=== PATIENT | male | born 1970 | race Caucasian/White ===

== ENCOUNTER 2020-05-13 16:11 | Outpatient (CLI) | payer BC, SELFPAY ==
--- NOTE | ~2020-05-13 | XR_ITS ---
EXAMINATION: XR chest 2V DATE: 05/13/2020 17:02 INDICATION: Cough and shortness of breath. TECHNIQUE: Frontal and lateral views of the chest were obtained. COMPARISON: Chest 2 views 04/02/19 FINDINGS: The chest demonstrates clear lungs without pneumonia, pleural effusion, or pneumothorax. Th e heart size is normal. There is mild chronic anterior wedging of 2 midthoracic vertebral bodies. IMPRESSION: 1. No acute cardiopulmonary disease. Reviewed, dictated and finalized at location A. [employer]IST
--- NOTE | ~2020-05-13 | US_ITS ---
EXAMINATION: US right upper quadrant DATE: 05/13/2020 16:58 INDICATION: Right upper quadrant abdominal pain. TECHNIQUE: Multiple grayscale and Doppler ultrasound images of the abdomen were obtained. COMPARISON: None FINDINGS: The visualized portions of the head and body of the pancreas are normal. There is diffuse h epatic steatosis. No liver surface nodularity. There is normal flow in main portal vein. The gallblad sai is normal in size. No gallstones or gallbladder wall thickening. There was no sonographic Gregg sign. The common duct is normal and measures 4 mm. Right kidney is normal. IMPRESSION: 1. Diffuse hepatic steatosis. Reviewed, dictated and finalized at location A. [employer]
--- NOTE | 2020-05-13 16:26 | ECG_ITS ---
Measurements Intervals [place] Rate: 64 P: 21 NC: 175 QRS: 17 QRSD: 113 T: 58 QT: 378 QTc: 390 Interpretive Statements SINUS RHYTHM BASELINE ARTIFACT- V3 NORMAL ECG Electronically Signed On 05-13-2020 19:17:43 [employer] COACH by Ruddy Robb D.O.
[2020-05-13 17:11] LABS: Basophils Percent Auto 0.2 % (0.2-1.2); Eosinophils Absolute Auto 0.1 K/mm3 (0-0.3); Hematocrit 46.5 % (42.0-52.0); Hemoglobin 16.7 g/dL (14.0-18.0); Immature Granulocyte Absolute 0.03 K/mm3 (0.00-0.031); Immature Granulocyte Percent A 0.2 % (0-0.5); Lymphocytes Absolute Auto 4.94 K/mm3 (0.9-3.2); Lymphocytes Percent Auto 40.8 % (18.3-44.2); Mean Corpuscular HGB Conc 35.9 g/dl (32-36); Mean Corpuscular Hemoglobin 33.5 pg (26-34); Mean Corpuscular Volume 93.2 fl (80-100); Mean Platelet Volume 9.5 fl (7.4-10.4); Monocytes Absolute Auto 0.7 K/mm3 (0.1-0.6); Monocytes Percent Auto 5.4 % (2.6-8.5); Neutrophils Absolute Auto 6.4 K/mm3 (1.3-6.7); Neutrophils Percent Auto 52.4 % (45.5-73.1); Platelet Count Result 222 k/mm3 (150-375); Red Blood Count 4.99 M/mm3 (4.6-6.20); Red Cell Distribution Width 12.9 % (11.5-14.5); White Blood Count 12.1 K/mm3 (4.5-10.0)
[2020-05-13 17:23] LABS: Alanine Aminotransferase 42 U/L (4-50); Albumin Level 4.4 g/dL (3.5-5.1); Alkaline Phosphatase 58 U/L (38-126); Amylase 59 U/L (30-110); Anion Gap 3 mmol/L (8-16); Aspartate Amino Transferase 40 U/L (17-59); Bilirubin,Total 0.6 mg/dL (0.2-1.3); Blood Urea Nitrogen 9 mg/dL (9-20); Calcium 9.4 mg/dL (8.4-10.2); Carbon Dioxide 35 mmol/L (22-30); Chloride 102 mmol/L (98-107); Estimated Glomerular Filt Rate > 60; Glucose 89 mg/dL (75-110); Lipase 49 U/L (23-300); Potassium 3.8 mmol/L (3.4-5.0); Sodium 140 mmol/L (137-145)
== END 2020-05-13 16:12 | disposition home or self-care (01) ==
PROVIDERS: PCP Family Medicine; Visit Provider Nurse Practitioner Family
DX: R10.11 Right upper quadrant pain (principal); R06.02 Shortness of breath; R05 Cough; R53.83 Other fatigue; R10.13 Epigastric pain; K76.0 Fatty (change of) liver, not elsewhere classified
CPT/HCPCS: 36415; 71046; 76705; 80053; 82150; 83690; 84443; 85025; 93005

== ENCOUNTER 2020-05-19 10:19 | Outpatient (CLI) | payer BC, SELFPAY ==
--- NOTE | ~2020-05-19 | XR_ITS ---
EXAMINATION: XR sniff test with CXR2V EXAM DATE: 05/19/2020 10:38 INDICATION: R06.02 - Shortness of breath . TECHNIQUE: Sniff test performed, forceful inspiration through nose while fluoroscopy administered ce ntered at the diaphragm. Frontal and lateral chest x-rays. Dose reduction digital pulsed fluoroscopy was used at 4 frames per second with DAP 0.4 Gycm2. Chest x-ray 05/13/2020 FINDINGS: The lungs are clear. There are no pleural effusions. The cardiomediastinal silhouette is within normal limits. There is no pneumothorax suspected. The bones and soft tissues are unremarkab le. Diaphragm moves in symmetric fashion. Right hemidiaphragm has normal position. IMPRESSION: 1. Unremarkable chest x-ray. 2. Normal diaphragm motion. Reviewed, dictated and finalized at location A. 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
== END 2020-05-19 10:20 | disposition home or self-care (01) ==
PROVIDERS: PCP Family Medicine; Visit Provider Nurse Practitioner Family
DX: R06.02 Shortness of breath (principal); R10.9 Unspecified abdominal pain
CPT/HCPCS: 71046; 76000

== ENCOUNTER 2020-05-27 12:28 | Outpatient (CLI) | payer BC, SELFPAY ==
--- NOTE | ~2020-05-27 | CT_ITS ---
EXAMINATION: CT diagnostic chest wo con EXAM DATE: 05/27/2020 13:00 INDICATION: Dyspnea after COVID 19. Chronic cough. TECHNIQUE: Spiral CT of the chest without contrast. Axial, coronal and sagittal images were reviewe d. Coronal maximum intensity pixel images of chest reviewed. The dose-length product (DLP) for this examination was 326.48 mGy-cm. The exposure was tailored according to patient size (auto mA exposur e control), and iterative reconstruction (ASIR) was used as additional dose reduction technique. Glenys elation is made to stiff test 05/19/2020, chest x-ray 05/13/2020, chest x-ray 04/02/2019. FINDINGS: There is mild emphysema. The lungs are clear, no evidence of interstitial lung disease or s carring from patient's episode of COVID. There are a few scattered calcified lung parenchymal granul omas. There are no pleural or pericardial effusions. Tracheobronchial tree is patent. There is no mediastinal, hilar or axillary lymphadenopathy. There is no pneumothorax. Heart normal in size. There is mild coronary arterial calcification, arterial sclerosis. Upper abdomen is unremarkable. There is thoracic spondylosis without osteoblastic or osteolytic lesions identified. IMPRESSION: 1. No evidence of residual sequela from COVID pneumonia. 2. Mild emphysema. 3. Hepatic steatosis. Reviewed, dictated and finalized at location A. 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
== END 2020-05-27 12:29 ==
PROVIDERS: PCP Family Medicine; Visit Provider Nurse Practitioner Family
DX: R06.00 Dyspnea, unspecified (principal); J43.9 Emphysema, unspecified; K76.0 Fatty (change of) liver, not elsewhere classified
CPT/HCPCS: 71250

== ENCOUNTER 2020-07-07 14:28 | Outpatient (CLI) | payer OTHER, SELFPAY ==
--- NOTE | 2020-07-07 17:48 | P.PCNPFT_ITS ---
PFT Interpretation This is a pulmonary function test with pre and post-bronchodilator spirometry, plethysmography and diffusing capacity. The test was performed and results interpreted in accordance with the 2019 and 2005 ATS/ERS Task Force guidelines respectively using the Global Lung Function Initiative-2012 reference equations. Patient demonstrated good effort and c ooperation. Reproducibility criteria were met. The quality of the pre bronchodilator spirometry maneuver was Grade A and post bronchodilator spirometry maneuver was Grade A. Findings: Spirometry: The contour of the inspiratory and expiratory flow tracing are normal. The pre bronchodilator FVC is 4.64 L, 91% predicted.The pre bronchodilator FEV1 is 3.33 L, 83% predicted. The FEV1: FVC ratio 72%. The post bronchodilator FVC is 4.79 L, representing 3% increase. The post bronchodilator FEV1 is 3.54 L, representing a 6% increase. Plethysmography: The total lung capacity is 6.55 L, 92% predicted. The functional residual capacity is 2.73 L, 74% predicted. The residual volume is 1.90 L, 90% predicted. Diffusing capacity: The absolute diffusion capacity is 19.7, 64% predicted. The diffusing capacity corrected for alveolar volume is 3.64, 81% predicted. Impression: The spirometry is normal without evidence of an obstructive abnormality. There is no significant improvement after inhaling a single dose of albuterol. The lung volumes are normal. The absolute diffusing capacity is mildly decreased and normalizes when corrected for alveolar volume. There are no prior studies for comparison
== END 2020-07-07 14:29 | disposition home or self-care (01) ==
LOC: ANHPFT 14:29
PROVIDERS: PCP Family Medicine; Visit Provider Internal Medicine Critical Care Medicine
DX: J44.9 Chronic obstructive pulmonary disease, unspecified (principal)
CPT/HCPCS: 94060; 94726; 94729

== ENCOUNTER 2021-09-20 08:31 | Outpatient (CLI) | payer OTHER, SELFPAY ==
--- NOTE | ~2021-09-20 | MR_ITS ---
EXAMINATION: MR cervical spine wo con DATE: 09/20/2021 09:23 INDICATION: Degeneration of intervertebral disc. TECHNIQUE: Magnetic resonance imaging (MRI) of the cervical spine was performed without intravenous c ontrast. Sequences included sagittal T2-weighted FSE, sagittal T2-weighted FS FSE, sagittal T1-weight ed FSE, axial MERGE, and axial T2-weighted FSE. COMPARISON: Cervical spine MRI 07/08/2017 FINDINGS: There is 5 degrees dextrocurvature of cervical spine. Vertebral body heights are normal in cervical spine. Intervertebral disc heights are normal. The spinal cord signal intensity is normal. T he following disc levels are specifically discussed: C2-C3: The disc does not extend beyond the endplate margin. There is no uncovertebral joint osteoarth ritis. There is mild bilateral facet joint osteoarthritis. There is no neural foraminal stenosis. The re is no central canal stenosis. C3-C4: The disc does not extend beyond the endplate margin. There is mild right and moderate left unc overtebral joint osteoarthritis. There is moderate left facet joint osteoarthritis. There is moderate left neural foraminal stenosis. There is no central canal stenosis. C4-C5: The disc does not extend beyond the endplate margin. There is mild bilateral uncovertebral willa nt osteoarthritis. There is mild right and severe left facet joint osteoarthritis. There is mild bila teral neural foraminal stenosis. There is no central canal stenosis. C5-C6: The disc is bulging. There is mild bilateral uncovertebral joint osteoarthritis. There is mild left facet joint osteoarthritis. There is mild bilateral neural foraminal stenosis. There is mild ce ntral canal stenosis. C6-C7: The disc is bulging. There is mild bilateral uncovertebral joint osteoarthritis. There is mode rate right and mild left facet joint osteoarthritis. There is mild right and moderate left neural for aminal stenosis. There is no central canal stenosis. C7-T1: The disc does not extend beyond the endplate margin. There is no uncovertebral joint osteoarth ritis. There is severe right and moderate left facet joint osteoarthritis. There is mild bilateral ne ural foraminal stenosis. There is no central canal stenosis. IMPRESSION: 1. Moderate left neural foraminal stenosis at C3-C4 and C6-C7. Otherwise mild cervical spondylosis. Reviewed, dictated and finalized at location A. IMPRESSION: 1. Moderate left neural foraminal stenosis at C3-C4 and C6-C7. Otherwise mild c ervical spondylosis.
--- NOTE | ~2021-09-20 | MR_ITS ---
EXAMINATION: MR thoracic spine wo con DATE: 09/20/2021 09:23 INDICATION: Degeneration of intervertebral disc. TECHNIQUE: Magnetic resonance imaging (MRI) of the thoracic spine was performed without intravenous c ontrast. Sagittal localizer T1-weighted FSE of the cervical spine was obtained. Thoracic spine sequen jon included sagittal T2-weighted FSE, sagittal T1-weighted FSE, sagittal T2-weighted FS FSE, and axi al T2-weighted FSE. COMPARISON: Chest CT 05/27/2020 FINDINGS: Bone alignment is normal. There is mild chronic height loss of T7, T8, and T9 vertebral bod ies. There are Schmorl's nodes at multiple levels. Intervertebral disc heights are normal. At T3-T4, there is a central protrusion with mild central canal stenosis. At T4-T5, there is a central extrusio n with mild central canal stenosis and ventral indentation of the spinal cord. At T5-T6, there is a r ight central extrusion with mild central canal stenosis and ventral indentation of the spinal cord. A t T6-T7, there is a left central extrusion with mild central canal stenosis and ventral indentation o f the spinal cord. At T7-T8, the disc is bulging with mild central canal stenosis. Epidural lipomatos is is noted. There is multilevel mild to moderate facet joint osteoarthritis. At T2-T3, there is joann re right facet joint osteoarthritis. No neural foraminal stenosis. IMPRESSION: 1. Mild thoracic spondylosis. Reviewed, dictated and finalized at location A.
--- NOTE | ~2021-09-20 | MR_ITS ---
EXAMINATION: MR lumbar spine wo con DATE: 09/20/2021 09:30 INDICATION: Degeneration of intervertebral disc. Mid to low back pain. TECHNIQUE: Magnetic resonance imaging (MRI) of the lumbar spine was performed without intravenous con trast. Sequences included sagittal T2-weighted FSE, sagittal T2-weighted FS FSE, sagittal T1-weighted FSE, and axial T2-weighted FSE. COMPARISON: None FINDINGS: There is 4 degrees levocurvature of lumbar spine. There is 3 mm retrolisthesis of L5 on S1. Vertebral body heights are normal. There is moderately decreased disc height at L5-S1 with endplate remodeling. The distal spinal cord signal intensity is normal. The conus medullaris is at L1. The fol lowing disc levels are specifically discussed: L1-L2: The disc does not extend beyond the endplate margin. There is mild left facet joint osteoarthr itis. There is no neural foraminal stenosis. There is no central canal stenosis. L2-L3: The disc does not extend beyond the endplate margin. There is mild bilateral facet joint osteo arthritis. There is no neural foraminal stenosis. There is no central canal stenosis. L3-L4: The disc does not extend beyond the endplate margin. There is mild bilateral facet joint osteo arthritis. There is no neural foraminal stenosis. There is no central canal stenosis. L4-L5: There is a right foraminal extrusion. There is moderate right and mild left facet joint osteoa rthritis. There is moderate right neural foraminal stenosis. There is mild stenosis of right lateral recess. L5-S1: The disc is bulging with superimposed central extrusion. There is mild right and moderate left facet joint osteoarthritis. There is moderate bilateral neural foraminal stenosis. There is mild jessica tral canal stenosis. IMPRESSION: 1. Moderate lower lumbar spondylosis. Reviewed, dictated and finalized at location A.
--- NOTE | ~2021-09-20 | XR_ITS ---
EXAMINATION: XR shoulder LT min 2V DATE: 09/20/2021 09:43 INDICATION: Left shoulder pain. TECHNIQUE: 4 views of left shoulder were obtained. COMPARISON: None. FINDINGS: Bone alignment is normal. No fracture. There is mild osteoarthritis of glenohumeral joint a nd acromioclavicular joint characterized by tiny osteophytes. IMPRESSION: 1. Mild polyarticular osteoarthritis. Reviewed, dictated and finalized at location A.
== END 2021-09-20 08:32 ==
PROVIDERS: PCP Family Medicine; Visit Provider Family Medicine
DX: M47.815 Spondylosis without myelopathy or radiculopathy, thoracolumbar region (principal); M48.05 Spinal stenosis, thoracolumbar region; M47.813 Spondylosis without myelopathy or radiculopathy, cervicothoracic region; M48.03 Spinal stenosis, cervicothoracic region; M19.012 Primary osteoarthritis, left shoulder
CPT/HCPCS: 72141; 72146; 72148; 73030

== ENCOUNTER 2024-06-16 14:41 | Outpatient (CLI) | payer OTHER, SELFPAY ==
--- NOTE | ~2024-06-16 | XR_ITS ---
EXAM: XR pelvis 1-2V, XR hip BI wo pelvis DATE: 06/16/2024 15:08 HISTORY: NON TRAUMA ERINN HIP PAIN . COMPARISON: None available. FINDINGS: Normal mineralization. No fracture or dislocation. No lytic or blastic lesion. Mild bilate ral superior hip joint space narrowing. Lumbar degenerative disc disease. Mild scattered pelvic enthe sopathy. No erosion or periosteal change. Scattered vascular calcifications. IMPRESSION: Mild bilateral hip osteoarthritis. Reviewed, dictated and finalized at location K. RMINATOR HELPER IMPRESSION: Mild bilateral hip osteoarthritis.
--- OUTSIDE RECORDS SUMMARY | 2024-06-16 17:38 | XMS_ITS | Data Portability ---
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 Plan of Treatment Reminders Order Date Submit Date Provider Last Modified By Organization Details Last Modified Time Details Appointments None recorded. Lab [facility], serum or plasma [address] [email or web address] Not available 3 12:12:15 testosteron e, free + total, serum 2022 023 [facility] Not available 3 12:08:02 BMP, serum or plasma 2022 023 [facility] [email or web address] Not available 3 12:10:07 lipid panel, serum 2022 023 [facility] [email or web address] Not available 3 12:06:28 hepatic function panel, serum 2022 023 [facility] gh[facility] Not available 3 12:07:24 CBC w/ auto diff [address] [facility] Not available 3 12:56:50 Referral None recorded. Procedures None recorded. Surgeries None recorded. Imaging None recorded. Medication Orders hydrocodone 10 mg-acetamin ophen 325 mg tablet 2022 023 [facility], [address], [place], [id number], 3 12:24:18 ipratropium 0.5 mg-albutero l 3 mg (2.5 mg base)/3 mL nebulizatio n soln 2022 023 [facility] #17892, [address], [place], [id number], 12:20:36 tadalafil 20 mg tablet 2022 023 [facility] #60329, [address], [place], [id number], 09:37:11 Patient TargetsNo targets recorded. Patient InstructionsNo instructions recorded. Reason for Referral None Reported. Results Created Date Observation Date Name Description Value Unit Range Abnormal Flag Note LastModifiedBy Organization Detail LastModifiedTime 07/04/1907/03/2022 CBC/C OMPLE TE BLD COUNT W/DIF F white blood cells 12.6 x10'3 /uL 4.2-10 .8 high Not Available [facility] (Lab) [address] [place], [address], 07/03/2022 19:50:28 07/04/19 23 07/03/2022 CBC/C OMPLE TE BLD COUNT W/DIF F red blood cells 5.08 x10'6 /uL 4.10-5 .80 Not Available [facility] (Lab) [address] [place], [address], 07/03/2022 19:50:28 07/04/19 23 07/03/2022 CBC/C OMPLE TE BLD COUNT W/DIF F hemoglobin 16.5 g/dL 13.2-1 7.0 Not Available [facility] (Lab) [address] [place], [address], 07/03/2022 19:50:28 07/04/19 23 07/03/2022 CBC/C OMPLE TE BLD COUNT W/DIF F hematocrit 48.6 % 39.3-5 0.0 Not Available [facility] (Lab) [address] [place], [address], 07/03/2022 19:50:28 07/04/19 23 07/03/2022 CBC/C OMPLE TE BLD COUNT W/DIF F mean red cell volume 95.7 fL 80.0-9 7.0 Not Available [facility] (Lab) [address] [place], [address], 07/03/2022 19:50:28 07/04/19 23 07/03/2022 CBC/C OMPLE TE BLD COUNT W/DIF F mean red cell hemoglobin 32.5 pg 27.0-3 3.0 Not Available [facility] (Lab) [address] [place], [address], 07/03/2022 19:50:28 07/04/19 23 07/03/2022 CBC/C OMPLE TE BLD COUNT W/DIF F mean RBC HGB concentratio n 34.0 g/dL 31.0-3 6.0 Not Available [facility] (Lab) [address] [place], [address], 07/03/2022 19:50:28 07/04/19 23 07/03/2022 CBC/C OMPLE TE BLD COUNT W/DIF F red cell distribution width 13.0 % 11.8-1 5.5 Not Available [facility] (Lab) [address] [place], [address], 07/03/2022 19:50:28 07/04/19 23 07/03/2022 CBC/C OMPLE TE BLD COUNT W/DIF F platelets 232 x10'3 /uL 150-40 0 Not Available [facility] (Lab) [address] [place], [address], 07/03/2022 19:50:28 07/04/19 23 07/03/2022 CBC/C OMPLE TE BLD COUNT W/DIF F mean platelet volume 10.4 fL 9.0-12 .4 Not Available [facility] (Lab) [address] [place], [address], 07/03/2022 19:50:28 07/04/19 23 07/03/2022 CBC/C OMPLE TE BLD COUNT W/DIF F neutrophils 64.6 % 39.0-7 2.0 Not Available [facility] (Lab) [address] [place], [address], 07/03/2022 19:50:28 07/04/1907/03/2022 CBC/C OMPLE TE BLD COUNT W/DIF F lymphocytes 28.3 % 16.0-4 7.0 Not Available [facility] (Lab) [address] [place], [address], 07/03/2022 19:50:28 07/04/19 23 07/03/2022 CBC/C OMPLE TE BLD COUNT W/DIF F monocytes 5.0 % 5.0-12 .0 Not Available [facility] (Lab) [address] [place], [address], 07/03/2022 19:50:28 07/04/1907/03/2022 CBC/C OMPLE TE BLD COUNT W/DIF F eosinophils 1.3 % 1.0-7. 0 Not Available [facility] (Lab) [address] [place], [address], 07/03/2022 19:50:28 07/04/19 23 07/03/2022 CBC/C OMPLE TE BLD COUNT W/DIF F basophils 0.3 % 0.0-2. 0 Not Available [facility] (Lab) [address] [place], [address], 07/03/2022 19:50:28 07/04/19 23 07/03/2022 CBC/C OMPLE TE BLD COUNT W/DIF F immature granulocytes 0.5 % 0.00-0 .50 Not Available [facility] (Lab) [address] [place], [address], 07/03/2022 19:50:28 07/04/19 23 07/03/2022 CBC/C OMPLE TE BLD COUNT W/DIF F neutrophils, absolute count 8.17 x10'3 /uL 1.5-8. 0 high Not Available [facility] (Lab) [address] [place], [address], 07/03/2022 19:50:28 07/04/19 23 07/03/2022 CBC/C OMPLE TE BLD COUNT W/DIF F lymphocytes, absolute count 3.58 x10'3 /uL 1.07-3 .43 high Not Available [facility] (Lab) [address] [place], [address], 07/03/2022 19:50:28 07/04/1907/03/2022 CBC/C OMPLE TE BLD COUNT W/DIF F monocytes, absolute count 0.63 x10'3 /uL 0.29-0 .99 Not Available [facility] (Lab) [address] [place], [address], 07/03/2022 19:50:28 07/04/19 23 07/03/2022 CBC/C OMPLE TE BLD COUNT W/DIF F eosinophils, absolute count 0.16 x10'3 /uL 0.02-0 .53 Not Available [facility] (Lab) [address] [place], [address], 07/03/2022 19:50:28 07/04/19 23 07/03/2022 CBC/C OMPLE TE BLD COUNT W/DIF F basophils, absolute count 0.04 x10'3 /uL 0.01-0 .08 Not Available [facility] (Lab) [address] [place], [address], 07/03/2022 19:50:28 07/04/19 23 07/03/2022 CBC/C OMPLE TE BLD COUNT W/DIF F immature granulocytes ,absolute 0.06 x10'3 /uL 0.00-0 .05 high Not Available [facility] (Lab) [address] [place], [address], 07/03/2022 19:50:28 07/04/19 23 07/03/2022 CBC/C OMPLE TE BLD COUNT W/DIF F nucleated red blood cells 0.0 % -0 Not Available [facility] (Lab) [address] [place], [address], 07/03/2022 19:50:28 07/04/19 23 07/03/2022 CBC/C OMPLE TE BLD COUNT W/DIF F NRBC# 0.00 x10'3 /uL Not Available [facility] (Lab) [address] [place], [address], 07/03/2022 19:50:28 07/04/19 23 07/03/2022 BASIC METAB OLIC PANEL sodium 137 mmol/ L 137-14 5 Not Available [facility] (Lab) [address] [place], [address], 07/03/2022 21:22:22 07/04/19 23 07/03/2022 BASIC METAB OLIC PANEL potassium 4.0 mmol/ L 3.5-5. 1 Not Available [facility] (Lab) [address] [place], [address], 07/03/2022 21:22:22 07/04/19 23 07/03/2022 BASIC METAB OLIC PANEL chloride 107 mmol/ L 98-107 Not Available [facility] (Lab) [address] [place], [address], 07/03/2022 21:22:22 07/04/19 23 07/03/2022 BASIC METAB OLIC PANEL carbon dioxide 19 mmol/ L 22-30 low Not Available [facility] (Lab) [address] [place], [address], 07/03/2022 21:22:22 07/04/19 23 07/03/2022 BASIC METAB OLIC PANEL anion gap 15.0 mmol/ L 14-22 Not Available [facility] (Lab) [address] [place], [address], 07/03/2022 21:22:22 07/04/19 23 07/03/2022 BASIC METAB OLIC PANEL glucose 116 mg/dL 70-99 high Not Available [facility] (Lab) [address] [place], [address], 07/03/2022 21:22:22 07/04/19 23 07/03/2022 BASIC METAB OLIC PANEL BUN 11 mg/dL 8-19 Not Available [facility] (Lab) [address] [place], [address], 07/03/2022 21:22:22 07/04/19 23 07/03/2022 BASIC METAB OLIC PANEL creatinine 0.69 mg/dL 0.66-1 .25 Not Available [facility] (Lab) [address] [place], [address], 07/03/2022 21:22:22 07/04/19 23 07/03/2022 BASIC METAB OLIC PANEL GFR >60 Refer ence Range : [place] [facility] GFR Healt hy Adult : >60 mL/mi n/1.7 3 m2 Chron ic Kidne y Disea se: 15-60 mL/mi n/1.7 3 m2 Kidne y Failu re: <15/m L/min /1.73 m2 www.n iddk. nih.g ov The MDRD study equat ion has not been valid ated in child darrel <18 years of age; pregn ant women ; the elder ly >85 years of age; or in some racia l or ethni c subgr oups, such as Hispa nics. Outsi de the valid ated kalli eters , estim ated GFR is less accur ate, requi ring clini juan pablo judgm ent on a case- by-ca se basis . Clini juan pablo inter preta tion for other races and ages must be made by the clini mauricio. The MDRD study equat ion has not been valid ated for the evalu ation of serum creat inine relat ed to nutri joseluis l statu s or medic ation usage . For perso ns <18 years of age, a pedia tric GFR calcu lator is avail able on the [facility] websi te: https ://evangelina noble.pricila barrera.o adrian/pr alvaradoess ional s/kdo qi/gf r_cal culat or Not Available [facility] (Lab) [address] [place], [address], 07/03/2022 21:22:22 07/04/19 23 07/03/2022 BASIC METAB OLIC PANEL calcium 9.2 mg/dL 8.4-10 .2 Not Available [facility] (Lab) [address] [place], [address], 07/03/2022 21:22:22 07/04/19 23 07/03/2022 LIPID PANEL cholesterol 116 mg/dL 140-19 9 low NIH MEL NSUS RECOM MENDA TION FOR ELIOT STERO L: ADULT CHILD LOW RISK: <200 <170 BORDE RLINE : <200- 239 ----- HIGH RISK: >240 >200 Not Available [facility] (Lab) [address] [place], [address], 07/03/2022 21:22:28 07/04/19 23 07/03/2022 LIPID PANEL triglyceride s 162 mg/dL 0-150 high NIH MEL NSUS REPOR T RECOM MENDA TION FOR TRIGL YCERI ARIEL: ADULT CHILD LOW RISK: <150 ----- BODER LINE: 150-1 99 ----- HIGH RISK: >200 ----- Not Available [facility] (Lab) [address] [place], [address], 07/03/2022 21:22:28 07/04/19 23 07/03/2022 LIPID PANEL HDL cholesterol 35 mg/dL 40- low Not Available [facility] (Lab) [address] [place], [address], 07/03/2022 21:22:28 07/04/19 23 07/03/2022 LIPID PANEL LDL cholesterol, calculated 49 mg/dL 0-130 NIH MEL NSUS REPOR T RECOM MENDA TIONS FOR LDL: ADULT CHILD LOW RISK <130 <110 (OPTI MAL LDL) <100 ----- MICHELLE RLINE : 130-1 59 ----- HIGH RISK: >160 >130 A TRIGL YCERI DE RESUL T >400 INVAL IDATE S THE CALCU LATIO N FOR LDL FRACT IONAT ION - THE LDL RESUL T WILL NOT BE REPOR BRANDI. Not Available [facility] (Lab) [address] [place], [address], 07/03/2022 21:22:28 07/04/19 23 07/03/2022 HEPAT IC/LI FREDERICK PANEL alkaline phosphatase 76 U/L 38-126 Not Available [facility] (Lab) [address] [place], [address], 07/03/2022 21:22:29 07/04/19 23 07/03/2022 HEPAT IC/LI FREDERICK PANEL alanine aminotransfe rase 45 U/L 0-50 Not Available [facility] (Lab) [address] [place], [address], 07/03/2022 21:22:29 07/04/19 23 07/03/2022 HEPAT IC/LI FREDERICK PANEL aspartate aminotransfe rase 33 U/L 15-46 Not Available [facility] (Lab) [address] [place], [address], 07/03/2022 21:22:29 07/04/19 23 07/03/2022 HEPAT IC/LI FREDERICK PANEL bilirubin, total 0.60 mg/dL 0.20-1 .30 Not Available [facility] (Lab) [address] [place], [address], 07/03/2022 21:22:29 07/04/19 23 07/03/2022 HEPAT IC/LI FREDERICK PANEL bilirubin, conjugated (direct) 0.00 mg/dL 0.00-0 .30 Not Available [facility] (Lab) [address] [place], [address], 07/03/2022 21:22:29 07/04/19 23 07/03/2022 HEPAT IC/LI FREDERICK PANEL biliurubin,u ncong. (indirect) 0.20 mg/dL 0.00-1 .1 Not Available [facility] (Lab) [address] [place], [address], 07/03/2022 21:22:29 07/04/19 23 07/03/2022 HEPAT IC/LI FREDERICK PANEL total protein 7.0 g/dL 6.3-8. 2 Not Available [facility] (Lab) [address] [place], [address], 07/03/2022 21:22:29 07/04/19 23 07/03/2022 HEPAT IC/LI FREDERICK PANEL albumin 4.4 g/dL 3.4-5. 0 Not Available [facility] (Lab) [address] [place], [address], 07/03/2022 21:22:29 07/04/19 23 07/03/2022 HEPAT IC/LI FREDERICK PANEL globulin 2.6 g/dL 2.6-4. 2 Not Available [facility] (Lab) [address] [place], [address], 07/03/2022 21:22:29 07/04/19 23 07/03/2022 HEPAT IC/LI FREDERICK PANEL A/G ratio 1.7 ratio 1.0-2. 0 Not Available [facility] (Lab) [address] [place], [address], 07/03/2022 21:22:29 07/04/19 23 07/03/2022 PSA SCREE N PSA medicare screen 1.08 NG/mL 0.00-4 .00 Not Available Not Available 07/03/2022 22:02:35 07/04/19 23 07/14/2022 TESTO STERO NE, FREE+ TOTAL LC/MS testosterone , total, lc/MS 265.7 NG/dL 264.0- 916.0 This [facility] LC/MS -MS metho d is curre ntly certi fied by the CDC Hormo ne Stand ardiz ation Progr am (HoSt ). Adult male refer ence inter daniella is based on a popul ation of healt hy nonob froylan males (BMI <30) betwe en 19 and 39 years old. Araceli mercedes et.al . JCEM 2017, 102;1 161-1 173. PMID: 91774 103. Not Available [facility] (Lab) [address] [place], [address], 07/14/2022 12:12:01 07/04/19 23 07/14/2022 TESTO STERO NE, FREE+ TOTAL LC/MS testosterone , free 5.71 NG/dL 5.00-2 1.00 Not Available [facility] (Lab) [address] [place], [address], 07/14/2022 12:12:01 07/04/19 23 07/14/2022 TESTO STERO NE, FREE+ TOTAL LC/MS % free testosterone 2.15 % 1.50-4 .20 Perfo rmed at: [facility] [place] [address] [facility] , [place] [address] [address] Lab Direc tor: Renu taylor MD, Phone : [phone] Not Available [facility] (Lab) [address] [place], [address], 07/14/2022 12:12:01 06/16/19 25 06/16/2024 imagi ng/di alvinoos tic resul t No observ ation record ed. [facility] [address], [place], [address], 06/16/2024 17:04:52 Result Notes None recorded. Problems Name Problem SNOMED Code Status Onset Date Resolution Date Notes Provider Name and Address Organization Details Recorded Time Open wound of hand 962602363 Active 2021 Not Available [facility] 3 14:48:27 Chronic obstructiv e pulmonary disease 62369806 Active 2021 Not Available [facility] 3 14:48:27 Hand and wrist extensor tendon rupture 007740420 Active 2021 Not Available [facility] 3 14:48:28 Injury of muscle and tendon at forearm level 244404767 Active 2021 Not Available [facility] 3 14:48:28 Laceration of hand 099911305 Active 2021 Not Available [facility] 3 14:48:28 Scoliosis deformity of spine 997700633 Active 2021 Not Available [facility] 3 14:48:28 Pain in right hand 6926147602019 09 Active 2021 Not Available [facility] 3 14:48:28 Osteoarthr itis 640771406 Active 2021 Not Available [facility] 3 14:48:28 Hyperlipid emia 11950796 Active 2021 Not Available [facility] 3 14:48:28 Degenerati on of interverte bral disc 73531314 Active 2021 Not Available [facility] 3 14:48:28 Erectile dysfunctio n 081620578 Active 2022 Domonique Troy MD [address], [place], [address] , [facility] [employer] [facility] 3 09:29:29 Insomnia 809653601 Active 2022 Domonique Troy MD [address], [facility] [address], [place], [address] , [facility] [employer] [facility] 3 17:43:00 Problem Notes None recorded. Procedures Surgical History Date Name Laterality Status Provider Name and Address Organization Details Recorded Time 2 colonoscopy completed Domonique Troy MD [address], [place], [address], [facility] [employer] [facility] 07/06/2022 10:59:47 Imaging Results Imaging Date Name Status LastModified by Organiz ation Details LastModified Time 06/16/2024 imaging/diagn ostic result active [place] [address], [place], [address], 06/16/2024 17:04:52 Procedure Notes None recorded. Medical Equipment None Reported. Medications Name Sig Start Date Stop Date Status Note LastModified by Organization Details LastModified Time doxycycline hyclate 100 mg capsule 10/12 completed Not Available Not Available Not Available ipratropium 0.5 mg-albutero l 3 mg (2.5 mg base)/3 mL nebulizatio n soln USE 3 ML VIA NEBULIZER FOUR TIMES DAILY active Not Available Not Available No t Available hydroxyzine HCl 50 mg tablet TAKE 1 TABLET BY MOUTH EVERY 6 HOURS NEEDED FOR ANXIETY active Not Available Not Available No t Available hydrocodone 10 mg-acetamin ophen 325 mg tablet TAKE 1 TABLET BY MOUTH FOUR TIMES DAILY NEEDED active Not Available Not Available No t Available aspirin 81 mg tablet,alonso yed release Take 1 tablet every day by oral route. 2021 active Not Available Not Available Not Avai lable hydrocodone 7.5 mg-acetamin ophen 325 mg tablet TAKE 1 TABLET BY MOUTH EVERY 6 HOURS active Not Available Not Available No t Available cephalexin 500 mg capsule Take 1 capsule twice a day by oral route for 7 days. active Not Available Not Available No t Available promethazin e 25 mg tablet 07/03 completed Not Available Not Available Not Available ibuprofen 600 mg tablet 07/03 completed Not Available Not Available Not Available levofloxaci n 750 mg tablet TAKE 1 TABLET BY MOUTH ONCE DAILY FOR 7 DAYS 12/07 completed Not Available Not Available Not Available zolpidem 10 mg tablet TAKE 1 TABLET BY MOUTH EVERY NIGHT AT BEDTIME NEEDED FOR INSOMNIA active Not Available Not Available No t Available methylpredn isolone 4 mg tablets in a dose pack TAKE BY MOUTH DIRECTED ON INSIDE OF PACKAGE active Not Available Not Available No t Available albuterol sulfate HFA 90 mcg/actuati on aerosol inhaler INHALE 2 PUFFS BY MOUTH EVERY 4 HOURS NEEDED active Not Available Not Available No t Available doxycycline hyclate 100 mg tablet Take 1 tablet twice a day by oral route for 7 days. 10/12 completed Not Available Not Available Not Available amoxicillin 875 mg-potassiu m clavulanate 125 mg tablet Take 1 tablet every 12 hours by oral route for 7 days. 07/03 completed Not Available Not Available Not Available escitalopra m 10 mg tablet TAKE 1 TABLET BY MOUTH EVERY DAY active Not Available Not Available No t Available rosuvastati n 20 mg tablet TAKE 1 TABLET BY MOUTH DAILY active Not Available Not Available No t Available tadalafil 20 mg tablet TAKE 1 TABLET BY MOUTH 60 MINUTES BEFORE SEXUAL ACTIVITY. DO NOT EXCEED 1 PILL IN 24 HOURS active Not Available Not Available No t Available Vitals Date Recorded Body mass index (BMI) Body mass index (BMI) Body height Body height Oxygen saturation Oxygen saturation in Arterial blood by Pulse oximetry Pain severity - 0-10 verbal numeric rating [Score] - Reported Heart rate Body temperature Body weight Body weight Systolic blood pressure Diastolic blood pressure Provider Name and Address Organization Details Last Updated DateTime 3 27.8 kg/m2 27.6 kg/m2 180.34 cm 180.34 cm 96 % 96 % 1 81 /min 98 [degF] 30242.8 8 g 16675.2 9 g 121 mm[Hg] 72 mm[Hg] Not Available [facility] 3 14:47:15 Date Recorded Body height Body mass index (BMI) Body weight Body temperature Heart rate Oxygen saturation Oxygen saturation in Arterial blood by Pulse oximetry Systolic blood pressure Diastolic blood pressure Provider Name and Address Organization Details Last Updated DateTime 3 180.34 cm 28.2 kg/m2 36499.6 6 g 97.9 [degF] 80 /min 98 % 98 % 134 mm[Hg] 80 mm[Hg] Aliyah Latham MA [place] [facility] 3 09:18:00 Date Recorded Body height Body mass index (BMI) Body weight Body temperature Heart rate Oxygen saturation Oxygen saturation in Arterial blood by Pulse oximetry Systolic blood pressure Diastolic blood pressure Provider Name and Address Organization Details Last Updated DateTime 3 180.34 cm 29.3 kg/m2 07071.4 g 97.7 [degF] 76 /min 97 % 97 % 124 mm[Hg] 76 mm[Hg] Jens Howard RN [place] [facility] [employer] [employer] 3 12:12:22 Social History Question Answer Notes LastModified by [employer] Details LastModified Time Tobacco Smoking Status Current Every Day Smoker 2 ppd Not Available [facility] 06/28/2022 14:45:26 What Is Your Level Of Alcohol Consumption? None [id number] Information not available 06/28/2022 In The 14 Days Before Symptom Onset, Have You Had Close Contact With A Laboratory-confirm ed COVID-19 While That Case Was Ill? No [id number] Information not available 06/28/2022 In The 14 Days Before Symptom Onset, Have You Had Close Contact With A Person Who Is Under Investigation For COVID-19 While That Person Was Ill? No [id number] Information not available 06/28/2022 What Type Of Diet Are You Following? REGULAR [id number] Information not available 06/28/2022 What Was The Date Of Your Most Recent Tobacco Screening? 10/25/2021 [id number] Information not available 06/28/2022 Have You Recently Traveled Abroad? No [id number] Information not available 06/28/2022 Do You Have Any Dietary Restrictions? No [id number] Information not available 06/28/2022 Sex: Unknown Functional Status Question Answer Note LastModified by [employer] Details LastModified Time What is your exercise level? Heavy [id number] Information not available 06/28/2022 Mental Status None recorded. Family History Relationship Description Onset Age of this Age Resolved Age Notes LastModified by Organization Details LastModified Time Mother Malignant tumor of colon [id number] Not available 06/28/2022 14:45:53 Maternal Grandmother Malignant tumor of colon [id number] Not available 06/28/2022 14:45:53 Sister Cerebrovascu lar accident [id number] Not available 06/28/2022 14:45:53 Sister Systemic lupus erythematosu s [id number] Not available 06/28/2022 14:45:53 Medical History Condition Response ARTHRITIS Y USE OF BLOOD THINNERS Y COPD Y Immunizations Vaccine Type Date Status Note Provider Nam e and Address Organization Details Recorded Time Influenza, split virus, quadrivalent, PF 01/26/2022 completed Not Available [facility] 14:51:46 Past Encounters Encounter ID Performer Location Encounter Start Date Encounter Closed Date Diagnosis/Indication Diagnosis SNOMED-CT Code Diagnosis ICD10 Code Diagnosis Note [id number] [facility] [place] [address] [place] [address] [address] [place] [address] 06/21/2021 00:00:00 06/26/2021 22:11:14 [id number] [facility] [place] [address] [place] [address] [address] [place] [address] 08/31/2021 00:00:00 08/31/2021 17:02:32 [id number] [facility] [place] [address] [place] [address] [address] [place] [address] 09/28/2021 00:00:00 09/28/2021 12:22:48 [id number] [facility] [place] [address] [place] [address] [address] [place] [address] 10/12/2021 00:00:00 10/27/2021 09:52:45 [id number] [facility] [place] [address] [place] [address] [address] [place] [address] 10/17/2021 00:00:00 10/17/2021 18:51:11 [id number] [facility] [place] [address] [facility] [address] [place] [address] 10/25/2021 00:00:00 10/25/2021 11:53:10 [id number] [facility] [place] [address] [place] [address] 11/08/2021 00:00:00 11/08/2021 12:20:24 [id number] [facility] [place] [address] [place] [address] 11/16/2021 00:00:00 11/16/2021 16:58:21 [id number] [facility] [place] [address] [place] [address] 11/22/2021 00:00:00 11/22/2021 14:13:16 [id number] [facility] [place] [address] [place] [address] 12/13/2021 00:00:00 12/13/2021 15:04:03 [id number] [facility] [place] [address] [place] [address] 01/03/2022 00:00:00 01/03/2022 16:56:40 [id number] [facility] [place] [address] [place] [address] 01/26/2022 00:00:00 01/26/2022 18:09:34 [id number] [facility] [place] [address] [place] [address] 01/31/2022 00:00:00 01/31/2022 17:20:38 [id number] [facility] [place] [address] [place] [address] 02/09/2022 00:00:00 02/09/2022 16:28:50 [id number] [facility] [place] [address] [place] [address] 02/28/2022 00:00:00 02/28/2022 14:00:44 [id number] [facility] [place] [address] [place] [address] 03/28/2022 00:00:00 03/28/2022 14:21:46 [id number] [facility] [address] [facility] [address] [place] [address] 04/03/2022 00:00:00 04/03/2022 11:34:17 [id number] [facility] [place]re[place] [address] [place] [address] 06/13/2022 00:00:00 06/13/2022 12:17:43 [id number] Domonique Troy MD [address] [place] [address] 07/03/2022 09:11:50 07/03/2022 09:40:44 Adult health examination [id number] Z00.00 Z13.1 Recommend shingles vaccines seriesTdap up to date 2Recomm end yearly flu and covid vaccinesCh carmen fasting labsColono scopy done 2021-will get report from Dr. Peres to know whenRecomm end smoking cessationP una ldct scan starting age 54 Erectile dysfunction [id number] F52.21 check labstadala nel 20 mg-reviewe d how to use properly and potential med s/e Hyperlipidemia [id number] E78.5 Z79.899 Screening for malignant neoplasm of prostate [id number] Z12.5 [id number] Domonique Troy MD [facility] [address] [facility] [address] [place] [address] 12/07/2022 12:07:08 12/07/2022 12:26:29 Chronic obstructive pulmonary disease [id number] J44.9 nebulizer machine ordereduse duoneb q6 hours prn Degenerati on of intervertebral disc [id number] M51.9 stablePt understand s this medication has risk for abuse/depe ndence and agrees to take it only as prescribed and to guard from loss/theft [id number] GOMEZ Caba-C [facility] [address] [facility] [address] [place] [address] 10/01/2023 15:49:07 10/01/2023 16:21:22 Health Concerns Section Related Observation LastModified by Organization Detai ls LastModified Time None Recorded Concern Status LastModified by Organization Details LastModified Time None Recorded Advance Directives Directive None Recorded Payers Encounter Date Sequence Insurance Name Policy Number Policy Henriquez Covered Member ID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
--- OUTSIDE RECORDS SUMMARY | 2024-06-16 17:38 | XMS_ITS | Referral Summary ---
Author Organization [facility] Address [address] [place] [address] Care Team Providers Care Youth Probation Officer Name Role Phone Unavailable Primary Care Provider Unavailabl e Source Comments [facility],non-owned Affiliates and Associated Physician Practices is amultiple site organization consisting of ambulatory clinics and hospital sitesin [place], [place] and [place]. This disclosure is being madepursuant to the Care Everywhere program and may not contain all information available regarding this patient. Last updated 18.[facility] Social History Tobacco Use Types Packs/Day Years Used Date Smoking Tobacco: Never Assessed Sex and Gender Information Value Date Recorded Sex Assigned at Not on file Gender Identity Not on file Sexual Orientation Not on file Plan of Treatment Not on file
--- OUTSIDE RECORDS SUMMARY | 2024-06-16 17:38 | XMS_ITS | Data Portability ---
Author Organization CHRISTIE ELIASCharles Malcolm Address [address] [place] [address] Assessment Encounter Date Assessment Date Assessment LastModified by Organization Details LastModified Time 01/08/2024 01/08/2024 blood work. Medicines refilled. Nicotine patch. Blood pressure a little bit up he says stressful because of what is going on with the follow up with me in 4 months records from previous clinic LD CT [email or web address] Not available 01/26/2024 21:27:41 05/13/2024 05/13/2024 quitting tobacco care instructions refill medications check blood work he says that awhile back from different physician his cholesterol was 320 he changed his diet dramatically and it came down to 165 so he quit taking his medication we will see what it shows LD CT obtain his colonoscopy report declines pneumococcal or COVID shot [email or web address] Not available 05/13/2024 22:23:42 Plan of Treatment Reminders Order Date Submit Date Provider Last Modified By Organization Details Last Modified Time Details Appointments ANY 15 2024 11:30A M Maxim Almaraz MD Not available Not available Not available Lab lipid panel, serum 2024 025 [facility], [address], [address], [place], [address], 05/15/2024 08:25:33 CMP, serum or plasma 2024 025 [facility], [address], [address], [place], [address], 05/15/2024 08:25:34 CBC w/ auto diff 2024 025 [facility], [address] [facility], [place], [address], 05/15/2024 08:25:36 CBC w/ auto diff 2023 024 [facility], [address] [facility], [place], [address], 01/09/2024 08:31:27 lipid panel, serum 2023 024 [facility], [address] [facility] [address], [place], [address], 01/09/2024 08:31:26 CMP, serum or plasma 2023 024 [facility], [address] [facility] [address], [place], [address], 01/09/2024 08:31:26 Referral None recorded. Procedures None recorded. Surgeries None recorded. Imaging LDCT, chest, for lung cancer screening 2024 025 [facility] (Imaging), [address] [place] [address] [address], [place], [address], 05/22/2024 14:11:24 LDCT, chest, for lung cancer screening 2023 024 [facility] ([facility]), [address] [place], [address], 05/13/2024 17:18:03 Medication Orders tadalafil 20 mg tablet 2024 025 [email or web address] [id number], [address] [place], [place], [id number], 05/13/2024 17:25:07 nicotine 7 mg/24 hr daily transderm al patch [address] [facility] [address] [facility], [address] [place], [address], 01/08/2024 18:17:15 nicotine 14 mg/24 hr daily transderm al patch [address] [facility] [address] [facility], [address] [place], [address], 01/08/2024 18:17:15 nicotine 21 mg/24 hr daily transderm al patch [address] [facility] [address] [facility], [address] [place] [address], [address], 01/08/2024 18:17:15 albuterol sulfate HFA 90 mcg/actua tion aerosol inhaler [address] [facility] [address] [facility], [address] [place] [address], [address], 01/08/2024 18:17:15 Patient TargetsNo targets recorded. Patient Instructions Encounter Date Encounter Id Patient Instructions Last Modified By Organization Details Last Modified Time 05/13/2024 [id number] Quitting Tobacco : Care Instructions [email or web address] Not available 05/13/2024 17:25:07 Reason for Referral None Reported. Results Created Date Observation Date Name Description Value Unit Range Abnormal Flag Note LastModifiedBy Organization Detail LastModifiedTime 01/08/2001/09/2024 LIPID PANEL cholesterol, total 186 mg/dL 100-19 9 Not Available [facility] ([facility]) [address] [facility] [address], [place], [address], 01/09/2024 08:31:25 01/08/2001/09/2024 LIPID PANEL triglyceride s 343 mg/dL 0-149 above high normal Not Available [facility] ([facility]) [address] [place], [address], 01/09/2024 08:31:25 01/08/2001/09/2024 LIPID PANEL HDL cholesterol 28 mg/dL >39 below low normal Not Available [facility] ([facility]) [address] [facility] [place], [address], 01/09/2024 08:31:25 01/08/20 24 01/09/2024 LIPID PANEL VLDL cholesterol juan pablo 58 mg/dL 5-40 above high normal Not Available [facility] ([facility]) [address] [facility] [place], [address], 01/09/2024 08:31:25 01/08/20 24 01/09/2024 LIPID PANEL LDL chol calc ([facility]) 100 mg/dL 0-99 above high normal Not Available [facility] ([facility]) [address] [facility] [place], [address], 01/09/2024 08:31:25 01/08/20 24 01/09/2024 COMP. METAB OLIC PANEL (14) glucose 79 mg/dL 70-99 Not Available [facility] ([facility]) [address] [facility] [place], [address], 01/09/2024 08:31:26 01/08/20 24 01/09/2024 COMP. METAB OLIC PANEL (14) BUN 7 mg/dL 6-24 Not Available [facility] ([facility]) [address] [place], [address], 01/09/2024 08:31:26 01/08/20 24 01/09/2024 COMP. METAB OLIC PANEL (14) creatinine 0.88 mg/dL 0.76-1 .27 Not Available [facility] ([facility]) [address] [facility] [place], [address], 01/09/2024 08:31:26 01/08/20 24 01/09/2024 COMP. METAB OLIC PANEL (14) eGFR 102 mL/mi n/1.7 3 >59 Not Available [facility] ([facility]) [address] [place], [address], 01/09/2024 08:31:26 01/08/20 24 01/09/2024 COMP. METAB OLIC PANEL (14) BUN/creatini ne ratio 8 9-20 below low normal Not Available [facility] ([facility]) [address] [facility] [place], [address], 01/09/2024 08:31:26 01/08/20 24 01/09/2024 COMP. METAB OLIC PANEL (14) sodium 139 mmol/ L 134-14 4 Not Available [facility] ([facility]) [address] [facility] [place], [address], 01/09/2024 08:31:26 01/08/20 24 01/09/2024 COMP. METAB OLIC PANEL (14) potassium 4.4 mmol/ L 3.5-5. 2 Not Available [facility] ([facility]) [address] [facility], [place], [address], 01/09/2024 08:31:26 01/08/20 24 01/09/2024 COMP. METAB OLIC PANEL (14) chloride 102 mmol/ L 96-106 Not Available [facility] ([facility]) [address] [facility] [place], [address], 01/09/2024 08:31:26 01/08/20 24 01/09/2024 COMP. METAB OLIC PANEL (14) carbon dioxide, total 24 mmol/ L 20-29 Not Available [facility] ([facility]) [address] [facility] [place], [address], 01/09/2024 08:31:26 01/08/20 24 01/09/2024 COMP. METAB OLIC PANEL (14) calcium 9.4 mg/dL 8.7-10 .2 Not Available [facility] ([facility]) [address] [facility] [place], [address], 01/09/2024 08:31:26 01/08/20 24 01/09/2024 COMP. METAB OLIC PANEL (14) protein, total 6.6 g/dL 6.0-8. 5 Not Available [facility] ([facility]) [address] [place], [address], 01/09/2024 08:31:26 01/08/20 24 01/09/2024 COMP. METAB OLIC PANEL (14) albumin 4.2 g/dL 3.8-4. 9 Not Available [facility] ([facility]) [address] [facility], [place], [address], 01/09/2024 08:31:26 01/08/20 24 01/09/2024 COMP. METAB OLIC PANEL (14) globulin, total 2.4 g/dL 1.5-4. 5 Not Available [facility] ([facility]) [address] [place], [address], 01/09/2024 08:31:26 01/08/20 24 01/09/2024 COMP. METAB OLIC PANEL (14) bilirubin, total 0.3 mg/dL 0.0-1. 2 Not Available [facility] ([facility]) [address] [place], [address], 01/09/2024 08:31:26 01/08/20 24 01/09/2024 COMP. METAB OLIC PANEL (14) alkaline phosphatase 85 IU/L 44-121 Not Available [facility]) [address] [place], [address], 01/09/2024 08:31:26 01/08/20 24 01/09/2024 COMP. METAB OLIC PANEL (14) AST (SGOT) 29 IU/L 0-40 Not Available [facility] ([facility]) [address] [place], [address], 01/09/2024 08:31:26 01/08/20 24 01/09/2024 COMP. METAB OLIC PANEL (14) ALT (SGPT) 57 IU/L 0-44 above high normal Not Available [facility] ([facility]) [address] [place], [address], 01/09/2024 08:31:26 01/08/20 24 01/09/2024 CBC WITH DIFFE RENTI AL/PL ATELE T WBC 12.4 x10e3 /uL 3.4-10 .8 above high normal Not Available [facility] ([facility]) [address] [facility], [place], [address], 01/09/2024 08:31:27 01/08/20 24 01/09/2024 CBC WITH DIFFE RENTI AL/PL ATELE T RBC 4.89 x10e6 /uL 4.14-5 .80 Not Available [facility] ([facility]) [address] [place], [address], 01/09/2024 08:31:27 01/08/20 24 01/09/2024 CBC WITH DIFFE RENTI AL/PL ATELE T hemoglobin 16.1 g/dL 13.0-1 7.7 Not Available [facility] ([facility]) [address] [place], [address], 01/09/2024 08:31:27 01/08/20 24 01/09/2024 CBC WITH DIFFE RENTI AL/PL ATELE T hematocrit 48.7 % 37.5-5 1.0 Not Available [facility] ([facility]) [address] [place], [address], 01/09/2024 08:31:27 01/08/20 24 01/09/2024 CBC WITH DIFFE RENTI AL/PL ATELE T MCV 100 fL 79-97 above high normal Not Available [facility] ([facility]) [address] [place], [address], 01/09/2024 08:31:27 01/08/20 24 01/09/2024 CBC WITH DIFFE RENTI AL/PL ATELE T MCH 32.9 pg 26.6-3 3.0 Not Available [facility] ([facility]) [address] [facility], [place], [address], 01/09/2024 08:31:27 01/08/20 24 01/09/2024 CBC WITH DIFFE RENTI AL/PL ATELE T MCHC 33.1 g/dL 31.5-3 5.7 Not Available [facility] ([facility]) [address] [facility], [place], [address], 01/09/2024 08:31:27 01/08/20 24 01/09/2024 CBC WITH DIFFE RENTI AL/PL ATELE T RDW 12.7 % 11.6-1 5.4 Not Available [facility] ([facility]) [address] [facility], [place], [address], 01/09/2024 08:31:27 01/08/20 24 01/09/2024 CBC WITH DIFFE RENTI AL/PL ATELE T platelets 228 x10e3 /uL 150-45 0 Not Available [facility] ([facility]) [address] [facility], [place], [address], 01/09/2024 08:31:27 01/08/20 24 01/09/2024 CBC WITH DIFFE RENTI AL/PL ATELE T neutrophils 53 % notest ab. Not Available [facility] ([facility]) [address] [facility], [place], [address], 01/09/2024 08:31:27 01/08/20 24 01/09/2024 CBC WITH DIFFE RENTI AL/PL ATELE T lymphs 40 % notest ab. Not Available [facility] ([facility]) [address] [facility], [place], [address], 01/09/2024 08:31:27 01/08/20 24 01/09/2024 CBC WITH DIFFE RENTI AL/PL ATELE T monocytes 5 % notest ab. Not Available [facility] ([facility]) [address] [facility], [place], [address], 01/09/2024 08:31:27 01/08/20 24 01/09/2024 CBC WITH DIFFE RENTI AL/PL ATELE T eos 2 % notest ab. Not Available [facility] ([facility]) [address] [facility], [place], [address], 01/09/2024 08:31:27 01/08/20 24 01/09/2024 CBC WITH DIFFE RENTI AL/PL ATELE T basos 0 % notest ab. Not Available [facility] ([facility]) [address] [facility], [place], [address], 01/09/2024 08:31:27 01/08/20 24 01/09/2024 CBC WITH DIFFE RENTI AL/PL ATELE T neutrophils (absolute) 6.5 x10e3 /uL 1.4-7. 0 Not Available [facility] ([facility]) [address] [facility], [place], [address], 01/09/2024 08:31:27 01/08/20 24 01/09/2024 CBC WITH DIFFE RENTI AL/PL ATELE T lymphs (absolute) 4.9 x10e3 /uL 0.7-3. 1 above high normal Not Available [facility] ([facility]) [address] [facility], [place], [address], 01/09/2024 08:31:27 01/08/20 24 01/09/2024 CBC WITH DIFFE RENTI AL/PL ATELE T monocytes(ab solute) 0.6 x10e3 /uL 0.1-0. 9 Not Available [facility] ([facility]) [address] [facility], [place], [address], 01/09/2024 08:31:27 01/08/20 24 01/09/2024 CBC WITH DIFFE RENTI AL/PL ATELE T eos (absolute) 0.2 x10e3 /uL 0.0-0. 4 Not Available [facility] ([facility]) [address] [place], [address], 01/09/2024 08:31:27 01/08/20 24 01/09/2024 CBC WITH DIFFE RENTI AL/PL ATELE T baso (absolute) 0.0 x10e3 /uL 0.0-0. 2 Not Available [facility] ([facility]) [address] [place], [address], 01/09/2024 08:31:27 01/08/20 24 01/09/2024 CBC WITH DIFFE RENTI AL/PL ATELE T immature granulocytes 0 % notest ab. Not Available [facility] ([facility]) [address] [place], [address], 01/09/2024 08:31:27 01/08/20 24 01/09/2024 CBC WITH DIFFE RENTI AL/PL ATELE T immature grans (abs) 0.0 x10e3 /uL 0.0-0. 1 Not Available [facility] ([facility]) [address] [place], [address], 01/09/2024 08:31:27 05/14/19 25 05/15/2024 LIPID PANEL cholesterol, total 185 mg/dL 100-19 9 Not Available [facility] ([facility]) [address] [place], [address], 05/15/2024 08:25:33 05/14/19 25 05/15/2024 LIPID PANEL triglyceride s 175 mg/dL 0-149 above high normal Not Available [facility] ([facility]) [address] [place], [address], 05/15/2024 08:25:33 05/14/19 25 05/15/2024 LIPID PANEL HDL cholesterol 33 mg/dL >39 below low normal Not Available [facility] ([facility]) [address] [facility] [place], [address], 05/15/2024 08:25:33 05/14/19 25 05/15/2024 LIPID PANEL VLDL cholesterol juan pablo 31 mg/dL 5-40 Not Available [facility] ([facility]) [address] [facility] [place], [address], 05/15/2024 08:25:33 05/14/19 25 05/15/2024 LIPID PANEL LDL chol calc ([facility]) 121 mg/dL 0-99 above high normal Not Available [facility] ([facility]) [address] [facility] [place], [address], 05/15/2024 08:25:33 05/14/19 25 05/15/2024 COMP. METAB OLIC PANEL (14) glucose 90 mg/dL 70-99 Not Available [facility] ([facility]) [address] [place], [address], 05/15/2024 08:25:34 05/14/19 25 05/15/2024 COMP. METAB OLIC PANEL (14) BUN 6 mg/dL 6-24 Not Available [facility] ([facility]) [address] [place], [address], 05/15/2024 08:25:34 05/14/19 25 05/15/2024 COMP. METAB OLIC PANEL (14) creatinine 0.74 mg/dL 0.76-1 .27 below low normal Not Available [facility] ([facility]) [address] [place], [address], 05/15/2024 08:25:34 05/14/19 25 05/15/2024 COMP. METAB OLIC PANEL (14) eGFR 107 mL/mi n/1.7 3 >59 Not Available [facility] ([facility]) [address] [place], [address], 05/15/2024 08:25:34 05/14/19 25 05/15/2024 COMP. METAB OLIC PANEL (14) BUN/creatini ne ratio 8 9-20 below low normal Not Available [facility] ([facility]) [address] [facility] [place], [address], 05/15/2024 08:25:34 05/14/19 25 05/15/2024 COMP. METAB OLIC PANEL (14) sodium 141 mmol/ L 134-14 4 Not Available [facility] ([facility]) [address] [facility] [place], [address], 05/15/2024 08:25:34 05/14/19 25 05/15/2024 COMP. METAB OLIC PANEL (14) potassium 3.7 mmol/ L 3.5-5. 2 Not Available [facility] ([facility]) [address] [facility], [place], [address], 05/15/2024 08:25:34 05/14/19 25 05/15/2024 COMP. METAB OLIC PANEL (14) chloride 102 mmol/ L 96-106 Not Available [facility] ([facility]) [address] [place], [address], 05/15/2024 08:25:34 05/14/19 25 05/15/2024 COMP. METAB OLIC PANEL (14) carbon dioxide, total 23 mmol/ L 20-29 Not Available [facility] ([facility]) [address] [place], [address], 05/15/2024 08:25:34 05/14/19 25 05/15/2024 COMP. METAB OLIC PANEL (14) calcium 9.4 mg/dL 8.7-10 .2 Not Available [facility] ([facility]) [address] [place], [address], 05/15/2024 08:25:34 05/14/19 25 05/15/2024 COMP. METAB OLIC PANEL (14) protein, total 6.6 g/dL 6.0-8. 5 Not Available [facility] ([facility]) [address] [facility] [place], [address], 05/15/2024 08:25:34 05/14/19 25 05/15/2024 COMP. METAB OLIC PANEL (14) albumin 4.5 g/dL 3.8-4. 9 Not Available [facility] ([facility]) [address] [facility], [place], [address], 05/15/2024 08:25:34 05/14/19 25 05/15/2024 COMP. METAB OLIC PANEL (14) globulin, total 2.1 g/dL 1.5-4. 5 Not Available [facility] ([facility]) [address] [facility] [place], [address], 05/15/2024 08:25:34 05/14/19 25 05/15/2024 COMP. METAB OLIC PANEL (14) bilirubin, total 0.5 mg/dL 0.0-1. 2 Not Available [facility] ([facility]) [address] [facility] [place], [address], 05/15/2024 08:25:34 05/14/19 25 05/15/2024 COMP. METAB OLIC PANEL (14) alkaline phosphatase 93 IU/L 44-121 Not Available [facility]) [address] [facility] [place], [address], 05/15/2024 08:25:34 05/14/19 25 05/15/2024 COMP. METAB OLIC PANEL (14) AST (SGOT) 18 IU/L 0-40 Not Available [facility] ([facility]) [address] [place], [address], 05/15/2024 08:25:34 05/14/19 25 05/15/2024 COMP. METAB OLIC PANEL (14) ALT (SGPT) 28 IU/L 0-44 Not Available [facility] ([facility]) [address] [facility], [place], [address], 05/15/2024 08:25:34 05/14/1905/15/2024 CBC WITH DIFFE RENTI AL/PL ATELE T WBC 12.7 x10e3 /uL 3.4-10 .8 above high normal Not Available [facility] ([facility]) [address] [facility], [place], [address], 05/15/2024 08:25:36 05/14/1905/15/2024 CBC WITH DIFFE RENTI AL/PL ATELE T RBC 4.88 x10e6 /uL 4.14-5 .80 Not Available [facility] ([facility]) [address] [facility], [place], [address], 05/15/2024 08:25:36 05/14/1905/15/2024 CBC WITH DIFFE RENTI AL/PL ATELE T hemoglobin 16.3 g/dL 13.0-1 7.7 Not Available [facility] ([facility]) [address] [facility], [place], [address], 05/15/2024 08:25:36 05/14/1905/15/2024 CBC WITH DIFFE RENTI AL/PL ATELE T hematocrit 47.3 % 37.5-5 1.0 Not Available [facility] ([facility]) [address] [facility], [place], [address], 05/15/2024 08:25:36 05/14/1905/15/2024 CBC WITH DIFFE RENTI AL/PL ATELE T MCV 97 fL 79-97 Not Available [facility] ([facility]) [address] [facility], [place], [address], 05/15/2024 08:25:36 05/14/19 25 05/15/2024 CBC WITH DIFFE RENTI AL/PL ATELE T MCH 33.4 pg 26.6-3 3.0 above high normal Not Available [facility] ([facility]) [address], [place], [address], 05/15/2024 08:25:36 05/14/1905/15/2024 CBC WITH DIFFE RENTI AL/PL ATELE T MCHC 34.5 g/dL 31.5-3 5.7 Not Available [facility] ([facility]) [address] [facility], [place], [address], 05/15/2024 08:25:36 05/14/1905/15/2024 CBC WITH DIFFE RENTI AL/PL ATELE T RDW 13.0 % 11.6-1 5.4 Not Available [facility] ([facility]) [address] [facility], [place], [address], 05/15/2024 08:25:36 05/14/19 25 05/15/2024 CBC WITH DIFFE RENTI AL/PL ATELE T platelets 277 x10e3 /uL 150-45 0 Not Available [facility] ([facility]) [address] [facility], [place], [address], 05/15/2024 08:25:36 05/14/1905/15/2024 CBC WITH DIFFE RENTI AL/PL ATELE T neutrophils 50 % notest ab. Not Available [facility] ([facility]) [address] [facility], [place], [address], 05/15/2024 08:25:36 05/14/1905/15/2024 CBC WITH DIFFE RENTI AL/PL ATELE T lymphs 44 % notest ab. Not Available [facility] ([facility]) [address] [facility], [place], [address], 05/15/2024 08:25:36 05/14/1905/15/2024 CBC WITH DIFFE RENTI AL/PL ATELE T monocytes 5 % notest ab. Not Available [facility] ([facility]) [address] [facility], [place], [address], 05/15/2024 08:25:36 05/14/1905/15/2024 CBC WITH DIFFE RENTI AL/PL ATELE T eos 1 % notest ab. Not Available [facility] ([facility]) [address] [facility], [place], [address], 05/15/2024 08:25:36 05/14/1905/15/2024 CBC WITH DIFFE RENTI AL/PL ATELE T basos 0 % notest ab. Not Available [facility] ([facility]) [address] [facility], [place], [address], 05/15/2024 08:25:36 05/14/1905/15/2024 CBC WITH DIFFE RENTI AL/PL ATELE T neutrophils (absolute) 6.3 x10e3 /uL 1.4-7. 0 Not Available [facility] ([facility]) [address] [facility], [place], [address], 05/15/2024 08:25:36 05/14/1905/15/2024 CBC WITH DIFFE RENTI AL/PL ATELE T lymphs (absolute) 5.5 x10e3 /uL 0.7-3. 1 above high normal Not Available [facility] ([facility]) [address] [facility], [place], [address], 05/15/2024 08:25:36 05/14/1905/15/2024 CBC WITH DIFFE RENTI AL/PL ATELE T monocytes(ab solute) 0.7 x10e3 /uL 0.1-0. 9 Not Available [facility] ([facility]) [address] [place], [address], 05/15/2024 08:25:36 05/14/1905/15/2024 CBC WITH DIFFE RENTI AL/PL ATELE T eos (absolute) 0.1 x10e3 /uL 0.0-0. 4 Not Available [facility] ([facility]) [address] [facility], [place], [address], 05/15/2024 08:25:36 05/14/1905/15/2024 CBC WITH DIFFE RENTI AL/PL ATELE T baso (absolute) 0.0 x10e3 /uL 0.0-0. 2 Not Available [facility] ([facility]) [address] [place], [address], 05/15/2024 08:25:36 05/14/19 25 05/15/2024 CBC WITH DIFFE RENTI AL/PL ATELE T immature granulocytes 0 % notest ab. Not Available [facility] ([facility]) [address] [facility], [place], [address], 05/15/2024 08:25:36 05/14/19 25 05/15/2024 CBC WITH DIFFE RENTI AL/PL ATELE T immature grans (abs) 0.0 x10e3 /uL 0.0-0. 1 Not Available [facility] ([facility]) [address] [facility], [place], [address], 05/15/2024 08:25:36 01/01/20 24 01/01/2024 XR, lumbo sacra l spine , 4 or more view No observ ation record ed. [facility] [address] [place], [address], 01/08/2024 12:54:52 01/01/20 24 01/01/2024 XR, cervi juan pablo spine , 4 or 5 view No observ ation record ed. [facility] [address] [place], [address], 01/08/2024 12:58:03 01/01/20 24 01/01/2024 XR, thora cic spine , 4 or more view No observ ation record ed. [facility] [address] [place], [address], 01/08/2024 13:01:34 Result Notes None recorded. Problems Name Problem SNOMED Code Status Onset Date Resolution Date Notes Provider Name and Address Organization Details Recorded Time Hyperlipidemi a 82114935 Active 2023 Ashwin Beebe [place] null, [place] [facility] 4 16:36:45 Chronic obstructive pulmonary disease 58928235 Active 2023 Ashwin Beebe [place], [place] [facility] 4 16:36:46 Insomnia 359125772 Active 2023 Maxim Almaraz MD Attn: Lyleelsy g,[address] [facility], [place], [address], [place] [facility] 4 21:24:13 Nicotine dependence 32337395 Active 2023 Maxim Almaraz MD Attn: Lyleelsy g,[address] [facility], [place], [address], [place] [facility] 4 21:24:38 SARS-CoV-2 vaccination declined 0863808029 Active 2024 Maxim Almaraz MD Attn: Accountin g,[address] [facility], [place], [address], [place] [facility] 5 22:24:03 Pneumococcal vaccination declined 765428813 Active 2024 Maxim Almaraz MD Attn: Ela g,[address] [facility], [place], [address], [place] [facility] 5 22:24:05 Problem Notes None recorded. Procedures Surgical History None recorded. Imaging Results Imaging Date Name Status [facility] Details LastModified Time 01/01/2024 XR, lumbosacral spine, [address] [facility] [address] [place], [address], 01/08/2024 12:54:52 01/01/2024 XR, cervical spine, [address] [facility] [address] [place], [address], 01/08/2024 12:58:03 01/01/2024 XR, thoracic spine, [address] [facility] [facility] [address] [place], [address], 01/08/2024 13:01:34 Procedure Notes None recorded. Medical Equipment None Reported. Medications Name Sig Start Date Stop Date Status Note LastModified by Organization Details LastModified Time nicotine 14 mg/24 hr daily transderm al patch APPLY 1 PATCH TOPICALL Y ONCE DAILY active Not Available Not Available No t Available triamcino lone acetonide 0.5 % topical ointment APPLY TOPICALL Y TO THE AFFECTED AREA TWICE DAILY FOR 7 DAYS active Not Available Not Available No t Available hydrocodo ne 10 mg-acetam inophen 325 mg tablet TAKE 1 TABLET BY MOUTH FOUR TIMES DAILY NEEDED 01/07 completed Not Available Not Available Not Available methocarb ольга 750 mg tablet TAKE 1 TABLET BY MOUTH THREE TIMES DAILY NEEDED active Not Available Not Available No t Available hydrocodo ne 7.5 mg-acetam inophen 325 mg tablet TAKE 1 TABLET BY MOUTH THREE TIMES DAILY NEEDED active Not Available Not Available No t Available nicotine 21 mg/24 hr daily transderm al patch APPLY 1 PATCH TOPICALL Y ONCE DAILY active Not Available Not Available No t Available acetamino phen 300 mg-codein e 60 mg tablet TAKE 1 TABLET BY MOUTH THREE TIMES DAILY NEEDED active Not Available Not Available No t Available zolpidem 10 mg tablet TAKE 1 TABLET BY MOUTH ONCE DAILY AT BEDTIME active see pt case per Dr Almaraz do not refill this medicati on anymore. Not Available Not Available Not Available albuterol sulfate HFA 90 mcg/actua tion aerosol inhaler INHALE 2 PUFFS BY MOUTH EVERY 4 HOURS active Not Available Not Available No t Available nicotine 7 mg/24 hr daily transderm al patch Apply 1 patch every day by transder mal route. active Not Available Not Available No t Available escitalop analisa 10 mg tablet TAKE 1 TABLET BY MOUTH ONCE DAILY active Not Available Not Available No t Available rosuvasta tin 20 mg tablet TAKE 1 TABLET BY MOUTH ONCE DAILY active Not Available Not Available No t Available tadalafil 20 mg tablet TAKE 1 TABLET BY MOUTH 60 MINUTES BEFORE SEXUAL ACTIVITY . DO NOT EXCEED 1 PILL IN 24 HOURS active Not Available Not Available No t Available Vitals Date Recorded Body height Body mass index (BMI) Body weight Heart rate Oxygen saturation Oxygen saturation in Arterial blood by Pulse oximetry Systolic blood pressure Diastolic blood pressure Provider Name and Address Organization Details Last Updated DateTime 4 180.34 cm 30.1 kg/m2 27616.7 8 g 63 /min 96 % 96 % 142 mm[Hg] 80 mm[Hg] Sun García [facility] 4 15:29:43 Date Recorded Body height Body mass index (BMI) Body weight Heart rate Oxygen saturation Oxygen saturation in Arterial blood by Pulse oximetry Systolic blood pressure Diastolic blood pressure Provider Name and Address Organization Details Last Updated DateTime 5 180.34 cm 28 kg/m2 00495.4 3 g 86 /min 97 % 97 % 126 mm[Hg] 62 mm[Hg] Miryam Bravo [facility] 5 16:24:10 Social History Question Answer Notes LastModified by Organizat ion Details LastModified Time Tobacco Smoking Status Current Every Day Smoker Sun García MA [facility] 01/08/2024 15:19:49 Do You Have An Advance Directive? No Information not available 01/08/2024 What Is Your Level Of Alcohol Consumption? None Information not available 01/08/2024 Are You Blind Or Do You Have Difficulty Seeing? No Information not available 01/08/2024 What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
--- OUTSIDE RECORDS SUMMARY | 2024-06-16 17:38 | XMS_ITS | Patient Health Summary ---
Author Organization [facility] Address [address] [facility] [place] [address] Care Team Providers Care Comb Capper Name Role Phone Unavailable Primary Care Provider Unavailabl e Note from [facility],non-owned Affiliates and Associated Physician Practices is amultiple site organization consisting of ambulatory clinics and hospital sitesin [place], [place], [place] and [place]. This disclosure is being madepursuant to the Care Everywhere program and may not contain all information available regarding this patient. Last updated 18.[facility] Social History Tobacco Use Types Packs/Day Years Used Date Smoking Tobacco: Never Assessed Sex and Gender Information Value Date Recorded Sex Assigned at Not on file Gender Identity Not on file Sexual Orientation Not on file
--- OUTSIDE RECORDS SUMMARY | 2024-06-16 17:38 | XMS_ITS | Clinical Summary ---
Author Organization [facility] Address [address] [place] [address] Care Team Providers Care Police Service Technician Name Role Phone Unavailable Primary Care Provider Unavailabl e Source Comments [facility],non-owned Affiliates and Associated Physician Practices is amultiple site organization consisting of ambulatory clinics and hospital sitesin [place], [place], [place] and [place]. This disclosure is being madepursuant to the Care Everywhere program and may not contain all information available regarding this patient. Last updated 18.[facility] [employer] Social History Tobacco Use Types Packs/Day Years Used Date Smoking Tobacco: Never Assessed Sex and Gender Information Value Date Recorded Sex Assigned at Not on file Gender Identity Not on file Sexual Orientation Not on file Plan of Treatment Health Maintenance Due Date Last Done Comments COLOGUARD (AGES 45-75) - COL ON CA SCREENING 1969 COLON MONITORING 1969 COLONOSCOPY - COLON CA SCREENING 1969 CT COLONOGRAPHY - COLON CA SCREENING 1969 Colorectal Cancer Screening 1969 FIT - COLON CA SCREENING 1969 FLEX SIG - COLON CA SCREENING 1969 LIPID TESTING 1969 HIV SCREENING 02/07/1984 HEPATITIS C SCREENING 02/02/1987 DTAP/TDAP/TD VACCINES (1 - Tdap) 02/07/1988 HEPATITIS B VACCINE (1 of 3 - 19+ 3-dose series) 02/07/1988 PNEUMOCOCCAL VACCINE 50+ (1 of 1 - PCV) 2019 ZOSTER VACCINE (1 of 2) 2019 COVID-19 VACCINE ( - 2023-2 5 season) 2023 INFLUENZA VACCINE (#1) 2023 DEPRESSION SCREENING 04/30/2024 HIB VACCINE Aged Out No longer eligi ble based on patient's age to complete this topic HPV VACCINE Aged Out No longer eligi ble based on patient's age to complete this topic MENINGOCOCCAL (Group B) VACCINE Aged Out No longer eligible based on patient's age to complete this topic MENINGOCOCCAL VACCINE Aged Out No roosevelt randy eligible based on patient's age to complete this topic PNEUMOCOCCAL VACCINE Aged Out No long er eligible based on patient's age to complete this topic
--- OUTSIDE RECORDS SUMMARY | 2024-06-16 17:38 | XMS_ITS | Clinical Summary ---
Author Organization [facility] Address [address] [place] [address] Care Team Providers Care Lockstitch Waistband Setter Name Role Phone Non-Staff, Provider Primary Care Provider Unavai lable Allergies No known active allergies Medications rosuvastatin 10 MG tablet Take 10 mg by mouth nightly at bedtime. Active aspirin EC (ASPIRIN EC) 81 MG tablet Take 81 mg by mouth daily. Active HYDROcodone-kiki taminophen 10-325 MG tablet Take 1-2 tablets by mouth every 4 (four) hours as needed for Pain. Active Family History Medical History Relation Comments Heart Disease Father Cancer Mother Relation Status Comments Father Mother Sister Other lupus Social History Tobacco Use Types Packs/Day Years Used Date Smoking Tobacco: Every Day Cigarettes Smokeless Tobacco: Never Tobacco Cessation:Counseling Given: Yes Comments:Reviewed benefits of smoking cessation and risks of smoking, recommended he quit.. 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 Not on file Not on file N ot on file Last Filed Vital Signs Vital Sign Reading Time Taken Comments Blood Pressure 124/72 02/18/2021 1:55 PM CDT Pulse 69 02/18/2021 1:55 PM CDT Temperature 36.9 C (98.5 F) 02/18/2021 1:55 PM CDT Respiratory Rate 18 02/18/2021 1:55 PM CDT Oxygen Saturation 100% 02/18/2021 1:55 PM CDT Inhaled Oxygen Concentration - - Weight 89.1 kg (196 lb 6.4 oz) 02/18/2021 1:55 P M CDT Height 180.3 cm (5' 11 ) 02/18/2021 1:55 PM CDT Body Mass Index 27.39 02/18/2021 1:55 PM CDT Plan of Treatment Health Maintenance Due Date Last Done Comments Colorectal Cancer Screening Colonoscopy (10 Years) 1969 Annual Physical 02/07/1972 Pneumococcal Vaccine: Pediat rics (0 to 5 Years) and At-Risk Patients (6 to 64 Years) (1 of 2 - PCV) 1975 Hepatitis C 1987 DTaP, Tdap and Td Vaccines ( 1 - Tdap) 02/07/1988 Hepatitis B Vaccines (1 of 3 - 19+ 3-dose series) 02/07/1988 Zoster Vaccines (1 of 2) 2019 COVID-19 Vaccine ( - 2023-2 5 season) 2023 Influenza Adult (#1) 2024 Meningococcal B Vaccine Aged Out No l onger eligible based on patient's age to complete this topic Meningococcal Vaccine Aged Out No roosevelt randy eligible based on patient's age to complete this topic RSV Immunizations Under 20 Months Aged Out No longer eligible based on patient's age to complete this topic Insurance [facility] Care Teams Lockstitch Waistband Setter Relationship Specialty Start Date End Date Non-Staff, Provider PCP - General 02/18/21
--- OUTSIDE RECORDS SUMMARY | 2024-06-16 17:38 | XMS_ITS | Clinical Summary ---
Author Organization [facility] Address [address] [place] [address] Care Team Providers Care Dish Network Installer Name Role Phone Don Wang MD Primary Care Provider Allergies No known active allergies Medications rosuvastatin (CRESTOR) 20 mg tablet 06/19/2019 Active HYDROcodone-kiki taminophen (NORCO) 10-325 mg Tablet TAKE 1-2 TABLETS EVERY 4-6 HOURS NEEDED 06/27/2019 Active Active Problems Problem Noted Date Diagnosed Date Erythrocytosis 06/30/2019 Leukocytosis (leucocytosis) 06/30/2019 Family History Medical History Relation Name Comments Heart Disease Father Cancer Mother SLE Sister Relation Name Status Comments Brother Father Mother Alive Sister Alive Social History Tobacco Use Types Packs/Day Years Used Date Smoking Tobacco: Some Days Cigarettes 1 25 Smokeless Tobacco: Never Tobacco Cessation:Ready to Q uit: No Alcohol Use Standard Drinks/Week Comments Yes 0 (1 standard drink = 0.6 oz pur e alcohol) Sex and Gender Information Value Date Recorded Sex Assigned at Not on file 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 Sex 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 Gender Identity Not on file Sexual Orientation Not on file Last Filed Vital Signs Vital Sign Reading Time Taken Comments Blood Pressure 111/64 07/14/2019 9:45 AM CDT Pulse 79 07/14/2019 9:45 AM CDT Temperature 36.6 C (97.9 F) 07/14/2019 9:45 AM CDT Respiratory Rate - - Oxygen Saturation 98% 07/14/2019 9:45 AM CDT Inhaled Oxygen Concentration - - Weight 85.7 kg (188 lb 14.4 oz) 07/14/2019 9:45 AM CDT Height 180.3 cm (5' 11 ) 07/14/2019 9:45 AM CDT Body Mass Index 26.35 07/14/2019 9:45 AM CDT Plan of Treatment Health Maintenance Due Date Last Done Comments DTAP/TDAP/TD VACCINES (1 - Tdap) 02/07/1988 HEPATITIS B VACCINES (1 of 3 - 19+ 3-dose series) 02/07/1988 COLORECTAL SCREENING 2014 Colorectal Cancer Screening 2014 FIT-DNA Q 3 years 2014 FIT/FOBT Q 1 year 2014 Flex Sig/CT Colonography Q 5 years 2014 ZOSTER VACCINE (1 of 2) 2019 INFLUENZA VACCINE (#1) 2023 PNEUMOCOCCAL VACCINE 0-64 YEARS Aged Out No longer eligible based on patient's age to complete this topic Care Teams Dish Network Installer Relationship Specialty Start Date End Date Don Wang MD [address] [place] [address] PCP - General Family Practice 05/02/19
== END 2024-06-16 14:42 | disposition home or self-care (01) ==
PROVIDERS: PCP Family Medicine
DX: M16.0 Bilateral primary osteoarthritis of hip (principal)
CPT/HCPCS: 72170; 73521

== ENCOUNTER 2024-08-08 09:41 | Outpatient (CLI) | payer OTHER, SELFPAY ==
--- NOTE | ~2024-08-08 | MR_ITS ---
MRI of the lumbar spine Clinical History: Radiculopathy Technique: Axial T2-weighted images, and sagittal T1-weighted, T2-weighted, and and T2 fat-sat images were acquired. COMPARISON: 09/20/2021 Findings: No fracture. Stable mild grade 1 retrolisthesis of L5 over S1. Stable osseous alignment fro m prior exam. No suspicious bone marrow signal abnormality evident. At L1-L2, L2-L3, L3-L4, there is no disc bulge or herniation. Intervertebral discs maintain normal si gnal and position results. There is moderate facet arthropathy is a levels. No central canal stenosis or neural foraminal narrowing at these levels. At L4-L5, there is minimal disc desiccation with right paracentral to right foraminal disc bulge/prot rusion. There is mild facet arthropathy. No central canal stenosis. There is moderate right neural fo raminal narrowing. Left neural foramen preserved. At L5-S1, there is moderate degenerative disc narrowing. There is diffuse disc bulge with superimpose d central disc protrusion and mild to moderate facet arthropathy. No central canal stenosis. There is severe bilateral neural foraminal comprise. Paravertebral soft tissues are unremarkable. Impression: Advanced degenerative spondylosis at L5-S1, as above. Moderate right neural foraminal narrowing at L4-L5, as detailed above. Reviewed, dictated and finalized at location . Impression: Advanced degenerative spondylosis at L5-S1, as above. Moderate right neural foraminal narrowing at L4-L5, as detailed above.
--- OUTSIDE RECORDS SUMMARY | 2024-08-08 10:18 | XMS_ITS | Clinical Summary ---
Author Organization [facility] Address [address] [place] [address] Care Team Providers Care Transformer Inspector Name Role Phone Unavailable Primary Care Provider Unavailabl e Source Comments [facility],non-owned Affiliates and Associated Physician Practices is amultiple site organization consisting of ambulatory clinics and hospital sitesin [place], [place], [place] and [place]. This disclosure is being madepursuant to the Care Everywhere program and may not contain all information available regarding this patient. Last updated 18.[facility] Social History Tobacco Use Types Packs/Day Years [...] VACCINE ( - 2023-2 5 season) 2023 DEPRESSION SCREENING 04/30/2024 INFLUENZA VACCINE (Season Ended) 2024 HIB VACCINE Aged Out No longer eligi ble based on patient's age to complete this topic HPV VACCINE Aged Out No longer eligi ble based on patient's age to complete this topic MENINGOCOCCAL (Group B) VACC INE SHARED DECISION-MAKING Aged Out No longer eligibl e based on patient's age to complete this topic MENINGOCOCCAL GROUPS A/C/Y/W VACCINE Aged Out No longer eligible b ased on patient's age to complete this topic PNEUMOCOCCAL VACCINE Aged Out No long er eligible based on patient's age to complete this topic
--- OUTSIDE RECORDS SUMMARY | 2024-08-08 10:18 | XMS_ITS | Clinical Summary ---
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
--- OUTSIDE RECORDS SUMMARY | 2024-08-08 10:19 | XMS_ITS | Data Portability ---
Author Organization [place] [facility], Main Office Address [address] [place] [address] Care Team Providers Care Material Disposition Inspector Name Role Phone DOMONIQUE TROY Primary Care Provider DOMONIQUE TROY Referring Provider SOPHIA MEJIA Facilities Maintenance Technician Assessment No assessment recorded. Plan of Treatment Reminders Order Date Submit Date Provider Last Modified By Organization Details Last Modified Time Details Appointments None recorded. Lab PSA, serum or plasma 2022 023 [email or web address] Not available 3 12:12:15 testosteron e, free + total, serum 2022 023 [email or web address] Not available 3 12:08:02 BMP, serum or plasma 2022 023 [email or web address] Not available 3 12:10:07 lipid panel, serum 2022 023 [email or web address] Not available 3 12:06:28 hepatic function panel, serum 2022 023 [email or web address] Not available 3 12:07:24 CBC w/ auto diff 2022 023 [email or web address] Not available 3 12:56:50 Referral None recorded. Procedures None recorded. Surgeries None recorded. Imaging None recorded. Medication Orders hydrocodone 10 mg-acetamin ophen 325 mg tablet 2022 023 [facility] #[id number], [address], [place], [id number], 3 12:24:18 ipratropium 0.5 mg-albutero l 3 mg (2.5 mg base)/3 mL nebulizatio n soln 2022 023 [facility] #[id number], [address], [place], [id number], 12:20:36 tadalafil 20 mg tablet 2022 023 [facility] #[id number], [address], [place], [id number], 09:37:11 Patient TargetsNo targets recorded. Patient InstructionsNo instructions recorded. Reason for Referral None Reported. Results Created Date Observation Date Name Description Value Unit Range Abnormal Flag Note LastModifiedBy Organization Detail LastModifiedTime 07/04/1907/03/2022 CBC/C OMPLE TE BLD COUNT W/DIF F white blood cells 12.6 x10'3 /uL 4.2-10 .8 high Not Available [facility] (Lab) [address] [place], [address], 07/03/2022 19:50:28 07/04/19 23 07/03/2022 CBC/C OMPLE TE BLD COUNT W/DIF F red blood cells 5.08 x10'6 /uL 4.10-5 .80 Not Available [facility] (Lab) [address] [place], [address], 07/03/2022 19:50:28 07/04/19 23 07/03/2022 CBC/C OMPLE TE BLD COUNT W/DIF F hemoglobin 16.5 g/dL 13.2-1 7.0 Not Available [facility] (Lab) [address] [place], [address], 07/03/2022 19:50:28 07/04/19 23 07/03/2022 CBC/C OMPLE TE BLD COUNT W/DIF F hematocrit 48.6 % 39.3-5 0.0 Not Available [facility] (Lab) [address] [place], [address], 07/03/2022 19:50:28 07/04/19 23 07/03/2022 CBC/C OMPLE TE BLD COUNT W/DIF F mean red cell volume 95.7 fL 80.0-9 7.0 Not Available [facility] (Lab) [address] [place], [address], 07/03/2022 19:50:28 07/04/19 23 07/03/2022 CBC/C OMPLE TE BLD COUNT W/DIF F mean red cell hemoglobin 32.5 pg 27.0-3 3.0 Not Available [facility] (Lab) [address] [place], [address], 07/03/2022 19:50:28 07/04/19 23 07/03/2022 CBC/C OMPLE TE BLD COUNT W/DIF F mean RBC HGB concentratio n 34.0 g/dL 31.0-3 6.0 Not Available [facility] (Lab) [address] [place], [address], 07/03/2022 19:50:28 07/04/19 23 07/03/2022 CBC/C OMPLE TE BLD COUNT W/DIF F red cell distribution width 13.0 % 11.8-1 5.5 Not Available [facility] (Lab) [address] [place], [address], 07/03/2022 19:50:28 07/04/19 23 07/03/2022 CBC/C OMPLE TE BLD COUNT W/DIF F platelets 232 x10'3 /uL 150-40 0 Not Available [facility] (Lab) [address] [place], [address], 07/03/2022 19:50:28 07/04/19 23 07/03/2022 CBC/C OMPLE TE BLD COUNT W/DIF F mean platelet volume 10.4 fL 9.0-12 .4 Not Available [facility] (Lab) [address] [place], [address], 07/03/2022 19:50:28 07/04/19 23 07/03/2022 CBC/C OMPLE TE BLD COUNT W/DIF F neutrophils 64.6 % 39.0-7 2.0 Not Available [facility] (Lab) [address] [place], [address], 07/03/2022 19:50:28 07/04/1907/03/2022 CBC/C OMPLE TE BLD COUNT W/DIF F lymphocytes 28.3 % 16.0-4 7.0 Not Available [facility] (Lab) [address] [place], [address], 07/03/2022 19:50:28 07/04/19 23 07/03/2022 CBC/C OMPLE TE BLD COUNT W/DIF F monocytes 5.0 % 5.0-12 .0 Not Available [facility] (Lab) [address] [place], [address], 07/03/2022 19:50:28 07/04/1907/03/2022 CBC/C OMPLE TE BLD COUNT W/DIF F eosinophils 1.3 % 1.0-7. 0 Not Available [facility] (Lab) [address] [place], [address], 07/03/2022 19:50:28 07/04/19 23 07/03/2022 CBC/C OMPLE TE BLD COUNT W/DIF F basophils 0.3 % 0.0-2. 0 Not Available [facility] (Lab) [address] [place], [address], 07/03/2022 19:50:28 07/04/19 23 07/03/2022 CBC/C OMPLE TE BLD COUNT W/DIF F immature granulocytes 0.5 % 0.00-0 .50 Not Available [facility] (Lab) [address] [place], [address], 07/03/2022 19:50:28 07/04/19 23 07/03/2022 CBC/C OMPLE TE BLD COUNT W/DIF F neutrophils, absolute count 8.17 x10'3 /uL 1.5-8. 0 high Not Available [facility] (Lab) [address] [place], [address], 07/03/2022 19:50:28 07/04/19 23 07/03/2022 CBC/C OMPLE TE BLD COUNT W/DIF F lymphocytes, absolute count 3.58 x10'3 /uL 1.07-3 .43 high Not Available [facility] (Lab) [address] [place], [address], 07/03/2022 19:50:28 07/04/1907/03/2022 CBC/C OMPLE TE BLD COUNT W/DIF F monocytes, absolute count 0.63 x10'3 /uL 0.29-0 .99 Not Available [facility] (Lab) [address] [place], [address], 07/03/2022 19:50:28 07/04/19 23 07/03/2022 CBC/C OMPLE TE BLD COUNT W/DIF F eosinophils, absolute count 0.16 x10'3 /uL 0.02-0 .53 Not Available [facility] (Lab) [address] [place], [address], 07/03/2022 19:50:28 07/04/19 23 07/03/2022 CBC/C OMPLE TE BLD COUNT W/DIF F basophils, absolute count 0.04 x10'3 /uL 0.01-0 .08 Not Available [facility] (Lab) [address] [place], [address], 07/03/2022 19:50:28 07/04/19 23 07/03/2022 CBC/C OMPLE TE BLD COUNT W/DIF F immature granulocytes ,absolute 0.06 x10'3 /uL 0.00-0 .05 high Not Available [facility] (Lab) [address] [place], [address], 07/03/2022 19:50:28 07/04/19 23 07/03/2022 CBC/C OMPLE TE BLD COUNT W/DIF F nucleated red blood cells 0.0 % -0 Not Available [facility] (Lab) [address] [place], [address], 07/03/2022 19:50:28 07/04/19 23 07/03/2022 CBC/C OMPLE TE BLD COUNT W/DIF F NRBC# 0.00 x10'3 /uL Not Available [facility] (Lab) [address] [place], [address], 07/03/2022 19:50:28 07/04/19 23 07/03/2022 BASIC METAB OLIC PANEL sodium 137 mmol/ L 137-14 5 Not Available [facility] (Lab) [address] [place], [address], 07/03/2022 21:22:22 07/04/19 23 07/03/2022 BASIC METAB OLIC PANEL potassium 4.0 mmol/ L 3.5-5. 1 Not Available [facility] (Lab) [address] [place], [address], 07/03/2022 21:22:22 07/04/19 23 07/03/2022 BASIC METAB OLIC PANEL chloride 107 mmol/ L 98-107 Not Available [facility] (Lab) [address] [place], [address], 07/03/2022 21:22:22 07/04/19 23 07/03/2022 BASIC METAB OLIC PANEL carbon dioxide 19 mmol/ L 22-30 low Not Available [facility] (Lab) [address] [place], [address], 07/03/2022 21:22:22 07/04/19 23 07/03/2022 BASIC METAB OLIC PANEL anion gap 15.0 mmol/ L 14-22 Not Available [facility] (Lab) [address] [place], [address], 07/03/2022 21:22:22 07/04/19 23 07/03/2022 BASIC METAB OLIC PANEL glucose 116 mg/dL 70-99 high Not Available [facility] (Lab) [address] [place], [address], 07/03/2022 21:22:22 07/04/19 23 07/03/2022 BASIC METAB OLIC PANEL BUN 11 mg/dL 8-19 Not Available [facility] (Lab) [address] [place], [address], 07/03/2022 21:22:22 07/04/19 23 07/03/2022 BASIC METAB OLIC PANEL creatinine 0.69 mg/dL 0.66-1 .25 Not Available [facility] (Lab) [address] [place], [address], 07/03/2022 21:22:22 07/04/19 23 07/03/2022 BASIC METAB OLIC PANEL GFR >60 Refer ence Range : Stafford ge GFR Healt hy Adult : >60 [...] calcu lator is avail able on the [facility] websi te: [email or web address] :[email or web address] [email or web address] s/kdo qi/gf r_cal culat or Not Available [facility] (Lab) [address] [place], [address], 07/03/2022 21:22:22 07/04/19 23 07/03/2022 BASIC METAB OLIC PANEL calcium 9.2 mg/dL 8.4-10 .2 Not Available [facility] (Lab) [address] [place], [address], 07/03/2022 21:22:22 07/04/19 23 07/03/2022 LIPID PANEL cholesterol 116 mg/dL 140-19 9 low NIH MEL NSUS RECOM MENDA TION FOR ELIOT STERO L: ADULT CHILD LOW RISK: <200 <170 BORDE RLINE : <200- 239 ----- HIGH RISK: >240 >200 Not Available [facility] (Lab) [address] [place], [address], 07/03/2022 21:22:28 07/04/19 23 07/03/2022 LIPID PANEL triglyceride s 162 mg/dL 0-150 high NIH MEL NSUS REPOR T RECOM MENDA TION FOR TRIGL YCERI ARIEL: ADULT CHILD LOW RISK: <150 ----- BODER LINE: 150-1 99 ----- HIGH RISK: >200 ----- Not Available [facility] (Lab) [address] [place], [address], 07/03/2022 21:22:28 07/04/19 23 07/03/2022 LIPID PANEL HDL cholesterol 35 mg/dL 40- low Not Available [facility] (Lab) [address] [place], [address], 07/03/2022 21:22:28 07/04/19 23 07/03/2022 LIPID PANEL [...] WILL NOT BE REPOR BRANDI. Not Available [facility] (Lab) [address] [place], [address], 07/03/2022 21:22:28 07/04/19 23 07/03/2022 HEPAT IC/LI FREDERICK PANEL alkaline phosphatase 76 U/L 38-126 Not Available [facility] (Lab) [address] [place], [address], 07/03/2022 21:22:29 07/04/19 23 07/03/2022 HEPAT IC/LI FREDERICK PANEL alanine aminotransfe rase 45 U/L 0-50 Not Available [facility] (Lab) [address] [place], [address], 07/03/2022 21:22:29 07/04/19 23 07/03/2022 HEPAT IC/LI FREDERICK PANEL aspartate aminotransfe rase 33 U/L 15-46 Not Available [facility] (Lab) [address] [place], [address], 07/03/2022 21:22:29 07/04/19 23 07/03/2022 HEPAT IC/LI FREDERICK PANEL bilirubin, total 0.60 mg/dL 0.20-1 .30 Not Available [facility] (Lab) [address] [place], [address], 07/03/2022 21:22:29 07/04/19 23 07/03/2022 HEPAT IC/LI FREDERICK PANEL bilirubin, conjugated (direct) 0.00 mg/dL 0.00-0 .30 Not Available [facility] (Lab) [address] [place], [address], 07/03/2022 21:22:29 07/04/19 23 07/03/2022 HEPAT IC/LI FREDERICK PANEL biliurubin,u ncong. (indirect) 0.20 mg/dL 0.00-1 .1 Not Available [facility] (Lab) [address] [place], [address], 07/03/2022 21:22:29 07/04/19 23 07/03/2022 HEPAT IC/LI FREDERICK PANEL total protein 7.0 g/dL 6.3-8. 2 Not Available [facility] (Lab) [address] [place], [address], 07/03/2022 21:22:29 07/04/19 23 07/03/2022 HEPAT IC/LI FREDERICK PANEL albumin 4.4 g/dL 3.4-5. 0 Not Available [facility] (Lab) [address] [place], [address], 07/03/2022 21:22:29 07/04/19 23 07/03/2022 HEPAT IC/LI FREDERICK PANEL globulin 2.6 g/dL 2.6-4. 2 Not Available [facility] (Lab) [address] [place], [address], 07/03/2022 21:22:29 07/04/19 23 07/03/2022 HEPAT IC/LI FREDERICK PANEL A/G ratio 1.7 ratio 1.0-2. 0 Not Available [facility] (Lab) [address] [place], [address], 07/03/2022 21:22:29 07/04/19 23 07/03/2022 PSA SCREE [...] . JCEM 2017, 102;1 161-1 173. PMID: 56522 103. Not Available [facility] (Lab) [address] [place], [address], 07/14/2022 12:12:01 07/04/19 23 07/14/2022 TESTO STERO NE, FREE+ TOTAL LC/MS testosterone , free 5.71 NG/dL 5.00-2 1.00 Not Available [facility] (Lab) [address] [place], [address], 07/14/2022 12:12:01 07/04/19 23 07/14/2022 TESTO STERO NE, FREE+ TOTAL LC/MS % free testosterone 2.15 % 1.50-4 .20 Perfo rmed at: [facility] [place] [address] [facility] , [place] [address] Lab Direc tor: Renu taylor MD, Phone : [phone] Not Available [facility] (Lab) [address] [place], [address], 07/14/2022 12:12:01 06/16/19 25 06/16/2024 imagi ng/di alvinoos tic resul t No observ ation record ed. [facility] [address], [place], [address], 06/16/2024 17:04:52 Result Notes None recorded. Problems Name Problem SNOMED Code Status Onset Date Resolution Date Notes Provider Name and Address Organization Details Recorded Time Open wound of hand 501286950 Active 2021 Not Available [facility] 3 14:48:27 Chronic obstructiv e pulmonary disease 61437588 Active 2021 Not Available [facility] 3 14:48:27 Hand and wrist extensor tendon rupture 260594330 Active 2021 Not Available [facility] 3 14:48:28 Injury of muscle and tendon at forearm level 297172858 Active 2021 Not Available [facility] 3 14:48:28 Laceration of hand 965022103 Active 2021 Not Available [facility] 3 14:48:28 Scoliosis deformity of spine 482292704 Active 2021 Not Available [facility] 3 14:48:28 Pain in right hand 3392466946157 09 Active 2021 Not Available [facility] 3 14:48:28 Osteoarthr itis 686383193 Active 2021 Not Available [facility] 3 14:48:28 Hyperlipid emia 62759364 Active 2021 Not Available [facility] 3 14:48:28 Degenerati on of interverte bral disc 99054834 Active 2021 Not Available [facility] 3 14:48:28 Erectile dysfunctio n 201285935 Active 2022 Domonique Troy MD [address] [facility], [address], [place], [address] , [facility] [place] [facility] 3 09:29:29 Insomnia 940628398 Active 2022 Domonique Troy MD [address], [facility] [address], [place], [address] , [facility] Organizer [facility] 3 17:43:00 Problem Notes None recorded. Procedures Surgical History Date Name Laterality Status Provider Name and Address Organization Details Recorded Time 2 colonoscopy completed Domonique Troy MD [address], [address], [place], [address], [facility] [place] [facility] 07/06/2022 10:59:47 Imaging Results Imaging Date Name Status LastModified by Organiz ation Details LastModified Time 06/16/2024 imaging/diagn ostic result active [place] [address], [place], [address], 06/16/2024 17:04:52 Procedure Notes None recorded. Medical [...] Date Recorded Body mass index (BMI) Body height Oxygen saturation Oxygen saturation in Arterial blood by Pulse oximetry Heart rate Body temperature Body weight Systolic blood pressure Diastolic blood pressure Provider Name and Address Organization Details Last Updated DateTime 2 27.8 kg/m2 180.34 cm 96 % 96 % 81 /min 98 [degF] 98165.8 8 g 121 mm[Hg] 72 mm[Hg] Not Available [facility] 3 14:47:15 Date Recorded Body mass index (BMI) Body height Pain severity - 0-10 verbal numeric rating [Score] - Reported Body weight Provider Name and Address Organization Details Last Updated DateTime 06/13/2022 27.6 kg/m2 180.34 cm 1 78080.29 g Not Available [facility] 06/28/2022 14:47:18 Date Recorded Body height Body mass index (BMI) Body weight Body temperature Heart rate Oxygen saturation Oxygen saturation in Arterial blood by Pulse oximetry Systolic blood pressure Diastolic blood pressure Provider Name and Address Organization Details Last Updated DateTime 3 180.34 cm 28.2 kg/m2 42100.6 6 g 97.9 [degF] 80 /min 98 % 98 % 134 mm[Hg] 80 mm[Hg] Aliyah Latham MA [place] - [facility] 3 09:18:00 Date Recorded Body height Body mass index (BMI) Body weight Body temperature Heart rate Oxygen saturation Oxygen saturation in Arterial blood by Pulse oximetry Systolic blood pressure Diastolic blood pressure Provider Name and Address Organization Details Last Updated DateTime 3 180.34 cm 29.3 kg/m2 92496.4 g 97.7 [degF] 76 /min 97 % 97 % 124 mm[Hg] 76 mm[Hg] Jens Howard RN [facility] Organizer [facility] 3 12:12:22 Social History Question Answer Notes LastModified by [employer] Details LastModified Time Tobacco Smoking Status Current Every Day Smoker 2 ppd Not Available [facility] 06/28/2022 14:45:26 What Is Your Level Of Alcohol Consumption? None [id number] Information not available 06/28/2022 In The 14 Days Before Symptom Onset, Have You Had Close Contact With A Laboratory-confirm ed COVID-19 While That Case Was Ill? No [id number] Information not available 06/28/2022 In The 14 Days Before Symptom Onset, Have You Had Close Contact With A Person Who Is Under Investigation For COVID-19 While That Person Was Ill? No [id number] Information not available 06/28/2022 What Type Of Diet Are You Following? REGULAR [id number] 026 Information not available 06/28/2022 What Was The Date Of Your Most Recent Tobacco Screening? 10/25/2021 [id number] Information not available 06/28/2022 Have You Recently Traveled Abroad? No [id number] Information not available 06/28/2022 Do You Have Any Dietary Restrictions? No [id number] Information not available 06/28/2022 Sex: Unknown Functional Status Question Answer Note LastModified by [employer] Details LastModified Time What is your exercise level? Heavy [id number] Information not available 06/28/2022 Mental Status None recorded. Family History Relationship Description Onset Age of this Age Resolved Age Notes LastModified by Organization Details LastModified Time Mother Malignant tumor of colon [id number] Not available 06/28/2022 14:45:53 Maternal Grandmother Malignant tumor of colon [id number].158 [id number] Not available 06/28/2022 14:45:53 Sister Cerebrovascu lar accident [id number].382 [id number] Not available 06/28/2022 14:45:53 Sister Systemic lupus erythematosu s [id number].430 [id number] Not available 06/28/2022 14:45:53 Medical History Condition Response ARTHRITIS Y USE OF BLOOD THINNERS Y COPD Y Immunizations Vaccine Type Date Status Note Provider Nam e and Address Organization Details Recorded Time Influenza, split virus, quadrivalent, PF 01/26/2022 completed Not Available [facility] 14:51:46 Past Encounters Encounter ID Performer Location Encounter Start Date Encounter Closed Date Diagnosis/Indication Diagnosis SNOMED-CT Code Diagnosis ICD10 Code Diagnosis Note [id number] [facility] [place] [address] [place] [address] [address] [place] [address] 06/21/2021 00:00:00 06/26/2021 22:11:14 [id number] [facility] [place] [address] [place] [address] [address] [place] [address] 08/31/2021 00:00:00 08/31/2021 17:02:32 [id number] [facility] [place] [address] [place] [address] [address] [place] [address] 09/28/2021 00:00:00 09/28/2021 12:22:48 [id number] [facility] [place] [address] [place] [address] [address] [place] [address] 10/12/2021 00:00:00 10/27/2021 09:52:45 [id number] [facility] [place] [address] [place] [address] [address] [place] [address] 10/17/2021 00:00:00 10/17/2021 18:51:11 [id number] [facility] [place] [address] [place] [address] 10/25/2021 00:00:00 10/25/2021 11:53:10 [id number] [facility] [place] [address] [place] [address] 11/08/2021 00:00:00 11/08/2021 12:20:24 [id number] [facility] [place] [address] [place] [address] 11/16/2021 00:00:00 11/16/2021 16:58:21 [id number] [facility] [place] [address] [place] [address] 11/22/2021 00:00:00 11/22/2021 14:13:16 [id number] [facility] [place] [address] [place] [address] 12/13/2021 00:00:00 12/13/2021 15:04:03 [id number] [facility] [place] [address] [place] [address] 01/03/2022 00:00:00 01/03/2022 16:56:40 [id number] [facility] [address] [facility] [place] [address] 01/26/2022 00:00:00 01/26/2022 18:09:34 [id number] [facility] [place] [address] [place] [address] 01/31/2022 00:00:00 01/31/2022 17:20:38 [id number] [facility] [place] [address] [facility] [address] [place] [address] 02/09/2022 00:00:00 02/09/2022 16:28:50 [id number] [facility] [place] [address] [place] [address] 02/28/2022 00:00:00 02/28/2022 14:00:[id number] [facility] [place] [address] [place] [address] 03/28/2022 00:00:00 03/28/2022 14:21:46 [id number] [facility] [address] [facility] [address] [place] [address] 04/03/2022 00:00:00 04/03/2022 11:34:[id number] [facility] [place] [address] [place], [place] [address] 06/13/2022 00:00:00 06/13/2022 12:17:43 [id number] Domonique Troy MD [address] [place] [address] 07/03/2022 09:11:50 07/03/2022 09:40:44 Adult health examination 110442625 Z00.00 Z13.1 Recommend shingles vaccines seriesTdap up to date 2Recomm end yearly flu and covid vaccinesCh carmen fasting labsColono scopy done 2021-will get report from Dr. Peres to know whenRecomm end smoking cessationP una ldct scan starting age 54 Erectile dysfunction 860 777347 F52.21 check labstadala nel 20 mg-reviewe d how to use properly and potential med s/e Hyperlipidemia 38677364 E78.5 Z79.899 Screening for malignant neoplasm of prostate 377273674 Z12.5 [id number] [facility] Primary Care [facility] [address] [facility] [address] [place] [address] 12/07/2022 12:07:08 12/07/2022 12:26:29 Chronic obstructive pulmonary disease 39179890 J44.9 nebulizer machine ordereduse duoneb q6 hours prn Degenerati on of intervertebral disc 83360578 M51.9 stablePt understand s this medication has risk for abuse/depe ndence and agrees to take it only as prescribed and to guard from loss/theft [id number] GOME[facility] [place] [address] [facility] [address] [place] [address] 10/01/2023 15:49:07 10/01/2023 16:21:22 Health Concerns Section Related Observation LastModified by Organization Detai ls LastModified Time None Recorded Concern Status LastModified by Organization Details LastModified Time None Recorded Advance Directives Directive None Recorded Payers Encounter Date Sequence Insurance Name Policy Number Policy Henriquez Covered Member ID Henriquez Member ID Guarantor Name 07/03/2022 1 [facility] [id number] [facility] [id number] Salvatore Cool 12/07/2022 1 [facility] [id number] [facility] [id number] Salvatore Cool 10/01/2023 1 [facility] [id number] [facility] [id number] Salvatore Cool Notes Date Note Type Note Provider Name and Address Organization Details Recorded Time 07/03/2022 text/html Here for annual check up Domonique Troy MD [address] [place] [address], [address], [place] [facility] 07/03/2022 09:42:59 12/07/2022 text/html Was seeing neurology Dr. 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 Pain radiates down left leg, +numbness/tingling bilateral left leg. Left leg can be weak, he has fallen before from weakness. Pain constant, waxes and wanes in intensity. 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 Domonique Troy MD [address] [place] [address], [place], [address], [facility] [employer] [facility] 12/13/2022 18:01:09
--- OUTSIDE RECORDS SUMMARY | 2024-08-08 10:19 | XMS_ITS | Data Portability ---
[facility] [address] [place] [address] Assessment Encounter Date Assessment Date Assessment LastModified by Organization Details LastModified Time 01/08/2024 01/08/2024 blood work. Medicines refilled. Nicotine patch. Blood pressure a little bit up he says stressful because of what is going on with the follow up with me in 4 months records from previous clinic LD CT [email or web address] Not available 01/26/2024 21:27:41 05/13/2024 05/13/2024 quitting tobacco care instructions refill medications check blood work he says that awhile back from different physician his cholesterol was 320 he changed his diet dramatically and it came down to 165 so he quit taking his medication we will see what it shows LD CT obtain his colonoscopy report declines pneumococcal or COVID shot [email or web address] Not available 05/13/2024 22:23:42 07/28/2024 07/28/2024 he would like a 2nd opinion we will send him to orthopedics no repetitive bending twisting or lifting over 10 lb until he was seen by Orthopedics. He will keep his regular follow up with me [email or web address] Not available 08/02/2024 21:21:45 Plan of Treatment Reminders Order Date Submit Date Provider Last Modified By Organization Details Last Modified Time Details Appointments ANY 15 2024 11:30A M Maxim Almaraz MD Not available Not available Not available Lab lipid panel, serum 2024 025 [facility], [address], [address], [place], [address], 05/15/2024 08:25:33 CMP, serum or plasma 2024 025 MARIA C YUNG, [address], [address], [place], [address], 05/15/2024 08:25:34 CBC w/ auto diff 2024 025 MARIA C MENDEZRP, [address], [address], [place], [address], 05/15/2024 08:25:36 CBC w/ auto diff 2023 024 MARIA C MENDEZRP, [address], [address], [place], [address], 01/09/2024 08:31:27 lipid panel, serum 2023 024 MARIA C MENDEZTATE, [address], [address], [place], [address], 01/09/2024 08:31:26 CMP, serum or plasma 2023 024 MARIA C YUNG, [address], [address], [place], [address], 01/09/2024 08:31:26 Referral orthopedi c surgeon referral 2024 025 MARIA C Amos MD, [address], [place], [address], 08/05/2024 10:49:43 Procedures None recorded. Surgeries None recorded. Imaging LDCT, chest, for lung cancer screening 2024 025 [facility] (Im[facility]), [address], [place], [address], 07/29/2024 13:58:58 LDCT, chest, for lung cancer screening 2023 024 [facility] ([facility]), [address] [place], [address], 05/13/2024 17:18:03 Medication Orders tadalafil 20 mg tablet 2024 025 [email or web address] [id number] [address], [place], [id number], 05/13/2024 17:25:07 nicotine 7 mg/24 hr daily transderm al patch [address] [facility] [address] [facility], [address] [place] [address], [address], 01/08/2024 18:17:15 nicotine 14 mg/24 hr daily transderm al patch [address] [facility] [address] [facility], [address] [place] [address], [address], 01/08/2024 18:17:15 nicotine 21 mg/24 hr daily transderm al patch [address] [facility] [address] [facility], [address] [place] [address], [address], 01/08/2024 18:17:15 albuterol sulfate HFA 90 mcg/actua tion aerosol inhaler [address] [facility] [address] [facility], [address] [place] [address], [address], 01/08/2024 18:17:15 Patient TargetsNo targets recorded. Patient Instructions Encounter Date Encounter Id Patient Instructions Last Modified By Organization Details Last Modified Time 05/13/2024 [id number] Quitting Tobacco : Care Instructions [email or web address] Not available 05/13/2024 17:25:07 07/28/2024 [id number] A healthy lifestyle: care instructions [email or web address] Not available 07/28/2024 17:54:10 Quitting Tobacco : Care Instructions [email or web address] Not available 07/28/2024 17:54:10 Reason for Referral Orthopedic Surgeon Referral for Bilateral hip joint pain Referring Physician: Maxim Almaraz, Internal Medicine, Encounter Date: 07/28/2024 Results Created Date Observation Date Name Description Value Unit Range Abnormal Flag Note LastModifiedBy Organization Detail LastModifiedTime 01/08/20 24 01/09/2024 LIPID PANEL cholesterol, total 186 mg/dL 100-19 9 Not Available [facility] ([facility]) [address] [place], [address], 01/09/2024 08:31:25 01/08/20 24 01/09/2024 LIPID PANEL triglyceride s 343 mg/dL 0-149 above high normal Not Available [facility] ([facility]) [address] [place], [address], 01/09/2024 08:31:25 01/08/20 24 01/09/2024 LIPID PANEL HDL cholesterol 28 mg/dL >39 below low normal Not Available [facility] ([facility]) [address] [place], [address], 01/09/2024 08:31:25 01/08/20 24 01/09/2024 LIPID PANEL VLDL cholesterol juan pablo 58 mg/dL 5-40 above high normal Not Available [facility] ([facility]) [address] [place], [address], 01/09/2024 08:31:25 01/08/20 24 01/09/2024 LIPID PANEL LDL chol calc ([facility]) 100 mg/dL 0-99 above high normal Not Available [facility] ([facility]) [address] [place], [address], 01/09/2024 08:31:25 01/08/20 24 01/09/2024 COMP. METAB OLIC PANEL (14) glucose 79 mg/dL 70-99 Not Available [facility] ([facility]) [address] [place], [address], 01/09/2024 08:31:26 01/08/20 24 01/09/2024 COMP. METAB OLIC PANEL (14) BUN 7 mg/dL 6-24 Not Available [facility] ([facility]) [address] [place], [address], 01/09/2024 08:31:26 01/08/20 24 01/09/2024 COMP. METAB OLIC PANEL (14) creatinine 0.88 mg/dL 0.76-1 .27 Not Available [facility] ([facility]) [address] [facility], [place], [address], 01/09/2024 08:31:26 01/08/20 24 01/09/2024 COMP. METAB OLIC PANEL (14) eGFR 102 mL/mi n/1.7 3 >59 Not Available [facility] ([facility]) [address] [facility], [place], [address], 01/09/2024 08:31:26 01/08/20 24 01/09/2024 COMP. METAB OLIC PANEL (14) BUN/creatini ne ratio 8 9-20 below low normal Not Available [facility] ([facility]) [address] [facility], [place], [address], 01/09/2024 08:31:26 01/08/20 24 01/09/2024 COMP. METAB OLIC PANEL (14) sodium 139 mmol/ L 134-14 4 Not Available [facility] ([facility]) [address] [facility], [place], [address], 01/09/2024 08:31:26 01/08/20 24 01/09/2024 COMP. METAB OLIC PANEL (14) potassium 4.4 mmol/ L 3.5-5. 2 Not Available [facility] ([facility]) [address] [facility], [place], [address], 01/09/2024 08:31:26 01/08/20 24 01/09/2024 COMP. METAB OLIC PANEL (14) chloride 102 mmol/ L 96-106 Not Available [facility] ([facility]) [address], [address], 01/09/2024 08:31:26 01/08/20 24 01/09/2024 COMP. METAB OLIC PANEL (14) carbon dioxide, total 24 mmol/ L 20-29 Not Available [facility] ([facility]) [address] [place], [address], 01/09/2024 08:31:26 01/08/20 24 01/09/2024 COMP. METAB OLIC PANEL (14) calcium 9.4 mg/dL 8.7-10 .2 Not Available [facility] ([facility]) [address] [place], [address], 01/09/2024 08:31:26 01/08/20 24 01/09/2024 COMP. METAB OLIC PANEL (14) protein, total 6.6 g/dL 6.0-8. 5 Not Available [facility] ([facility]) [address] [facility] [place], [address], 01/09/2024 08:31:26 01/08/20 24 01/09/2024 COMP. METAB OLIC PANEL (14) albumin 4.2 g/dL 3.8-4. 9 Not Available [facility] ([facility]) [address] [facility] [place], [address], 01/09/2024 08:31:26 01/08/20 24 01/09/2024 COMP. METAB OLIC PANEL (14) globulin, total 2.4 g/dL 1.5-4. 5 Not Available [facility] ([facility]) [address] [facility] [place], [address], 01/09/2024 08:31:26 01/08/20 24 01/09/2024 COMP. METAB OLIC PANEL (14) bilirubin, total 0.3 mg/dL 0.0-1. 2 Not Available [facility] ([facility]) [address] [place], [address], 01/09/2024 08:31:26 01/08/20 24 01/09/2024 COMP. METAB OLIC PANEL (14) alkaline phosphatase 85 IU/L 44-121 Not Available [facility] [address] [facility] [place], [address], 01/09/2024 08:31:26 01/08/20 24 01/09/2024 COMP. METAB OLIC PANEL (14) AST (SGOT) 29 IU/L 0-40 Not Available [facility] ([facility]) [address] [facility] [place], [address], 01/09/2024 08:31:26 01/08/20 24 01/09/2024 COMP. METAB OLIC PANEL (14) ALT (SGPT) 57 IU/L 0-44 above high normal Not Available [facility] ([facility]) [address] [place], [address], 01/09/2024 08:31:26 01/08/20 24 01/09/2024 CBC WITH DIFFE RENTI AL/PL ATELE T WBC 12.4 x10e3 /uL 3.4-10 .8 above high normal Not Available [facility] ([facility]) [address] [place], [address], 01/09/2024 08:31:27 01/08/20 24 01/09/2024 CBC WITH DIFFE RENTI AL/PL ATELE T RBC 4.89 x10e6 /uL 4.14-5 .80 Not Available [facility] ([facility]) [address] [place], [address], 01/09/2024 08:31:27 01/08/20 24 01/09/2024 CBC WITH DIFFE RENTI AL/PL ATELE T hemoglobin 16.1 g/dL 13.0-1 7.7 Not Available [facility] ([facility]) [address] [facility], [place], [address], 01/09/2024 08:31:27 01/08/20 24 01/09/2024 CBC WITH DIFFE RENTI AL/PL ATELE T hematocrit 48.7 % 37.5-5 1.0 Not Available [facility] ([facility]) [address] [facility], [place], [address], 01/09/2024 08:31:27 01/08/20 24 01/09/2024 CBC WITH DIFFE RENTI AL/PL ATELE T MCV 100 fL 79-97 above high normal Not Available [facility] ([facility]) [address] [facility], [place], [address], 01/09/2024 08:31:27 01/08/20 24 01/09/2024 CBC WITH DIFFE RENTI AL/PL ATELE T MCH 32.9 pg 26.6-3 3.0 Not Available [facility] ([facility]) [address] [facility], [place], [address], 01/09/2024 08:31:27 01/08/20 24 01/09/2024 CBC WITH DIFFE RENTI AL/PL ATELE T MCHC 33.1 g/dL 31.5-3 5.7 Not Available [facility] ([facility]) [address] [facility], [place], [address], 01/09/2024 08:31:27 01/08/20 24 01/09/2024 CBC WITH DIFFE RENTI AL/PL ATELE T RDW 12.7 % 11.6-1 5.4 Not Available [facility] ([facility]) [address] [facility], [place], [address], 01/09/2024 08:31:27 01/08/20 24 01/09/2024 CBC WITH DIFFE RENTI AL/PL ATELE T platelets 228 x10e3 /uL 150-45 0 Not Available [facility] ([facility]) [address] [facility], [place], [address], 01/09/2024 08:31:27 01/08/20 24 01/09/2024 CBC WITH DIFFE RENTI AL/PL ATELE T neutrophils 53 % notest ab. Not Available [facility] ([facility]) [address] [facility], [place], [address], 01/09/2024 08:31:27 01/08/20 24 01/09/2024 CBC WITH DIFFE RENTI AL/PL ATELE T lymphs 40 % notest ab. Not Available [facility] ([facility]) [address] [facility], [place], [address], 01/09/2024 08:31:27 01/08/20 24 01/09/2024 CBC WITH DIFFE RENTI AL/PL ATELE T monocytes 5 % notest ab. Not Available [facility] ([facility]) [address] [facility], [place], [address], 01/09/2024 08:31:27 01/08/20 24 01/09/2024 CBC WITH DIFFE RENTI AL/PL ATELE T eos 2 % notest ab. Not Available [facility] ([facility]) [address] [facility], [place], [address], 01/09/2024 08:31:27 01/08/20 24 01/09/2024 CBC WITH DIFFE RENTI AL/PL ATELE T basos 0 % notest ab. Not Available [facility] ([facility]) [address] [facility], [place], [address], 01/09/2024 08:31:27 01/08/20 24 01/09/2024 CBC WITH DIFFE RENTI AL/PL ATELE T neutrophils (absolute) 6.5 x10e3 /uL 1.4-7. 0 Not Available [facility] ([facility]) [address] [facility], [place], [address], 01/09/2024 08:31:27 01/08/20 24 01/09/2024 CBC WITH DIFFE RENTI AL/PL ATELE T lymphs (absolute) 4.9 x10e3 /uL 0.7-3. 1 above high normal Not Available [facility] ([facility]) [address] [facility], [place], [address], 01/09/2024 08:31:27 01/08/20 24 01/09/2024 CBC WITH DIFFE RENTI AL/PL ATELE T monocytes(ab solute) 0.6 x10e3 /uL 0.1-0. 9 Not Available [facility] ([facility]) [address] [facility], [place], [address], 01/09/2024 08:31:27 01/08/20 24 01/09/2024 CBC WITH DIFFE RENTI AL/PL ATELE T eos (absolute) 0.2 x10e3 /uL 0.0-0. 4 Not Available [facility] ([facility]) [address] [facility], [place], [address], 01/09/2024 08:31:27 01/08/20 24 01/09/2024 CBC WITH DIFFE RENTI AL/PL ATELE T baso (absolute) 0.0 x10e3 /uL 0.0-0. 2 Not Available [facility] ([facility]) [address] [facility], [place], [address], 01/09/2024 08:31:27 01/08/20 24 01/09/2024 CBC WITH DIFFE RENTI AL/PL ATELE T immature granulocytes 0 % notest ab. Not Available [facility] ([facility]) [address] [facility], [place], [address], 01/09/2024 08:31:27 01/08/20 24 01/09/2024 CBC WITH DIFFE RENTI AL/PL ATELE T immature grans (abs) 0.0 x10e3 /uL 0.0-0. 1 Not Available [facility] ([facility]) [address] [place], [address], 01/09/2024 08:31:27 05/14/19 25 05/15/2024 LIPID PANEL cholesterol, total 185 mg/dL 100-19 9 Not Available [facility] ([facility]) [address] [place], [address], 05/15/2024 08:25:33 05/14/19 25 05/15/2024 LIPID PANEL triglyceride s 175 mg/dL 0-149 above high normal Not Available [facility] ([facility]) [address] [place], [address], 05/15/2024 08:25:33 05/14/19 25 05/15/2024 LIPID PANEL HDL cholesterol 33 mg/dL >39 below low normal Not Available [facility] ([facility]) [address] [place], [address], 05/15/2024 08:25:33 05/14/19 25 05/15/2024 LIPID PANEL VLDL cholesterol juan pablo 31 mg/dL 5-40 Not Available [facility] [address] [place], [address], 05/15/2024 08:25:33 05/14/19 25 05/15/2024 LIPID PANEL LDL chol calc ([facility]) 121 mg/dL 0-99 above high normal Not Available [facility] ([facility]) [address] [place], [address], 05/15/2024 08:25:33 05/14/19 25 05/15/2024 COMP. METAB OLIC PANEL (14) glucose 90 mg/dL 70-99 Not Available [facility] ([facility]) [address] [place], [address], 05/15/2024 08:25:34 05/14/19 25 05/15/2024 COMP. METAB OLIC PANEL (14) BUN 6 mg/dL 6-24 Not Available [facility] ([facility]) [address] [place], [address], 05/15/2024 08:25:34 05/14/19 25 05/15/2024 COMP. METAB OLIC PANEL (14) creatinine 0.74 mg/dL 0.76-1 .27 below low normal Not Available [facility] ([facility]) [address] [place], [address], 05/15/2024 08:25:34 05/14/19 25 05/15/2024 COMP. METAB OLIC PANEL (14) eGFR 107 mL/mi n/1.7 3 >59 Not Available [facility] ([facility]) [address] [facility], [place], [address], 05/15/2024 08:25:34 05/14/19 25 05/15/2024 COMP. METAB OLIC PANEL (14) BUN/creatini ne ratio 8 9-20 below low normal Not Available [facility] ([facility]) [address] [facility], [place], [address], 05/15/2024 08:25:34 05/14/19 25 05/15/2024 COMP. METAB OLIC PANEL (14) sodium 141 mmol/ L 134-14 4 Not Available [facility] ([facility]) [address] [place], [address], 05/15/2024 08:25:34 05/14/19 25 05/15/2024 COMP. METAB OLIC PANEL (14) potassium 3.7 mmol/ L 3.5-5. 2 Not Available [facility] ([facility]) [address] [place], [address], 05/15/2024 08:25:34 05/14/19 25 05/15/2024 COMP. METAB OLIC PANEL (14) chloride 102 mmol/ L 96-106 Not Available [facility] ([facility]) [address] [facility], [place], [address], 05/15/2024 08:25:34 05/14/19 25 05/15/2024 COMP. METAB OLIC PANEL (14) carbon dioxide, total 23 mmol/ L Not Available [facility] ([facility]) [address] [place], [address], 05/15/2024 08:25:34 05/14/19 25 05/15/2024 COMP. METAB OLIC PANEL (14) calcium 9.4 mg/dL 8.7-10 .2 Not Available [facility] ([facility]) [address] [place], [address], 05/15/2024 08:25:34 05/14/19 25 05/15/2024 COMP. METAB OLIC PANEL (14) protein, total 6.6 g/dL 6.0-8. 5 Not Available [facility] ([facility]) [address] [facility] [place], [address], 05/15/2024 08:25:34 05/14/19 25 05/15/2024 COMP. METAB OLIC PANEL (14) albumin 4.5 g/dL 3.8-4. 9 Not Available [facility] ([facility]) [address] [facility] [place], [address], 05/15/2024 08:25:34 05/14/19 25 05/15/2024 COMP. METAB OLIC PANEL (14) globulin, total 2.1 g/dL 1.5-4. 5 Not Available [facility] ([facility] [address] [place], [address], 05/15/2024 08:25:34 05/14/19 25 05/15/2024 COMP. METAB OLIC PANEL (14) bilirubin, total 0.5 mg/dL 0.0-1. 2 Not Available [facility] ([facility]) [address] [facility] [place], [address], 05/15/2024 08:25:34 05/14/19 25 05/15/2024 COMP. METAB OLIC PANEL (14) alkaline phosphatase 93 IU/L 44-121 Not Available [facility] ([facility]) [address] [facility], [place], [address], 05/15/2024 08:25:34 05/14/19 25 05/15/2024 COMP. METAB OLIC PANEL (14) AST (SGOT) 18 IU/L 0-40 Not Available [facility] ([facility]) [address] [facility], [place], [address], 05/15/2024 08:25:34 05/14/19 25 05/15/2024 COMP. METAB OLIC PANEL (14) ALT (SGPT) 28 IU/L 0-44 Not Available [facility] ([facility]) [address] [facility], [place], [address], 05/15/2024 08:25:34 05/14/19 25 05/15/2024 CBC WITH DIFFE RENTI AL/PL ATELE T WBC 12.7 x10e3 /uL 3.4-10 .8 above high normal Not Available [facility] ([facility]) [address] [place], [address], 05/15/2024 08:25:36 05/14/1905/15/2024 CBC WITH DIFFE RENTI AL/PL ATELE T RBC 4.88 x10e6 /uL 4.14-5 .80 Not Available [facility] ([facility]) [address] [place], [address], 05/15/2024 08:25:36 05/14/19 25 05/15/2024 CBC WITH DIFFE RENTI AL/PL ATELE T hemoglobin 16.3 g/dL 13.0-1 7.7 Not Available [facility] ([facility]) [address] [place], [address], 05/15/2024 08:25:36 05/14/1905/15/2024 CBC WITH DIFFE RENTI AL/PL ATELE T hematocrit 47.3 % 37.5-5 1.0 Not Available [facility] ([facility]) [address] [facility], [place], [address], 05/15/2024 08:25:36 05/14/1905/15/2024 CBC WITH DIFFE RENTI AL/PL ATELE T MCV 97 fL 79-97 Not Available [facility] ([facility]) [address] [place], [address], 05/15/2024 08:25:36 05/14/1905/15/2024 CBC WITH DIFFE RENTI AL/PL ATELE T MCH 33.4 pg 26.6-3 3.0 above high normal Not Available [facility] ([facility]) [address] [place], [address], 05/15/2024 08:25:36 05/14/1905/15/2024 CBC WITH DIFFE RENTI AL/PL ATELE T MCHC 34.5 g/dL 31.5-3 5.7 Not Available [facility] ([facility]) [address] [place], [address], 05/15/2024 08:25:36 05/14/1905/15/2024 CBC WITH DIFFE RENTI AL/PL ATELE T RDW 13.0 % 11.6-1 5.4 Not Available [facility] ([facility]) [address] [place], [address], 05/15/2024 08:25:36 05/14/1905/15/2024 CBC WITH DIFFE RENTI AL/PL ATELE T platelets 277 x10e3 /uL 150-45 0 Not Available [facility] ([facility]) [address] [place], [address], 05/15/2024 08:25:36 05/14/19 25 05/15/2024 CBC WITH DIFFE RENTI AL/PL ATELE T neutrophils 50 % notest ab. Not Available [facility] ([facility]) [address] [facility], [place], [address], 05/15/2024 08:25:36 05/14/19 25 05/15/2024 CBC WITH DIFFE RENTI AL/PL ATELE T lymphs 44 % notest ab. Not Available [facility] ([facility]) [address] [facility], [place], [address], 05/15/2024 08:25:36 05/14/1905/15/2024 CBC WITH DIFFE RENTI AL/PL ATELE T monocytes 5 % notest ab. Not Available [facility] ([facility]) [address] [facility], [place], [address], 05/15/2024 08:25:36 05/14/1905/15/2024 CBC WITH DIFFE RENTI AL/PL ATELE T eos 1 % notest ab. Not Available [facility] ([facility]) [address] [facility], [place], [address], 05/15/2024 08:25:36 05/14/1905/15/2024 CBC WITH DIFFE RENTI AL/PL ATELE T basos 0 % notest ab. Not Available [facility] ([facility]) [address] [facility], [place], [address], 05/15/2024 08:25:36 05/14/1905/15/2024 CBC WITH DIFFE RENTI AL/PL ATELE T neutrophils (absolute) 6.3 x10e3 /uL 1.4-7. 0 Not Available [facility] ([facility]) [address] [facility], [place], [address], 05/15/2024 08:25:36 05/14/1905/15/2024 CBC WITH DIFFE RENTI AL/PL ATELE T lymphs (absolute) 5.5 x10e3 /uL 0.7-3. 1 above high normal Not Available [facility] ([facility]) [address] [facility], [place], [address], 05/15/2024 08:25:36 05/14/1905/15/2024 CBC WITH DIFFE RENTI AL/PL ATELE T monocytes(ab solute) 0.7 x10e3 /uL 0.1-0. 9 Not Available [facility] ([facility]) [address] [facility], [place], [address], 05/15/2024 08:25:36 05/14/1905/15/2024 CBC WITH DIFFE RENTI AL/PL ATELE T eos (absolute) 0.1 x10e3 /uL 0.0-0. 4 Not Available [facility] ([facility]) [address] [place], [address], 05/15/2024 08:25:36 05/14/1905/15/2024 CBC WITH DIFFE RENTI AL/PL ATELE T baso (absolute) 0.0 x10e3 /uL 0.0-0. 2 Not Available [facility] ([facility]) [address] [place], [address], 05/15/2024 08:25:36 05/14/1905/15/2024 CBC WITH DIFFE RENTI AL/PL ATELE T immature granulocytes 0 % notest ab. Not Available [facility] ([facility]) [address] [place], [address], 05/15/2024 08:25:36 05/14/1905/15/2024 CBC WITH DIFFE RENTI AL/PL ATELE T immature grans (abs) 0.0 x10e3 /uL 0.0-0. 1 Not Available [facility] ([facility]) [address] [place], [address], 05/15/2024 08:25:36 01/01/20 24 01/01/2024 XR, lumbo sacra l spine , 4 or more view No observ ation record ed. [facility] [address] [place], [address], 07/28/2024 15:52:54 01/01/20 24 01/01/2024 XR, cervi juan pablo spine , 4 or 5 view No observ ation record ed. [facility] [address] [place], [address], 07/28/2024 15:52:59 01/01/20 24 01/01/2024 XR, thora cic spine , 4 or more view No observ ation record ed. [facility] [address] [place], [address], 07/28/2024 15:53:05 07/17/19 25 06/16/2024 XR, hip + pelvi s, bilat eral No observ ation record ed. [facility] [address], [place], [address], 07/24/2024 12:37:36 Result Notes None recorded. Problems Name Problem SNOMED Code Status Onset Date Resolution Date Notes Provider Name and Address Organization Details Recorded Time Hyperlipidemi a 76275368 Active 2023 Ashwin Beebe MA null, [place] - [facility] 4 16:36:45 Chronic obstructive pulmonary disease 99278806 Active 2023 Ashwin Beebe MA null, [place] - [facility] 4 16:36:46 Insomnia 601367916 Active 2023 Maxim Almaraz MD Attn: Ela osman,[address] [place], [address], [place] [facility] 21:24:13 Nicotine dependence 97149357 Active 2023 Maxim Almaraz MD Attn: Ela osman,[address] [facility], [place], [address], [place] - [facility] 4 21:24:38 SARS-CoV-2 vaccination declined 7534287695 Active 2024 Maxim Almaraz MD Attn: Ela osman,[address] [facility], [place], [place], [address], [place] [facility] 5 22:24:03 Pneumococcal vaccination declined [id number] Active 2024 Maxim Almaraz MD Attn: Ela osman,[address] [facility], [place], [address], [place] [facility] 22:24:05 Problem Notes None recorded. Procedures Surgical History None recorded. Imaging Results Imaging Date Name Status LastModified by Organiz ation Details LastModified Time 01/01/2024 XR, lumbosacral spine, [address] [facility] [address] [place], [address], 07/28/2024 15:52:54 01/01/2024 XR, cervical spine, [address] [facility] [address] [place], [address], 07/28/2024 15:52:59 01/01/2024 XR, thoracic spine, [address] [facility] [address] [place], [address], 07/28/2024 15:53:05 06/16/2024 XR, hip + pelvis, bilateral completed [facility] [address], [address], 07/24/2024 12:37:36 Procedure Notes None recorded. Medical Equipment None Reported. Medications Name Sig Start Date Stop Date Status Note LastModified by Organization Details LastModified Time nicotine 14 mg/24 hr daily transderm al patch APPLY 1 PATCH TOPICALL Y ONCE DAILY active Not Available Not Available No t Available gabapenti n 400 mg capsule TAKE ONE CAPSULE BY MOUTH FOUR TIMES DAILY NEEDED active [...] TABLET BY MOUTH THREE TIMES DAILY NEEDED MUST LAST 21 DAYS active Not Available Not Available No [...] Updated DateTime 4 180.34 cm 30.1 kg/m2 96235.7 8 g 63 /min 96 % 96 % 142 mm[Hg] 80 mm[Hg] Sun García [place] [facility] 4 15:29:43 Date Recorded Body height Body mass index (BMI) Body weight Heart rate Oxygen saturation Oxygen saturation in Arterial blood by Pulse oximetry Systolic blood pressure Diastolic blood pressure Provider Name and Address Organization Details Last Updated DateTime 5 180.34 cm 28 kg/m2 72753.4 3 g 86 /min 97 % 97 % 126 mm[Hg] 62 mm[Hg] Miryam Bravo MA [place] - [facility] 5 16:24:10 Date Recorded Body height Body mass index (BMI) Body weight Heart rate Oxygen saturation Oxygen saturation in Arterial blood by Pulse oximetry Systolic blood pressure Diastolic blood pressure Provider Name and Address Organization Details Last Updated DateTime 5 180.34 cm 28 kg/m2 27356.4 3 g 85 /min 97 % 97 % 130 mm[Hg] 68 mm[Hg] Miryam Bravo MA [facility] 5 15:20:41 Social History Question Answer Notes LastModified by Organizat ion Details LastModified Time Tobacco Smoking Status Current Every Day Smoker Sun García MA [facility] 01/08/2024 15:19:49 Do You Have An Advance [...] Date Of Your Most Recent Tobacco Screening? 07/28/2024 Information not available 07/28/2024 What Is Your Relationship Status? Information not [...] Anxious, Or Unable To Sleep At Night)? [id number] JOB RELATED STRESS Information not available 01/08/2024 Do You Use Any Illicit Or Recreational Drugs? Yes Edible THC Information not available 01/08/2024 Do You Use Sunscreen Routinely? No Information not available 01/08/2024 Has Tobacco Cessation Counseling Been Provided? Yes Information not available 05/13/2024 On What Date Was Tobacco Cessation Counseling Provided? 07/28/2024 Information not available 07/28/2024 How Many Years Have You Smoked Tobacco? [...] 15:19:01 Medical History No medical history recorded. Immunizations Vaccine Type Date Status Note Provider Nam e and Address Organization Details Recorded Time Influenza, split virus, quadrivalent, PF 01/26/2022 completed [address] MA [facility] 07/28/2024 13:45:22 Past Encounters Encounter ID Performer Location Encounter Start Date Encounter Closed Date Diagnosis/Indication Diagnosis SNOMED-CT Code Diagnosis ICD10 Code Diagnosis Note [id number] MD Meli Troncoso (Adult Med) [address] [place] [address] 01/08/2024 15:03:30 01/08/2024 16:50:39 Hyperlipidemia 46259930 E78.5 Chronic ob structive pulmonary disease 38482092 J44.9 Nicotine dependence 5629 4008 Z87.891 Insomnia 878042264 G47.0 0 [id number] MD Meli Troncoso (Adult Med) [address] [place] [id number] 05/13/2024 15:46:20 05/13/2024 17:26:46 Smoker 09941389 F17.200 Body mass index 25-29 - overweight 635619528 Z68.28 Nicotine dependence 5629 4008 Z87.891 Chronic ob structive pulmonary disease 74994506 J44.9 Erectile dysfunction 860 790699 F52.21 Screening for cardiovascular system disease 569999947 Z13.6 Long-term drug therapy 457756583 Z79.891 Hyperlipidemia 36483090 E78.5 Pneumococc al vaccination declined 807225859 Z28.21 SARS-CoV-2 vaccination declined 8179711208 Z28.21 [id number] Maxim Almaraz MD [facility] [place] [address] [place] [address] 07/28/2024 14:49:53 07/28/2024 16:00:48 Smoker 08939388 F17.200 Body mass index 25-29 - overweight 680992789 Z68.28 Overweight 944507284 E66 .3 Bilateral hip joint pain 1312268413 6363613 M25.551 M25.552 Health Concerns Section Related Observation LastModified by Organization Detai ls LastModified Time None Recorded Concern Status LastModified by Organization Details LastModified Time None Recorded Advance Directives Directive N: Payers Encounter Date Sequence Insurance Name Policy Number Policy Henriquez Covered Member ID Henriquez Member ID Guarantor Name 01/08/2024 1 [facility] Nicol Welshenedina [id number] Salvatore Cortezgeroge 05/13/2024 1 [facility] Nicol Welshenedina [id number] Salvatore Welshenedina 07/28/2024 1 [facility] [id number] Salvatore Welshenedina [id number] Salvatore Blaiseenedina Notes Date Note Type Note Provider Name [...] a day smoker Maxim Almaraz MD Attn: Accounting, [address] [place], [address], [facility] 01/26/2024 21:28:21 05/13/2024 text/html hyperlipidemia q uit taking his medication says he wants it checked before he starts again. Continue smoking needs a LD CT. Needs refill of his erectile dysfunction medicine which works pretty good COPD no cough or wheezing or shortness of breath Maxim Almaraz MD Attn: Accounting[address] [place], [address], [facility] 05/13/2024 22:24:22 07/28/2024 text/html been dealing wit h pain management he has got severe bilateral hip pain arthritis is seen hard for him to stand up from sitting position Maxim Almaraz MD Attn: Accounting[address] [place], [address], [facility] 08/02/2024 21:22:02
--- OUTSIDE RECORDS SUMMARY | 2024-08-08 10:19 | XMS_ITS | CONTINUITY OF CARE DOCUMENT ---
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 Role Phone Puneet Gibbons MD Unavailable [phone] KASEY LOVING, PIETRO F Unavailable KASEY LOVING, PIETRO F Unavailable PROBLEMS Condition Status Date Provider Notes TOBACCO ABUSE active Puneet Gibbons MD HYPERTRIGLYCERIDEMIA active Puneet Gibbons MD ENCOUNTERS Date Type Provider Location Encounter Diag nosis - In-person encounter Office Visit Puneet Gibbons MD [place] [facility] TOBACCO ABUSEHYPERTRIGLYCERIDEMIA VITAL SIGNS Date Observation Value Provider blood pressure, diastolic 68 mm[Hg] Emily Pedraza blood pressure, systolic 115 mm[Hg] Priscilla Pedraza pulse rate 47 /min Lety Pedraza oxygen saturation, oximetry 97 % Lety Pedraza respiratory rate E&M 16 /min Lety Pedraza weight E&M 179 [lb_av] Lety Pedraza ALLERGIES No Known Drug Allergies HISTORY OF MEDICATION USE Medication Status Instructions Dates Provider Indications Com ments TRICOR 145 MG ORAL TABLET active ONE TAB. DAILY Puneet Gibbons MD PROTONIX 40 MG ORAL TABLET DELAYED RELEASE active ONE TAB. DAILY Puneet Gibbons MD NORCO 10-325 MG ORAL TABLET active 1 tab by mouth daily Lety Pedraza SOCIAL HISTORY Date Observation Value Provider smoking history, tot al pack/year 25 Puneet Gibbons MD cigarette use 20 Puneet Perez smoking/tobacco cess ation, patient education and counseling yes Jim Brown RN social history E&M Marital Statu s: Elroy reid with family/friends E thnicity: Jim Brown RN social history reviewed E&M reviewed Jim Brown RN physical exercise, f requency, days per week no [employer] caffeine use, averag e drinks per day yes [employer] alcohol use, average drinks per day none [employer] number of years as a smoker 10 years or m [facility] MENTAL STATUS Date Observation Value Provider assessment of judgme nt and insight E&M Alert and oriented to time, place and person. Mood and affect are normal. Jim Brown RN INSURANCE PROVIDERS Payer name Policy type / Coverage type Proctor red libertarian ID [facility] Other [id number] TREATMENT PLAN Date Name Performer test results :will t ry the me H is updated medication list for this problem includes: Tricor 145 Mg Tabs (Fenofibrate) ..... One tab. daily Puneet Gibbons MD test results :The [place] olive was reencouraged to stop smoking. Puneet Gibbons MD test results :sounds to be more like heartburn. will try a ppi and see and also check an echo to see lv function. B P today: 115/68 Prior BP: / () N uclear Stress Findings: 1. Normal Pablito protocol exercise tolerance test. 2 . Normal left ventricular size and function with a calculated ejection fraction of 65%. 3 . Myocardial scintigraphy is normal without evidence for previous myocardial infarction or reversible ischemia. CNE (02/25/2010) Puneet Gibbons MD Date Name LIPID PANEL Complete Echo
--- OUTSIDE RECORDS SUMMARY | 2024-08-08 10:19 | XMS_ITS | Clinical Summary ---
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 [address] PCP - General Family Practice 05/02/19
== END 2024-08-08 09:42 | disposition home or self-care (01) ==
PROVIDERS: PCP Family Medicine; Visit Provider Pain Medicine Interventional Pain Medicine
DX: M47.817 Spondylosis without myelopathy or radiculopathy, lumbosacral region (principal); M99.63 Osseous and subluxation stenosis of intervertebral foramina of lumbar region; M51.26 Other intervertebral disc displacement, lumbar region
CPT/HCPCS: 72148

== ENCOUNTER 2024-10-29 13:22 | Outpatient (CLI) | payer MEDICAID, SELFPAY ==
--- NOTE | ~2024-10-29 | XR_ITS ---
EXAMINATION: SCOLIOSIS DATE: 11/03/2024 7:53 CDT INDICATION: Spondylosis. Myelopathy. TECHNIQUE: Standing AP and lateral views of the thoracolumbar spine FINDINGS: There are 12 rib bearing thoracic vertebral bodies and 5 non-rib bearing lumbar type verteb ral bodies. There is no listhesis, compression deformity or vertebral body anomalies. There is oste openia. There is levoscoliosis of the thoracolumbar spine measuring approximately 5 degrees centered at T12. There is mild multilevel thoracic and lumbar spondylosis. There is carotid atherosclerosis. IMPRESSION: 1. Mild levoscoliosis of the thoracolumbar spine centered at T12 measuring 5 degrees. 2. Mild thoracic and lumbar spondylosis.. Reviewed, dictated and finalized at location A. IMPRESSION: 1. Mild levoscoliosis of the thoracolumbar spine centered at T12 measuring 5 d egrees. 2. Mild thoracic and lumbar spondylosis..
--- NOTE | ~2024-10-29 | XR_ITS ---
3 VIEWS LUMBAR SPINE Ordering provider: Morro Duarte MD History: . M47.816 - Spondylosis without myelopathy or radiculopathy... . Comparison: None. FINDINGS: VERTEBRAL BODIES: No visible fracture or subluxation. Possible spondylolysis at the level of L5-S1. DISK SPACES: Narrowing of the disc L5-S1. SOFT TISSUES: Atherosclerotic changes of the aorta. IMPRESSION: No acute osseous abnormality lumbar spine. Degenerative disc disease at the level of L5-S1 Possible spondylolysis at the level of L5-S1. Reviewed, dictated and finalized at location A.
--- OUTSIDE RECORDS SUMMARY | 2024-10-29 13:33 | XMS_ITS | Data Portability ---
Author Organization [facility], Main Office Address [address] [place] [address] Care Team Providers Care Investor Relations Analyst Name Role Phone DOMONIQUE TROY Primary Care Provider DOMONIQUE TROY Referring Provider SOPHIA MEJIA Content Development Specialist [phone] Assessment No assessment recorded. Plan of Treatment Reminders Order Date Submit Date Provider Last Modified By Organization Details Last Modified Time Details Appointments None recorded. Lab PSA, serum or plasma 2022 023 [facility] gh36 Not available 3 12:12:15 testosteron e, free + total, serum 2022 023 [facility] Not available 3 12:08:02 BMP, serum or plasma 2022 023 [facility] gh[facility] Not available 3 12:10:07 lipid panel, serum 2022 023 [facility] gh[facility] Not available 3 12:06:28 hepatic function panel, serum 2022 023 [facility] gh[facility] Not available 3 12:07:24 CBC w/ auto diff 2022 023 [facility] 36 Not available 3 12:56:50 Referral None recorded. Procedures None recorded. Surgeries None recorded. Imaging None recorded. Medication Orders hydrocodone 10 mg-acetamin ophen 325 mg tablet 2022 023 [id number], [address], [place], [id number], 3 12:24:18 ipratropium 0.5 mg-albutero l 3 mg (2.5 mg base)/3 mL nebulizatio n soln 2022 023 [facility] #[id number], [address], [place], [id number], 12:20:36 tadalafil 20 mg tablet 2022 023 [facility] #[id number], [address], [place], [id number], 09:37:11 Patient TargetsNo targets recorded. Patient InstructionsNo instructions recorded. Reason for Referral None Reported. Results Created Date Observation Date Name Description Value Unit Range Abnormal Flag Note LastModifiedBy Organization Detail LastModifiedTime 07/04/1907/03/2022 CBC/C OMPLE TE BLD COUNT W/DIF F white blood cells 12.6 x10'3 /uL 4.2-10 .8 high Not Available [facility] (Lab) [address] [place], [address], 07/03/2022 19:50:28 07/04/1907/03/2022 CBC/C OMPLE TE BLD COUNT W/DIF F red blood cells 5.08 x10'6 /uL 4.10-5 .80 Not Available [facility] (Lab) [address] [place], [address], 07/03/2022 19:50:28 07/04/1907/03/2022 CBC/C OMPLE TE BLD COUNT W/DIF F hemoglobin 16.5 g/dL 13.2-1 7.0 Not Available [facility] (Lab) [address] [place], [address], 07/03/2022 19:50:28 07/04/19 23 07/03/2022 CBC/C OMPLE TE BLD COUNT W/DIF F hematocrit 48.6 % 39.3-5 0.0 Not Available [facility] (Lab) [address] [place], [address], 07/03/2022 19:50:28 07/04/19 23 07/03/2022 CBC/C OMPLE TE BLD COUNT W/DIF F mean red cell volume 95.7 fL 80.0-9 7.0 Not Available [facility] (Lab) [address] [place], [address], 07/03/2022 19:50:28 07/04/19 23 07/03/2022 CBC/C OMPLE TE BLD COUNT W/DIF F mean red cell hemoglobin 32.5 pg 27.0-3 3.0 Not Available [facility] (Lab) [address] [place], [address], 07/03/2022 19:50:28 07/04/19 23 07/03/2022 CBC/C OMPLE TE BLD COUNT W/DIF F mean RBC HGB concentratio n 34.0 g/dL 31.0-3 6.0 Not Available [facility] (Lab) [address] [place], [address], 07/03/2022 19:50:28 07/04/19 23 07/03/2022 CBC/C OMPLE TE BLD COUNT W/DIF F red cell distribution width 13.0 % 11.8-1 5.5 Not Available [facility] (Lab) [address] [place], [address], 07/03/2022 19:50:28 07/04/19 23 07/03/2022 CBC/C OMPLE TE BLD COUNT W/DIF F platelets 232 x10'3 /uL 150-40 0 Not Available [facility] (Lab) [address] [place], [address], 07/03/2022 19:50:28 07/04/19 23 07/03/2022 CBC/C OMPLE TE BLD COUNT W/DIF F mean platelet volume 10.4 fL 9.0-12 .4 Not Available [facility] (Lab) [address] [place], [address], 07/03/2022 19:50:28 07/04/1907/03/2022 CBC/C OMPLE TE BLD COUNT W/DIF F neutrophils 64.6 % 39.0-7 2.0 Not Available [facility] (Lab) [address] [place], [address], 07/03/2022 19:50:28 07/04/1907/03/2022 CBC/C OMPLE TE BLD COUNT W/DIF F lymphocytes 28.3 % 16.0-4 7.0 Not Available [facility] (Lab) [address] [place], [address], 07/03/2022 19:50:28 07/04/1907/03/2022 CBC/C OMPLE TE BLD COUNT W/DIF F monocytes 5.0 % 5.0-12 .0 Not Available [facility] (Lab) [address] [place], [address], 07/03/2022 19:50:28 07/04/1907/03/2022 CBC/C OMPLE TE BLD COUNT W/DIF F eosinophils 1.3 % 1.0-7. 0 Not Available [facility] (Lab) [address] [place], [address], 07/03/2022 19:50:28 07/04/1907/03/2022 CBC/C OMPLE TE BLD COUNT W/DIF F basophils 0.3 % 0.0-2. 0 Not Available [facility] (Lab) [address] [place], [address], 07/03/2022 19:50:28 07/04/19 23 07/03/2022 CBC/C OMPLE TE BLD COUNT W/DIF F immature granulocytes 0.5 % 0.00-0 .50 Not Available [facility] (Lab) [address] [place], [address], 07/03/2022 19:50:28 07/04/19 23 07/03/2022 CBC/C OMPLE TE BLD COUNT W/DIF F neutrophils, absolute count 8.17 x10'3 /uL 1.5-8. 0 high Not Available [facility] (Lab) [address] [place], [address], 07/03/2022 19:50:28 07/04/19 23 07/03/2022 CBC/C OMPLE TE BLD COUNT W/DIF F lymphocytes, absolute count 3.58 x10'3 /uL 1.07-3 .43 high Not Available [facility] (Lab) [address] [place], [address], 07/03/2022 19:50:28 07/04/19 23 07/03/2022 CBC/C OMPLE TE BLD COUNT W/DIF F monocytes, absolute count 0.63 x10'3 /uL 0.29-0 .99 Not Available [facility] (Lab) [address] [place], [address], 07/03/2022 19:50:28 07/04/1907/03/2022 CBC/C OMPLE TE BLD COUNT W/DIF F eosinophils, absolute count 0.16 x10'3 /uL 0.02-0 .53 Not Available [facility] (Lab) [address] [place], [address], 07/03/2022 19:50:28 07/04/19 23 07/03/2022 CBC/C OMPLE TE BLD COUNT W/DIF F basophils, absolute count 0.04 x10'3 /uL 0.01-0 .08 Not Available [facility] (Lab) [address] [place], [address], 07/03/2022 19:50:28 07/04/19 23 07/03/2022 CBC/C OMPLE TE BLD COUNT W/DIF F immature granulocytes ,absolute 0.06 x10'3 /uL 0.00-0 .05 high Not Available [facility] (Lab) [address] [place], [address], 07/03/2022 19:50:28 07/04/19 23 07/03/2022 CBC/C OMPLE TE BLD COUNT W/DIF F nucleated red blood cells 0.0 % -0 Not Available [facility] (Lab) [address] [place], [address], 07/03/2022 19:50:28 07/04/19 23 07/03/2022 CBC/C OMPLE TE BLD COUNT W/DIF F NRBC# 0.00 x10'3 /uL Not Available [facility] (Lab) [address] [place], [address], 07/03/2022 19:50:28 07/04/19 23 07/03/2022 BASIC METAB OLIC PANEL sodium 137 mmol/ L 137-14 5 Not Available [facility] (Lab) [address] [place], [address], 07/03/2022 21:22:22 07/04/19 23 07/03/2022 BASIC METAB OLIC PANEL potassium 4.0 mmol/ L 3.5-5. 1 Not Available [facility] (Lab) [address] [place], [address], 07/03/2022 21:22:22 07/04/19 23 07/03/2022 BASIC METAB OLIC PANEL chloride 107 mmol/ L 98-107 Not Available [facility] (Lab) [address] [place], [address], 07/03/2022 21:22:22 07/04/19 23 07/03/2022 BASIC METAB OLIC PANEL carbon dioxide 19 mmol/ L 22-30 low Not Available [facility] (Lab) [address] [place], [address], 07/03/2022 21:22:22 07/04/19 23 07/03/2022 BASIC METAB OLIC PANEL anion gap 15.0 mmol/ L 14-22 Not Available [facility] (Lab) [address] [place], [address], 07/03/2022 21:22:22 07/04/19 23 07/03/2022 BASIC METAB OLIC PANEL glucose 116 mg/dL 70-99 high Not Available [facility] (Lab) [address] [place], [address], 07/03/2022 21:22:22 07/04/19 23 07/03/2022 BASIC METAB OLIC PANEL BUN 11 mg/dL 8-19 Not Available [facility] (Lab) [address] [place], [address], 07/03/2022 21:22:22 07/04/19 23 07/03/2022 BASIC METAB OLIC PANEL creatinine 0.69 mg/dL 0.66-1 .25 Not Available [facility] (Lab) [address] [place], [address], 07/03/2022 21:22:22 07/04/19 23 07/03/2022 BASIC METAB OLIC PANEL GFR >60 Refer ence Range : [place] ge GFR Healt hy Adult : >60 [...] calcu lator is avail able on the [facility] websi te: [email or web address] :[email or web address] ional [email or web address] [email or web address]/gf r_cal culat or Not Available [facility] (Lab) [address] [place], [address], 07/03/2022 21:22:22 07/04/19 23 07/03/2022 BASIC METAB OLIC PANEL calcium 9.2 mg/dL 8.4-10 .2 Not Available [facility] (Lab) [address] [place], [address], 07/03/2022 21:22:22 07/04/19 23 07/03/2022 LIPID PANEL cholesterol 116 mg/dL 140-19 9 low NIH MEL NSUS RECOM MENDA TION FOR ELIOT STERO L: ADULT CHILD LOW RISK: <200 <170 BORDE RLINE : <200- 239 ----- HIGH RISK: >240 >200 Not Available [facility] (Lab) [address] [place], [address], 07/03/2022 21:22:28 07/04/19 23 07/03/2022 LIPID PANEL triglyceride s 162 mg/dL 0-150 high NIH MEL NSUS REPOR T RECOM MENDA TION FOR TRIGL YCERI ARIEL: ADULT CHILD LOW RISK: <150 ----- BODER LINE: 150-1 99 ----- HIGH RISK: >200 ----- Not Available [facility] (Lab) [address] [place], [address], 07/03/2022 21:22:28 07/04/19 23 07/03/2022 LIPID PANEL HDL cholesterol 35 mg/dL 40- low Not Available [facility] (Lab) [address] [place], [address], 07/03/2022 21:22:28 07/04/19 23 07/03/2022 LIPID PANEL LDL cholesterol, calculated 49 mg/dL 0-130 NIH MEL NSUS REPOR T RECOM MENDA TIONS FOR LDL: ADULT CHILD LOW RISK <130 <110 (OPTI MAL LDL) <100 ----- BONNIEDE RLINE : 130-1 59 ----- HIGH RISK: >160 >130 A TRIGL YCERI DE RESUL T >400 INVAL IDATE S THE CALCU LATIO N FOR LDL FRACT IONAT ION - THE LDL RESUL T WILL NOT BE REPOR BRANDI. Not Available [facility] (Lab) [address] [place], [address], 07/03/2022 21:22:28 07/04/19 23 07/03/2022 HEPAT IC/LI FREDERICK PANEL alkaline phosphatase 76 U/L 38-126 Not Available [facility] (Lab) [address] [place], [address], 07/03/2022 21:22:29 07/04/19 23 07/03/2022 HEPAT IC/LI FREDERICK PANEL alanine aminotransfe rase 45 U/L 0-50 Not Available [facility] (Lab) [address] [place], [address], 07/03/2022 21:22:29 07/04/19 23 07/03/2022 HEPAT IC/LI FREDERICK PANEL aspartate aminotransfe rase 33 U/L 15-46 Not Available [facility] (Lab) [address] [place], [address], 07/03/2022 21:22:29 07/04/19 23 07/03/2022 HEPAT IC/LI FREDERICK PANEL bilirubin, total 0.60 mg/dL 0.20-1 .30 Not Available [facility] (Lab) [address] [place], [address], 07/03/2022 21:22:29 07/04/19 23 07/03/2022 HEPAT IC/LI FREDERICK PANEL bilirubin, conjugated (direct) 0.00 mg/dL 0.00-0 .30 Not Available [facility] (Lab) [address] [place], [address], 07/03/2022 21:22:29 07/04/19 23 07/03/2022 HEPAT IC/LI FREDERICK PANEL biliurubin,u ncong. (indirect) 0.20 mg/dL 0.00-1 .1 Not Available [facility] (Lab) [address] [place], [address], 07/03/2022 21:22:29 07/04/19 23 07/03/2022 HEPAT IC/LI FREDERICK PANEL total protein 7.0 g/dL 6.3-8. 2 Not Available [facility] (Lab) [address] [place], [address], 07/03/2022 21:22:29 07/04/19 23 07/03/2022 HEPAT IC/LI FREDERICK PANEL albumin 4.4 g/dL 3.4-5. 0 Not Available [facility] (Lab) [address] [place], [address], 07/03/2022 21:22:29 07/04/19 23 07/03/2022 HEPAT IC/LI FREDERICK PANEL globulin 2.6 g/dL 2.6-4. 2 Not Available [facility] (Lab) [address] [place], [address], 07/03/2022 21:22:29 07/04/19 23 07/03/2022 HEPAT IC/LI FREDERICK PANEL A/G ratio 1.7 ratio 1.0-2. 0 Not Available [facility] (Lab) [address] [place], [address], 07/03/2022 21:22:29 07/04/19 23 07/03/2022 PSA SCREE [...] . JCEM 2017, 102;1 161-1 173. PMID: 47197 103. Not Available [facility] (Lab) [address] [place], [address], 07/14/2022 12:12:01 07/04/19 23 07/14/2022 TESTO STERO NE, FREE+ TOTAL LC/MS testosterone , free 5.71 NG/dL 5.00-2 1.00 Not Available [facility] (Lab) [address] [place], [address], 07/14/2022 12:12:01 07/04/19 23 07/14/2022 TESTO STERO NE, FREE+ TOTAL LC/MS % free testosterone 2.15 % 1.50-4 .20 Perfo rmed at: [facility] [place] [address] , [place] [address] Lab Direc tor: Renu taylor MD, Phone : [phone] Not Available [facility] (Lab) [address] [place], [address], 07/14/2022 12:12:01 06/16/19 25 06/16/2024 imagi ng/di agnos tic resul t No observ ation record ed. [facility] [address], [place], [address], 06/16/2024 17:04:52 08/09/19 25 08/08/2024 imagi ng/di agnos tic resul t No observ ation record ed. [facility] [address], [place], [address], 08/08/2024 11:29:36 Result Notes None recorded. Problems Name Problem SNOMED Code Status Onset Date Resolution Date Notes Provider Name and Address Organization Details Recorded Time Open wound of hand 794103097 Active 2021 Not Available [facility] 3 14:48:27 Chronic obstructiv e pulmonary disease 15684383 Active 2021 Not Available [employer] 3 14:48:27 Hand and wrist extensor tendon rupture 277050225 Active 2021 Not Available [facility] 3 14:48:28 Injury of muscle and tendon at forearm level 298473779 Active 2021 Not Available [facility] 3 14:48:28 Laceration of hand 098803716 Active 2021 Not Available [facility] 3 14:48:28 Scoliosis deformity of spine 734028341 Active 2021 Not Available [facility] 3 14:48:28 Pain in right hand 2297242497119 09 Active 2021 Not Available [facility] 3 14:48:28 Osteoarthr itis 163230715 Active 2021 Not Available [facility] 3 14:48:28 Hyperlipid emia 03190544 Active 2021 Not Available [facility] 3 14:48:28 Degenerati on of interverte bral disc 08169488 Active 2021 Not Available [facility] 3 14:48:28 Erectile dysfunctio n 246104916 Active 2022 Domonique Troy MD [address] [facility] [place] [address], [place], [address] , [facility] [employer] [facility] 3 09:29:29 Insomnia 049429408 Active 2022 Domonique Troy MD [address] [facility] [place] [address], [place], [address] , [facility] [employer] [facility] 3 17:43:00 Problem Notes None recorded. Procedures Surgical History Date Name Laterality Status Provider Name and Address Organization Details Recorded Time 2 colonoscopy completed Domonique Troy MD [address] [facility] [place] [address], [place], [address], [facility] [employer] 07/06/2022 10:59:47 Imaging Results None recorded. Procedure Notes None recorded. Medical Equipment None [...] Recorded Body mass index (BMI) Body height Body weight Provider Name and Address Organization Details Last Updated DateTime 06/13/2022 27.6 kg/m2 180.34 cm 98376.29 g Not Available [facility] 06/28/2022 14:47:18 Date Recorded Body height Body mass index (BMI) Body weight Body temperature Heart rate Oxygen saturation Oxygen saturation in Arterial blood by Pulse oximetry Systolic blood pressure Diastolic blood pressure Provider Name and Address Organization Details Last Updated DateTime 3 180.34 cm 28.2 kg/m2 92420.6 6 g 97.9 [degF] 80 /min 98 % 98 % 134 mm[Hg] 80 mm[Hg] LISA Padilla - [facility] 3 09:18:00 Date Recorded Body height Body mass index (BMI) Body weight Body temperature Heart rate Oxygen saturation Oxygen saturation in Arterial blood by Pulse oximetry Systolic blood pressure Diastolic blood pressure Provider Name and Address Organization Details Last Updated DateTime 3 180.34 cm 29.3 kg/m2 50931.4 g 97.7 [degF] 76 /min 97 % 97 % 124 mm[Hg] 76 mm[Hg] Jens Howard RN [place] [facility] 3 12:12:22 Date Recorded Body mass index (BMI) Body height Oxygen saturation Oxygen saturation in Arterial blood by Pulse oximetry Heart rate Body temperature Body weight Systolic blood pressure Diastolic blood pressure Provider Name and Address Organization Details Last Updated DateTime 2 27.8 kg/m2 180.34 cm 96 % 96 % 81 /min 98 [degF] 46939.8 8 g 121 mm[Hg] 72 mm[Hg] Not Available [facility] 3 14:47:15 Social History Question Answer Notes LastModified by [employer] Details LastModified Time Tobacco Smoking Status Current Every Day Smoker 2 ppd Not Available [facility] 06/28/2022 14:45:26 In The 14 Days Before Symptom Onset, Have You Had Close Contact With A Laboratory-confirm ed COVID-19 While That Case Was Ill? No [id number] Information not available 06/28/2022 In The 14 Days Before Symptom Onset, Have You Had Close Contact With A Person Who Is Under Investigation For COVID-19 While That Person Was Ill? No [id number] Information not available 06/28/2022 What Type Of Diet Are You Following? REGULAR [id number] Information not available 06/28/2022 What Was The Date Of Your Most Recent Tobacco Screening? 10/25/2021 [id number] Information not available 06/28/2022 Have You Recently Traveled Abroad? No [id number] Information not available 06/28/2022 Do You Have Any Dietary Restrictions? No [id number] Information not available 06/28/2022 Sex: Unknown Functional Status Question Answer Note LastModified by [employer] Details LastModified Time What is your level of alcohol consumption? None [id number] Information not available 06/28/2022 What is your exercise level? Heavy [id number] Information not available 06/28/2022 Mental Status None recorded. Family History Relationship Description Onset Age of this Age Resolved Age Notes LastModified by Organization Details LastModified Time Mother Malignant tumor of colon [id number] Not available 06/28/2022 14:45:53 Maternal Grandmother Malignant tumor of colon [id number].999 [id number] Not available 06/28/2022 14:45:53 Sister Cerebrovascu lar accident [id number].612 [id number] Not available 06/28/2022 14:45:53 Sister Systemic lupus erythematosu s [id number].265 [id number] Not available 06/28/2022 14:45:53 Medical History Condition Response ARTHRITIS Y USE OF BLOOD THINNERS Y COPD Y Immunizations Vaccine Type Date Status Note Provider Nam e and Address Organization Details Recorded Time Influenza, split virus, quadrivalent, PF 01/26/2022 completed Not Available [facility] 14:51:46 Past Encounters Encounter ID Performer Location Encounter Start Date Encounter Closed Date Diagnosis/Indication Diagnosis SNOMED-CT Code Diagnosis ICD10 Code Diagnosis Note [id number] Domonique Troy MD [facility] [place] [address] [place] [address] [address] [place] [address] 06/21/2021 00:00:00 06/26/2021 22:11:14 [id number] Domonique Troy MD [facility] Primary [facility] [place] [address] [place] [address] [address] [place] [address] 08/31/2021 00:00:00 08/31/2021 17:02:32 [id number] Domonique Troy MD [facility] Primary [facility] [place] [address] [place] [address] [address] [place] [address] 09/28/2021 00:00:00 09/28/2021 12:22:48 [id number] Domonique Troy MD [facility] Primary [facility] [place] [address] [place] [address] 10/12/2021 00:00:00 10/27/2021 09:52:45 [id number] Domonique Troy MD [facility] Primary [facility] [place] [address] [facility] [address] [place] [address] 10/17/2021 00:00:00 10/17/2021 18:51:11 [id number] Lowell Saldana MD [facility] [address] [place] [address] 10/25/2021 00:00:00 10/25/2021 11:53:10 [id number] Lowell Saldana MD [facility] [address] [place] [address] 11/08/2021 00:00:00 11/08/2021 12:20:24 [id number] Lowell Saldana MD [facility] [address] [place] [address] 11/16/2021 00:00:00 11/16/2021 16:58:21 [id number] Lowell Saldana MD [facility] [address] [place] [address] 11/22/2021 00:00:00 11/22/2021 14:13:16 [id number] Lowell Saldana MD [facility] [address] [place] [address] 12/13/2021 00:00:00 12/13/2021 15:04:03 [id number] Lowell Saldana MD [facility] [place] [address] [place] [address] 01/03/2022 00:00:00 01/03/2022 16:56:40 [id number] Domonique Troy MD [facility] [place] [address] [place] [address] 01/26/2022 00:00:00 01/26/2022 18:09:34 [id number] Lowell Saldana MD [facility] [place] [address] [place] [address] 01/31/2022 00:00:00 01/31/2022 17:20:38 [id number] Domonique Troy MD [facility] [place] [address] [place] [address] 02/09/2022 00:00:00 02/09/2022 16:28:50 [id number] Lowell Saldana MD [facility] [address] [place] [address] 02/28/2022 00:00:00 02/28/2022 14:00:44 [id number] Lowell Saldana MD [facility] [place] [address] [place] [address] 03/28/2022 00:00:00 03/28/2022 14:21:46 [id number] Domonique Troy MD [facility] Primary Care [facility] [address] [facility] [address] [place] [address] 04/03/2022 00:00:00 04/03/2022 11:34:17 [id number] Lowell Saldana MD [facility] [place] [address] [place] [address] 06/13/2022 00:00:00 06/13/2022 12:17:43 [id number] Domonique Troy MD [facility] Primary Care [facility] [address] [facility] [address] [place] [address] 07/03/2022 09:11:50 07/03/2022 09:40:44 Adult health examination 782742676 Z00.00 Z13.1 Recommend shingles vaccines seriesTdap up to date 2Recomm end yearly flu and covid vaccinesCh carmen fasting labsColono scopy done 2021-will get report from Dr. Peres to know whenRecomm end smoking cessationP una ldct scan starting age 54 Erectile dysfunction 860 863060 F52.21 check labstadala nel 20 mg-reviewe d how to use properly and potential med s/e Hyperlipidemia [id number] E78.5 Z79.899 Screening for malignant neoplasm of prostate [id number] Z12.5 [id number] Domonique Troy MD [facility] Primary Care [facility] [address] [place] [address] 12/07/2022 12:07:08 12/07/2022 12:26:29 Chronic obstructive pulmonary disease [id number] J44.9 nebulizer machine ordereduse duoneb q6 hours prn Degenerati on of intervertebral disc [id number] M51.9 stablePt understand s this medication has risk for abuse/depe ndence and agrees to take it only as prescribed and to guard from loss/theft [id number] Chay Lamb, GOMEZ-C S_G [facility] [address] [place] [address] 10/01/2023 15:49:07 10/01/2023 16:21:22 Health Concerns Section Related Observation LastModified by Organization Detai ls LastModified Time None Recorded Concern Status LastModified by Organization Details LastModified Time None Recorded Advance Directives Directive None Recorded Payers Insurance Date Sequence Insurance Name Policy Number Policy Henriquez Covered Member ID Henriquez Member ID Guarantor Name 10/01/2023 1 [facility] [id number] Salvatore Cool [id number] Salvatore Cool 06/28/2022 [employer] [id number] Salvatore Cool Notes Date Note Type Note Provider Name and Address Organization Details Recorded Time 07/03/2022 text/html Here for annual check up Domonique Troy MD [address] [place] [address], [id number], [place] [facility] [employer] 07/03/2022 09:42:59 12/07/2022 text/html Was seeing neurology Dr. 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 Pain radiates down left leg, +numbness/tingling bilateral left leg. Left leg can be weak, he has fallen before from weakness. Pain constant, waxes and wanes in intensity. 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 Domonique Troy MD [address] [place] [address], [facility] [address], [place], [address], [facility] [employer] 12/13/2022 18:01:09
--- OUTSIDE RECORDS SUMMARY | 2024-10-29 13:33 | XMS_ITS | Clinical Summary ---
Author Organization [facility] Address [address] [place] [address] Care Team Providers Care Truck Technician Name Role Phone Unavailable Primary Care Provider Unavailabl e Source Comments [facility],non-owned Affiliates and Associated Physician Practices is amultiple site organization consisting of ambulatory clinics and hospital sitesin [place], [place], [place] and [place]. This disclosure is being madepursuant to the Care Everywhere program and may not contain all information available regarding this patient. 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
--- OUTSIDE RECORDS SUMMARY | 2024-10-29 13:33 | XMS_ITS | Clinical Summary ---
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 [address] PCP - General Family Practice 05/02/19
--- OUTSIDE RECORDS SUMMARY | 2024-10-29 13:33 | XMS_ITS | Data Portability ---
[facility] Address [address] [place] [address] Assessment Encounter Date Assessment Date Assessment LastModified by Organization Details LastModified Time 01/08/2024 01/08/2024 blood work. Medicines refilled. Nicotine patch. Blood pressure a little bit up he says stressful because of what is going on with the follow up with me in 4 months records from previous clinic LD CT [email or web address] Not available 01/26/2024 21:27:41 05/13/2024 05/13/2024 quitting tobacco care instructions refill medications check blood work he says that awhile back from different physician his cholesterol was 320 he changed his diet dramatically and it came down to 165 so he quit taking his medication we will see what it shows LD CT obtain his colonoscopy report declines pneumococcal or COVID shot [email or web address] Not available 05/13/2024 22:23:42 07/28/2024 07/28/2024 he would like a 2nd opinion we will send him to orthopedics no repetitive bending twisting or lifting over 10 lb until he was seen by Orthopedics. He will keep his regular follow up with me [email or web address] Not available 08/02/2024 21:21:45 09/19/2024 09/19/2024 Advised to quit smoking add Advair to his albuterol for his COPD healthy lifestyle care instructions we will follow up 12/24/2024. Orthopedics has him off work currently [email or web address] Not available 09/19/2024 18:10:00 Plan of Treatment Reminders Order Date Submit Date Provider Last Modified By Organization Details Last Modified Time Details Appointments ANY 15 2024 03:00P Brigette Almaraz MD Not available Not available Not available Lab lipid panel, serum 2024 025 [facility], [address], [address], [place], [address], 05/15/2024 08:25:33 CMP, serum or plasma 2024 025 [facility], [address], [address], [place], [address], 05/15/2024 08:25:34 CBC w/ auto diff 2024 025 [facility], [address], [address], [place], [address], 05/15/2024 08:25:36 CBC w/ auto diff 2023 024 [facility], [address], [address], [place], [address], 01/09/2024 08:31:27 lipid panel, serum 2023 024 [facility], [address], [address], [place], [address], 01/09/2024 08:31:26 CMP, serum or plasma 2023 024 [facility], [address], [address], [place], [address], 01/09/2024 08:31:26 Referral orthopedi c surgeon referral 2024 025 MARIA C Amos MD, [address], [place], [address], 08/05/2024 10:49:43 Procedures None recorded. Surgeries None recorded. Imaging LDCT, chest, for lung cancer screening 2024 025 [facility] (Imaging), [address] [facility] [address] [facility] [address], [place], [address], 09/29/2024 13:01:04 LDCT, chest, for lung cancer screening 2023 024 [facility] ([facility]), [address] [place], [address], 05/13/2024 17:18:03 Medication Orders Advair Diskus 250 mcg-50 mcg/dose powder for inhalatio n [address] [facility], [address] [place] [address], [id number], 09/19/2024 15:40:57 albuterol sulfate HFA 90 mcg/actua tion aerosol inhaler [address] [facility] [address] [facility], [address] [place] [address], [id number], 09/19/2024 15:40:57 tadalafil 20 mg tablet [address] [id number], [address] [place], [place], [id number], 05/13/2024 17:25:07 nicotine 7 mg/24 hr daily transderm al patch [address] [facility], [address] [place] [address], [id number], 01/08/2024 18:17:15 nicotine 14 mg/24 hr daily transderm al patch [address] [facility], [address] [place] [address], [id number], 01/08/2024 18:17:15 nicotine 21 mg/24 hr daily transderm al patch 2023 [address] [facility], [address] [place] [address], [id number], 01/08/2024 18:17:15 albuterol sulfate HFA 90 mcg/actua tion aerosol inhaler 2023 024 [facility], [address] [place] [address], [id number], 01/08/2024 18:17:15 Patient TargetsNo targets recorded. Patient Instructions Encounter Date Encounter Id Patient Instructions Last Modified By Organization Details Last Modified Time 05/13/2024 [id number] Quitting Tobacco : Care Instructions [email or web address] Not available 05/13/2024 17:25:07 07/28/2024 [id number] A healthy lifestyle: care instructions [email or web address] Not available 07/28/2024 17:54:10 Quitting Tobacco : Care Instructions [email or web address] Not available 07/28/2024 17:54:10 09/19/2024 [id number] A healthy lifestyle: care instructions [email or web address] Not available 09/19/2024 15:40:57 Quitting Tobacco : Care Instructions Not available 09/19/2024 15:40:57 Reason for Referral Orthopedic Surgeon Referral for Pain of bilateral hip joints Referring Physician: Maxim Almaraz, Internal Medicine, Encounter Date: 07/28/2024 Results Created Date Observation Date Name Description Value Unit Range Abnormal Flag Note LastModifiedBy Organization Detail LastModifiedTime 01/08/2001/09/2024 LIPID PANEL cholesterol, total 186 mg/dL 100-19 9 Not Available [facility] ([facility]) [address] [facility], [place], [address], 01/09/2024 08:31:25 01/08/2001/09/2024 LIPID PANEL triglyceride s 343 mg/dL 0-149 above high normal Not Available [facility] ([facility]) [address] [facility], [place], [address], 01/09/2024 08:31:25 01/08/2001/09/2024 LIPID PANEL HDL cholesterol 28 mg/dL >39 below low normal Not Available [facility] ([facility]) [address] [facility] [place], [address], 01/09/2024 08:31:25 01/08/20 24 01/09/2024 LIPID PANEL VLDL cholesterol juan pablo 58 mg/dL 5-40 above high normal Not Available [facility] ([facility]) [address] [facility] [place], [address], 01/09/2024 08:31:25 01/08/20 24 01/09/2024 LIPID PANEL LDL chol calc ([facility]) 100 mg/dL 0-99 above high normal Not Available [facility] ([facility]) [address] [facility] [place], [address], 01/09/2024 08:31:25 01/08/20 24 01/09/2024 COMP. METAB OLIC PANEL (14) glucose 79 mg/dL 70-99 Not Available [facility] ([facility]) [address] [facility] [place], [address], 01/09/2024 08:31:26 01/08/20 24 01/09/2024 COMP. METAB OLIC PANEL (14) BUN 7 mg/dL 6-24 Not Available [facility] ([facility]) [address] [place], [address], 01/09/2024 08:31:26 01/08/20 24 01/09/2024 COMP. METAB OLIC PANEL (14) creatinine 0.88 mg/dL 0.76-1 .27 Not Available [facility] ([facility]) [address] [place], [address], 01/09/2024 08:31:26 01/08/20 24 01/09/2024 COMP. METAB OLIC PANEL (14) eGFR 102 mL/mi n/1.7 3 >59 Not Available [facility] ([facility]) [address] [place], [address], 01/09/2024 08:31:26 01/08/20 24 01/09/2024 COMP. METAB OLIC PANEL (14) BUN/creatini ne ratio 8 9-20 below low normal Not Available [facility] ([facility]) [address] [facility] [place], [address], 01/09/2024 08:31:26 01/08/20 24 01/09/2024 COMP. METAB OLIC PANEL (14) sodium 139 mmol/ L 134-14 4 Not Available [facility] ([facility]) [address] [facility] [place], [address], 01/09/2024 08:31:26 01/08/20 24 01/09/2024 COMP. METAB OLIC PANEL (14) potassium 4.4 mmol/ L 3.5-5. 2 Not Available [facility] ([facility]) [address] [facility], [place], [address], 01/09/2024 08:31:26 01/08/20 24 01/09/2024 COMP. METAB OLIC PANEL (14) chloride 102 mmol/ L 96-106 Not Available [facility] ([facility]) [address] [facility], [place], [address], 01/09/2024 08:31:26 01/08/20 24 01/09/2024 COMP. METAB OLIC PANEL (14) carbon dioxide, total 24 mmol/ L 20-29 Not Available [facility] ([facility]) [address] [facility], [place], [address], 01/09/2024 08:31:26 01/08/20 24 01/09/2024 COMP. METAB OLIC PANEL (14) calcium 9.4 mg/dL 8.7-10 .2 Not Available [facility] ([facility]) [address] [facility] [place], [address], 01/09/2024 08:31:26 01/08/20 24 01/09/2024 COMP. METAB OLIC PANEL (14) protein, total 6.6 g/dL 6.0-8. 5 Not Available [facility] ([facility]) [address] [place], [address], 01/09/2024 08:31:26 01/08/20 24 01/09/2024 COMP. METAB OLIC PANEL (14) albumin 4.2 g/dL 3.8-4. 9 Not Available [facility] ([facility]) [address] [facility], [place], [address], 01/09/2024 08:31:26 01/08/20 24 01/09/2024 COMP. METAB OLIC PANEL (14) globulin, total 2.4 g/dL 1.5-4. 5 Not Available [facility] ([facility]) [address] [place], [address], 01/09/2024 08:31:26 01/08/20 24 01/09/2024 COMP. METAB OLIC PANEL (14) bilirubin, total 0.3 mg/dL 0.0-1. 2 Not Available [facility] ([facility]) [address] [place], [address], 01/09/2024 08:31:26 01/08/20 24 01/09/2024 COMP. METAB OLIC PANEL (14) alkaline phosphatase 85 IU/L 44-121 Not Available [facility]) [address] [place], [address], 01/09/2024 08:31:26 01/08/20 24 01/09/2024 COMP. METAB OLIC PANEL (14) AST (SGOT) 29 IU/L 0-40 Not Available [facility] ([facility]) [address] [place], [address], 01/09/2024 08:31:26 01/08/20 24 01/09/2024 COMP. METAB OLIC PANEL (14) ALT (SGPT) 57 IU/L 0-44 above high normal Not Available [facility] ([facility]) [address] [place], [address], 01/09/2024 08:31:26 01/08/20 24 01/09/2024 CBC WITH DIFFE RENTI AL/PL ATELE T WBC 12.4 x10e3 /uL 3.4-10 .8 above high normal Not Available [facility] ([facility]) [address] [place], [address], 01/09/2024 08:31:27 01/08/20 24 01/09/2024 CBC WITH DIFFE RENTI AL/PL ATELE T RBC 4.89 x10e6 /uL 4.14-5 .80 Not Available [facility] ([facility]) [address] [place], [address], 01/09/2024 08:31:27 01/08/20 24 01/09/2024 CBC WITH DIFFE RENTI AL/PL ATELE T hemoglobin 16.1 g/dL 13.0-1 7.7 Not Available [facility] ([facility]) [address] [place], [address], 01/09/2024 08:31:27 01/08/20 24 01/09/2024 CBC WITH DIFFE RENTI AL/PL ATELE T hematocrit 48.7 % 37.5-5 1.0 Not Available [facility] ([facility]) [address] [place], [address], 01/09/2024 08:31:27 01/08/20 24 01/09/2024 CBC WITH DIFFE RENTI AL/PL ATELE T MCV 100 fL 79-97 above high normal Not Available [facility] ([facility]) [address] [place], [address], 01/09/2024 08:31:27 01/08/20 24 01/09/2024 CBC WITH DIFFE RENTI AL/PL ATELE T MCH 32.9 pg 26.6-3 3.0 Not Available [facility] ([facility]) [address] [facility], [place], [address], 01/09/2024 08:31:27 01/08/20 24 01/09/2024 CBC WITH DIFFE RENTI AL/PL ATELE T MCHC 33.1 g/dL 31.5-3 5.7 Not Available [facility] ([facility]) [address] [facility], [place], [address], 01/09/2024 08:31:27 01/08/20 24 01/09/2024 CBC WITH DIFFE RENTI AL/PL ATELE T RDW 12.7 % 11.6-1 5.4 Not Available [facility] ([facility]) [address] [facility], [place], [address], 01/09/2024 08:31:27 01/08/20 24 01/09/2024 CBC WITH DIFFE RENTI AL/PL ATELE T platelets 228 x10e3 /uL 150-45 0 Not Available [facility] ([facility]) [address] [facility], [place], [address], 01/09/2024 08:31:27 01/08/20 24 01/09/2024 CBC WITH DIFFE RENTI AL/PL ATELE T neutrophils 53 % notest ab. Not Available [facility] ([facility]) [address] [place], [address], 01/09/2024 08:31:27 01/08/20 24 01/09/2024 CBC WITH DIFFE RENTI AL/PL ATELE T lymphs 40 % notest ab. Not Available [facility] ([facility]) [address] [place], [address], 01/09/2024 08:31:27 01/08/20 24 01/09/2024 CBC WITH DIFFE RENTI AL/PL ATELE T monocytes 5 % notest ab. Not Available [facility] ([facility]) [address] [facility], [place], [address], 01/09/2024 08:31:27 01/08/20 24 01/09/2024 CBC WITH DIFFE RENTI AL/PL ATELE T eos 2 % notest ab. Not Available [facility] ([facility]) [address] [facility], [place], [address], 01/09/2024 08:31:27 01/08/20 24 01/09/2024 CBC WITH DIFFE RENTI AL/PL ATELE T basos 0 % notest ab. Not Available [facility] ([facility]) [address] [facility], [place], [address], 01/09/2024 08:31:27 01/08/20 24 01/09/2024 CBC WITH DIFFE RENTI AL/PL ATELE T neutrophils (absolute) 6.5 x10e3 /uL 1.4-7. 0 Not Available [facility] ([facility]) [address] [facility], [place], [address], 01/09/2024 08:31:27 01/08/20 24 01/09/2024 CBC WITH DIFFE RENTI AL/PL ATELE T lymphs (absolute) 4.9 x10e3 /uL 0.7-3. 1 above high normal Not Available [facility] ([facility]) [address] [facility], [place], [address], 01/09/2024 08:31:27 01/08/20 24 01/09/2024 CBC WITH DIFFE RENTI AL/PL ATELE T monocytes(ab solute) 0.6 x10e3 /uL 0.1-0. 9 Not Available [facility] ([facility]) [address] [facility], [place], [address], 01/09/2024 08:31:27 01/08/20 24 01/09/2024 CBC WITH DIFFE RENTI AL/PL ATELE T eos (absolute) 0.2 x10e3 /uL 0.0-0. 4 Not Available [facility] ([facility]) [address] [place], [address], 01/09/2024 08:31:27 01/08/20 24 01/09/2024 CBC WITH DIFFE RENTI AL/PL ATELE T baso (absolute) 0.0 x10e3 /uL 0.0-0. 2 Not Available [facility] ([facility]) [address] [place], [address], 01/09/2024 08:31:27 01/08/20 24 01/09/2024 CBC WITH DIFFE RENTI AL/PL ATELE T immature granulocytes 0 % notest ab. Not Available [facility] ([facility]) [address] [place], [address], 01/09/2024 08:31:27 01/08/20 24 01/09/2024 CBC WITH DIFFE RENTI AL/PL ATELE T immature grans (abs) 0.0 x10e3 /uL 0.0-0. 1 Not Available [facility] ([facility]) [address] [place], [address], 01/09/2024 08:31:27 05/14/19 25 05/15/2024 LIPID PANEL cholesterol, total 185 mg/dL 100-19 9 Not Available [facility] ([facility]) [address] [place], [address], 05/15/2024 08:25:33 05/14/19 25 05/15/2024 LIPID PANEL triglyceride s 175 mg/dL 0-149 above high normal Not Available [facility] ([facility]) [address] [place], [address], 05/15/2024 08:25:33 05/14/19 25 05/15/2024 LIPID PANEL HDL cholesterol 33 mg/dL >39 below low normal Not Available [facility] ([facility]) [address] [facility] [place], [address], 05/15/2024 08:25:33 05/14/19 25 05/15/2024 LIPID PANEL VLDL cholesterol juan pablo 31 mg/dL 5-40 Not Available [facility] ([facility]) [address] [facility] [place], [address], 05/15/2024 08:25:33 05/14/19 25 05/15/2024 LIPID PANEL LDL chol calc ([facility]) 121 mg/dL 0-99 above high normal Not Available [facility] ([facility]) [address] [facility] [place], [address], 05/15/2024 08:25:33 05/14/19 25 05/15/2024 COMP. METAB OLIC PANEL (14) glucose 90 mg/dL 70-99 Not Available [facility] ([facility]) [address] [place] [place], [address], 05/15/2024 08:25:34 05/14/19 25 05/15/2024 COMP. METAB OLIC PANEL (14) BUN 6 mg/dL 6-24 Not Available [facility] ([facility]) [address] [facility] [place], [address], 05/15/2024 08:25:34 05/14/19 25 05/15/2024 COMP. METAB OLIC PANEL (14) creatinine 0.74 mg/dL 0.76-1 .27 below low normal Not Available [facility] ([facility]) [address] [facility] [place], [address], 05/15/2024 08:25:34 05/14/19 25 05/15/2024 COMP. METAB OLIC PANEL (14) eGFR 107 mL/mi n/1.7 3 >59 Not Available [facility] ([facility]) [address] [facility] [place], [address], 05/15/2024 08:25:34 05/14/19 25 05/15/2024 COMP. METAB OLIC PANEL (14) BUN/creatini ne ratio 8 9-20 below low normal Not Available [facility] ([facility]) [address] [facility] [place], [address], 05/15/2024 08:25:34 05/14/19 25 05/15/2024 COMP. METAB OLIC PANEL (14) sodium 141 mmol/ L 134-14 4 Not Available [facility] ([facility]) [address] [facility] [place], [address], 05/15/2024 08:25:34 05/14/19 25 05/15/2024 COMP. METAB OLIC PANEL (14) potassium 3.7 mmol/ L 3.5-5. 2 Not Available [facility] ([facility]) [address] [facility], [place], [address], 05/15/2024 08:25:34 05/14/19 25 05/15/2024 COMP. METAB OLIC PANEL (14) chloride 102 mmol/ L 96-106 Not Available [facility] ([facility]) [address] [place], [address], 05/15/2024 08:25:34 05/14/19 25 05/15/2024 COMP. METAB OLIC PANEL (14) carbon dioxide, total 23 mmol/ L 20-29 Not Available [facility] ([facility]) [address] [place], [address], 05/15/2024 08:25:34 05/14/19 25 05/15/2024 COMP. METAB OLIC PANEL (14) calcium 9.4 mg/dL 8.7-10 .2 Not Available [facility] ([facility]) [address] [place], [address], 05/15/2024 08:25:34 05/14/19 25 05/15/2024 COMP. METAB OLIC PANEL (14) protein, total 6.6 g/dL 6.0-8. 5 Not Available [facility] ([facility]) [address] [facility] [place], [address], 05/15/2024 08:25:34 05/14/19 25 05/15/2024 COMP. METAB OLIC PANEL (14) albumin 4.5 g/dL 3.8-4. 9 Not Available [facility] ([facility]) [address] [facility], [place], [address], 05/15/2024 08:25:34 05/14/19 25 05/15/2024 COMP. METAB OLIC PANEL (14) globulin, total 2.1 g/dL 1.5-4. 5 Not Available [facility] ([facility]) [address] [place], [address], 05/15/2024 08:25:34 05/14/19 25 05/15/2024 COMP. METAB OLIC PANEL (14) bilirubin, total 0.5 mg/dL 0.0-1. 2 Not Available [facility] ([facility]) [address] [place], [address], 05/15/2024 08:25:34 05/14/19 25 05/15/2024 COMP. METAB OLIC PANEL (14) alkaline phosphatase 93 IU/L 44-121 Not Available [facility]) [address] [facility], [place], [address], 05/15/2024 08:25:34 05/14/19 25 05/15/2024 COMP. METAB OLIC PANEL (14) AST (SGOT) 18 IU/L 0-40 Not Available [facility] ([facility]) [address] [place], [address], 05/15/2024 08:25:34 05/14/19 25 05/15/2024 COMP. METAB OLIC PANEL (14) ALT (SGPT) 28 IU/L 0-44 Not Available [facility] ([facility]) [address] [facility], [place], [address], 05/15/2024 08:25:34 05/14/1905/15/2024 CBC WITH DIFFE RENTI AL/PL ATELE T WBC 12.7 x10e3 /uL 3.4-10 .8 above high normal Not Available [facility] ([facility]) [address] [facility], [place], [address], 05/15/2024 08:25:36 05/14/1905/15/2024 CBC WITH DIFFE RENTI AL/PL ATELE T RBC 4.88 x10e6 /uL 4.14-5 .80 Not Available [facility] ([facility]) [address] [facility], [place], [address], 05/15/2024 08:25:36 05/14/19 25 05/15/2024 CBC WITH DIFFE RENTI AL/PL ATELE T hemoglobin 16.3 g/dL 13.0-1 7.7 Not Available [facility] ([facility]) [address] [facility], [place], [address], 05/15/2024 08:25:36 05/14/1905/15/2024 CBC WITH DIFFE RENTI AL/PL ATELE T hematocrit 47.3 % 37.5-5 1.0 Not Available [facility] ([facility]) [address] [facility], [place], [address], 05/15/2024 08:25:36 05/14/1905/15/2024 CBC WITH DIFFE RENTI AL/PL ATELE T MCV 97 fL 79-97 Not Available [facility] ([facility]) [address] [facility], [place], [address], 05/15/2024 08:25:36 05/14/19 25 05/15/2024 CBC WITH DIFFE RENTI AL/PL ATELE T MCH 33.4 pg 26.6-3 3.0 above high normal Not Available [facility] ([facility]) [address], [place], [address], 05/15/2024 08:25:36 05/14/1905/15/2024 CBC WITH DIFFE RENTI AL/PL ATELE T MCHC 34.5 g/dL 31.5-3 5.7 Not Available [facility] ([facility]) [address] [facility], [place], [address], 05/15/2024 08:25:36 05/14/1905/15/2024 CBC WITH DIFFE RENTI AL/PL ATELE T RDW 13.0 % 11.6-1 5.4 Not Available [facility] ([facility]) [address] [facility], [place], [address], 05/15/2024 08:25:36 05/14/19 25 05/15/2024 CBC WITH DIFFE RENTI AL/PL ATELE T platelets 277 x10e3 /uL 150-45 0 Not Available [facility] ([facility]) [address] [facility], [place], [address], 05/15/2024 08:25:36 05/14/1905/15/2024 CBC WITH DIFFE RENTI AL/PL ATELE T neutrophils 50 % notest ab. Not Available [facility] ([facility]) [address] [facility], [place], [address], 05/15/2024 08:25:36 05/14/1905/15/2024 CBC WITH DIFFE RENTI AL/PL ATELE T lymphs 44 % notest ab. Not Available [facility] ([facility]) [address] [facility], [place], [address], 05/15/2024 08:25:36 05/14/1905/15/2024 CBC WITH DIFFE RENTI AL/PL ATELE T monocytes 5 % notest ab. Not Available [facility] ([facility]) [address] [facility], [place], [address], 05/15/2024 08:25:36 05/14/1905/15/2024 CBC WITH DIFFE RENTI AL/PL ATELE T eos 1 % notest ab. Not Available [facility] ([facility]) [address] [facility], [place], [address], 05/15/2024 08:25:36 05/14/1905/15/2024 CBC WITH DIFFE RENTI AL/PL ATELE T basos 0 % notest ab. Not Available [facility] ([facility]) [address] [facility], [place], [address], 05/15/2024 08:25:36 05/14/1905/15/2024 CBC WITH DIFFE RENTI AL/PL ATELE T neutrophils (absolute) 6.3 x10e3 /uL 1.4-7. 0 Not Available [facility] ([facility]) [address] [facility], [place], [address], 05/15/2024 08:25:36 05/14/1905/15/2024 CBC WITH DIFFE RENTI AL/PL ATELE T lymphs (absolute) 5.5 x10e3 /uL 0.7-3. 1 above high normal Not Available [facility] ([facility]) [address] [facility], [place], [address], 05/15/2024 08:25:36 05/14/1905/15/2024 CBC WITH DIFFE RENTI AL/PL ATELE T monocytes(ab solute) 0.7 x10e3 /uL 0.1-0. 9 Not Available [facility] ([facility]) [address] [place], [address], 05/15/2024 08:25:36 05/14/19 25 05/15/2024 CBC WITH DIFFE RENTI AL/PL ATELE T eos (absolute) 0.1 x10e3 /uL 0.0-0. 4 Not Available [facility] ([facility]) [address] [facility], [place], [address], 05/15/2024 08:25:36 05/14/1905/15/2024 CBC WITH DIFFE RENTI AL/PL ATELE T baso (absolute) 0.0 x10e3 /uL 0.0-0. 2 Not Available [facility] ([facility]) [address] [facility], [place], [address], 05/15/2024 08:25:36 05/14/19 25 05/15/2024 CBC WITH DIFFE RENTI AL/PL ATELE T immature granulocytes 0 % notest ab. Not Available [facility] ([facility]) [address] [facility], [place], [address], 05/15/2024 08:25:36 05/14/19 25 05/15/2024 CBC WITH DIFFE RENTI AL/PL ATELE T immature grans (abs) 0.0 x10e3 /uL 0.0-0. 1 Not Available [facility] ([facility]) [address] [facility], [place], [address], 05/15/2024 08:25:36 01/01/20 24 01/01/2024 XR, lumbo sacra l spine , 4 or more view No observ ation record ed. [facility] [address] [place], [address], 07/28/2024 15:52:54 01/01/20 24 01/01/2024 XR, cervi juan pablo spine , 4 or 5 view No observ ation record ed. [facility] [address] [place], [address], 07/28/2024 15:52:59 01/01/20 24 01/01/2024 XR, thora cic spine , 4 or more view No observ ation record ed. [facility] [address] [place], [address], 07/28/2024 15:53:05 07/17/19 25 06/16/2024 XR, hip + pelvi s, bilat eral No observ ation record ed. [facility] [address], [place], [place], [id number], 07/24/2024 12:37:36 Result Notes None recorded. Problems Name Problem SNOMED Code Status Onset Date Resolution Date Notes Provider Name and Address Organization Details Recorded Time Hyperlipidemi a 19207508 Active 2023 Ashwin Beebe [place] null, [place] [facility] 4 16:36:45 Chronic obstructive pulmonary disease 82200930 Active 2023 Ashwin Beebe [place], [place] [facility] 4 16:36:46 Insomnia 463808707 Active 2023 Maxim Almaraz MD Attn: Ela osman,[address] [place], [address], [place] [facility] 4 21:24:13 Nicotine dependence 24099024 Active 2023 Maxim Almaraz MD Attn: Ela osman,[address] [place], [address], [place] [facility] 4 21:24:38 SARS-CoV-2 vaccination declined 0323337058 Active 2024 Maxim Almaraz MD Attn: Ela osman,[address] [place], [address] [facility] 5 22:24:03 Pneumococcal vaccination declined 352866869 Active 2024 Maxim Almaraz MD Attn: Ela osman,[address] [place], [address], [place] [facility] 5 22:24:05 Problem Notes None recorded. Medical Equipment None Reported. Medications Name Sig Start Date Stop Date Status Note LastModified by Organization Details LastModified Time nicotine 14 mg/24 hr daily transderm al patch APPLY 1 PATCH TOPICALL Y ONCE DAILY active Not Available Not Available No t Available gabapenti n 400 mg capsule TAKE 1 CAPSULE BY MOUTH FOUR TIMES DAILY NEEDED [...] Not Available Not Available No t Available Advair Diskus 250 mcg-50 mcg/dose powder for inhalatio n Inhale 1 puff twice a day by inhalati on route. 2024 active Not Available Not Available Not Avai lable nicotine 21 mg/24 hr daily transderm al [...] 2 PUFFS BY MOUTH EVERY 4 HOURS 2024 active Not Available Not Available Not Avai lable nicotine 7 mg/24 hr daily transderm al [...] Updated DateTime 5 180.34 cm 28 kg/m2 64535.4 3 g 86 /min 97 % 97 % 126 mm[Hg] 62 mm[Hg] Miryam Bravo MA [facility] 5 16:24:10 Date Recorded Body height Body mass index (BMI) Body weight Heart rate Oxygen saturation Oxygen saturation in Arterial blood by Pulse oximetry Systolic blood pressure Diastolic blood pressure Provider Name and Address Organization Details Last Updated DateTime 5 180.34 cm 28 kg/m2 07143.4 3 g 85 /min 97 % 97 % 130 mm[Hg] 68 mm[Hg] Miryam Bravo MA [facility] 5 15:20:41 Date Recorded Body height Body mass index (BMI) Body weight Heart rate Oxygen saturation Oxygen saturation in Arterial blood by Pulse oximetry Systolic blood pressure Diastolic blood pressure Provider Name and Address Organization Details Last Updated DateTime 5 180.34 cm 27.7 kg/m2 09727.0 9 g 86 /min 97 % 97 % 130 mm[Hg] 64 mm[Hg] Miryam Bravo MA [facility] 5 12:30:13 Date Recorded Body height Body mass index (BMI) Body weight Heart rate Oxygen saturation Oxygen saturation in Arterial blood by Pulse oximetry Systolic blood pressure Diastolic blood pressure Provider Name and Address Organization Details Last Updated DateTime 4 180.34 cm 30.1 kg/m2 37484.7 8 g 63 /min 96 % 96 % 142 mm[Hg] 80 mm[Hg] Sun García MA [facility] 4 15:29:43 Social History Question Answer Notes LastModified by Organizat ion Details LastModified Time Tobacco Smoking Status Current Every Day Smoker Sun García MA [facility] 01/08/2024 15:19:49 Do You Have An Advance Directive? No Information not available 01/08/2024 Are You Blind Or Do You Have Difficulty Seeing? No Information not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
--- OUTSIDE RECORDS SUMMARY | 2024-10-29 13:33 | XMS_ITS | Clinical Summary ---
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 Not on file N [...] P M CDT Height 180.3 cm (5' 11) 02/18/2021 1:55 PM CDT Body Mass Index 27.39 02/18/2021 1:55 PM CDT Plan of Treatment Health Maintenance Due Date Last Done Comments Colorectal Cancer Screening Colonoscopy (10 Years) 1969 Annual Physical 02/07/1972 Hepatitis C 1987 DTaP, Tdap and Td Vaccines ( 1 - Tdap) 02/07/1988 Hepatitis B Vaccines (1 of 3 - 19+ 3-dose series) 02/07/1988 Pneumococcal Vaccine: 50+ Ye ars (1 of 2 - PCV) 02/07/1988 Zoster Vaccines (1 of 2) 2019 COVID-19 Vaccine ( - 2023-2 5 season) 2023 Meningococcal B Vaccine Aged Out No l onger eligible based on patient's age to complete this topic Meningococcal Vaccine Aged Out No roosevelt randy eligible based on patient's age to complete this topic RSV Immunizations Under 20 Months Aged Out No longer eligible based on patient's age to complete this topic Insurance [facility] Care Teams Systems Admin Relationship Specialty Start Date End Date Non-Staff, Provider PCP - General 02/18/21
== END 2024-10-29 13:23 | disposition home or self-care (01) ==
LOC: ANHIMG 13:29
PROVIDERS: PCP Internal Medicine; Visit Provider Neurological Surgery
DX: M47.816 Spondylosis without myelopathy or radiculopathy, lumbar region (principal); M51.379 Other intervertebral disc degeneration, lumbosacral region without mention of lumbar back pain or lower extremity pain; M41.85 Other forms of scoliosis, thoracolumbar region; M43.04 Spondylolysis, thoracic region; M43.06 Spondylolysis, lumbar region
CPT/HCPCS: 72082; 72110

== ENCOUNTER 2024-12-02 13:05 | Outpatient (CLI) | payer OTHER, SELFPAY ==
--- OUTSIDE RECORDS SUMMARY | 2024-12-02 13:14 | XMS_ITS | Clinical Summary ---
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 [address] PCP - General Family Practice 05/02/19
--- OUTSIDE RECORDS SUMMARY | 2024-12-02 13:14 | XMS_ITS | Clinical Summary ---
Author Organization 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
--- OUTSIDE RECORDS SUMMARY | 2024-12-02 13:14 | XMS_ITS | Clinical Summary ---
Author Organization [facility] Address [address] [place] [address] Care Team Providers Care Demand Planning Manager Name Role Phone Unavailable Primary Care Provider Unavailabl e Source Comments [facility],non-owned Affiliates and Associated Physician Practices is amultiple site organization consisting of ambulatory clinics and hospital sitesin [place], [place], [place] and [place]. This disclosure is being madepursuant to the Care Everywhere program and may not contain all information available regarding this patient. 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
== END 2024-12-02 13:06 | disposition home or self-care (01) ==
LOC: ANHLAB 13:08
PROVIDERS: PCP Internal Medicine; Visit Provider Neurological Surgery
DX: F17.200 Nicotine dependence, unspecified, uncomplicated (principal)
CPT/HCPCS: 80307

== ENCOUNTER 2025-01-12 08:44 | Outpatient (CLI) | payer OTHER, SELFPAY ==
--- NOTE | ~2025-01-12 | CT_ITS ---
EXAMINATION: [id number] DATE: 01/12/2025 08:59 INDICATION: Lumbar spondylosis. TECHNIQUE: Computed tomography (CT) of the lumbar spine was performed without intravenous contrast. Automated exposure control and iterative reconstruction technique were employed. The dose-length product was 658.85 mGy-cm. COMPARISON: Lumbar spine radiographs 10/29/2024 FINDINGS: There is 2 mm retrolisthesis of L5 on S1. Vertebral body heights are normal. There is severely decreased disc height at L5-S1. The following disc levels are specifically discussed: L1-L2: The disc does not extend beyond the endplate margin. There is mild right and moderate left facet joint osteoarthritis. There is no neural foraminal stenosis. There is no central canal stenosis. L2-L3: The disc does not extend beyond the endplate margin. There is moderate right and mild left facet joint osteoarthritis. There is no neural foraminal stenosis. There is no central canal stenosis. L3-L4: The disc does not extend beyond the endplate margin. There is moderate bilateral facet joint osteoarthritis. There is no neural foraminal stenosis. There is no central canal stenosis. L4-L5: The disc is bulging. There is moderate right and mild left facet joint osteoarthritis. There is moderate right and mild left neural foraminal stenosis. There is mild central canal stenosis. L5-S1: The disc is bulging. There is moderate right and severe left facet joint osteoarthritis. There is moderate right and severe left neural foraminal stenosis. There is mild central canal stenosis. IMPRESSION: 1. Severe lower lumbar spondylosis. Reviewed, dictated and finalized at location E.
--- OUTSIDE RECORDS SUMMARY | 2025-01-12 09:16 | XMS_ITS | Clinical Summary ---
Author Organization [facility] Address [address] [place] [address] Care Team Providers Care Switchboard Troubleshooter Name Role Phone Unavailable Primary Care Provider Unavailabl e Source Comments [facility],non-owned Affiliates and Associated Physician Practices is amultiple site organization consisting of ambulatory clinics and hospital sitesin [place], [place] and [place]. This disclosure is being madepursuant to the Care Everywhere program and may not contain all information available regarding this patient. 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
--- OUTSIDE RECORDS SUMMARY | 2025-01-12 09:17 | XMS_ITS | Clinical Summary ---
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 [address] PCP - General Family Practice 05/02/19
== END 2025-01-12 08:45 | disposition home or self-care (01) ==
PROVIDERS: PCP Internal Medicine; Visit Provider Neurological Surgery
DX: M47.816 Spondylosis without myelopathy or radiculopathy, lumbar region (principal)
CPT/HCPCS: 72131

== ENCOUNTER 2025-01-12 10:37 | Outpatient (CLI) | payer OTHER, SELFPAY ==
--- NOTE | 2025-01-12 11:53 | ECG_ITS ---
Test Date: 2025-01-12 12:03:09 Measurements Intervals [place] Rate: 76 P: 47 SD: 165 QRS: 12 QRSD: 104 T: 48 QT: 363 QTc: 409 Interpretive Statements SINUS RHYTHM NORMAL ECG Electronically Signed On 01-12-2025 12:55:16 CDT by Will Bartlett M.D.
--- OUTSIDE RECORDS SUMMARY | 2025-01-12 12:12 | XMS_ITS | Clinical Summary ---
Author Organization [facility] Address [address] [place] [address] Care Team Providers Care Construction Manager Name Role Phone Unavailable Primary Care Provider Unavailabl e Source Comments [facility],non-owned Affiliates and Associated Physician Practices is amultiple site organization consisting of ambulatory clinics and hospital sitesin [place], [place], [place] and [place]. This disclosure is being madepursuant to the Care Everywhere program and may not contain all information available regarding this patient. 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
--- OUTSIDE RECORDS SUMMARY | 2025-01-12 12:12 | XMS_ITS | Clinical Summary ---
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
--- OUTSIDE RECORDS SUMMARY | 2025-01-12 12:12 | XMS_ITS | Clinical Summary ---
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 [address] PCP - General Family Practice 05/02/19
[2025-01-12 12:30] LABS: Hematocrit 46.9 % (42.0-52.0); Hemoglobin 16.7 g/dL (14.0-18.0); Mean Corpuscular HGB Conc 35.6 g/dl (32-36); Mean Corpuscular Hemoglobin 33.2 pg (26-34); Mean Corpuscular Volume 93.2 fl (80-100); Platelet Count Result 261 k/mm3 (150-375); Red Blood Count 5.03 M/mm3 (4.6-6.20); White Blood Count 16.3 K/mm3 (4.5-10.0)
[2025-01-12 12:38] LABS: Add Urine Microscopic? YES; Appearance Urine Clear (Clear); Glucose Urine UA Negative (Negative); Leukocyte Esterase Ur Negative LEU/UL (Negative); Nitrate Urine Negative (Negative); Specific Grav Ur 1.023 (1.001-1.035)
[2025-01-12 12:46] LABS: INR 1.0; Partial Thromboplastin Time 26.9 Seconds (22.3-36.8); Prothrombin Time 13.6 Seconds (11.1-14.7)
[2025-01-12 12:57] LABS: Anion Gap 8 mmol/L (4-12); Blood Urea Nitrogen 7 mg/dL (9-20); Calcium 9.2 mg/dL (8.4-10.2); Carbon Dioxide 29 mmol/L (22-30); Chloride 103 mmol/L (98-107); Estimated Glomerular Filt Rate > 60; Glucose 80 mg/dL (65-110); Potassium 3.8 mmol/L (3.4-5.0); Sodium 140 mmol/L (137-145)
== END 2025-01-12 10:38 | disposition home or self-care (01) ==
LOC: ANHSURGERY 10:41
PROVIDERS: PCP Internal Medicine; Visit Provider Neurological Surgery
DX: M47.816 Spondylosis without myelopathy or radiculopathy, lumbar region (principal)
CPT/HCPCS: 36415; 80048; 81001; 85027; 85610; 85730; 86850; 86900; 86901; 93005

== ENCOUNTER 2025-01-14 15:21 | Outpatient (CLI) | payer OTHER, SELFPAY ==
--- NOTE | ~2025-01-14 | XR_ITS ---
EXAMINATION: XR chest 2V, 01/14/2025 15:33 CDT HISTORY: COUGH x 2 weeks COMPARISON: No comparisons available. Technique: 2 views obtained. Findings: The lungs are clear, no effusion. No pneumothorax. Heart is normal size. Mediastinal and hilar contours are within normal limits. Bony thorax no acute abnormality. Impression: No acute cardiopulmonary abnormality. Reviewed, dictated and finalized at location A. Impression: No acute cardiopulmonary abnormality.
--- OUTSIDE RECORDS SUMMARY | 2025-01-14 16:08 | XMS_ITS | Clinical Summary ---
Author Organization 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 [address] PCP - General Family Practice 05/02/19
--- OUTSIDE RECORDS SUMMARY | 2025-01-14 16:08 | XMS_ITS | Clinical Summary ---
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
--- OUTSIDE RECORDS SUMMARY | 2025-01-14 16:08 | XMS_ITS | Clinical Summary ---
Author Organization [facility] Address [address] [place] [address] Care Team Providers Care Peoplesoft Crm Developer Name Role Phone Unavailable Primary Care Provider Unavailabl e Source Comments [facility],non-owned Affiliates and Associated Physician Practices is amultiple site organization consisting of ambulatory clinics and hospital sitesin [place], [place], [place] and [place]. This disclosure is being madepursuant to the Care Everywhere program and may not contain all information available regarding this patient. 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
== END 2025-01-14 15:22 | disposition home or self-care (01) ==
PROVIDERS: PCP Internal Medicine; Visit Provider Internal Medicine
DX: R05.9 Cough, unspecified (principal)
CPT/HCPCS: 71046

== ENCOUNTER 2025-01-19 11:27 | Outpatient (CLI) | payer OTHER, SELFPAY ==
[2025-01-19 11:48] LABS: Hematocrit 46.1 % (42.0-52.0); Hemoglobin 16.2 g/dL (14.0-18.0); Immature Granulocyte Percent A 0.5 % (0-0.5); Lymphocytes Absolute Auto 3.86 K/mm3 (0.9-3.2); Mean Corpuscular HGB Conc 35.1 g/dl (32-36); Mean Corpuscular Hemoglobin 32.9 pg (26-34); Mean Corpuscular Volume 93.5 fl (80-100); Nucleated Red Blood Cells Absolute Auto 0.000 K/mm3 (0.0-0.012); Nucleated Red Blood Cells Perc 0.0 % (0.0-0.2); Platelet Count Result 268 k/mm3 (150-375); Red Blood Count 4.93 M/mm3 (4.6-6.20); White Blood Count 13.2 K/mm3 (4.5-10.0)
--- OUTSIDE RECORDS SUMMARY | 2025-01-19 12:37 | XMS_ITS | Clinical Summary ---
Author Organization [facility] Address [address] [place] [address] Care Team Providers Care Statistician Mathematical Name Role Phone Unavailable Primary Care Provider Unavailabl e Source Comments [facility],non-owned Affiliates and Associated Physician Practices is amultiple site organization consisting of ambulatory clinics and hospital sitesin [place], [place], [place] and [place]. This disclosure is being madepursuant to the Care Everywhere program and may not contain all information available regarding this patient. 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
--- OUTSIDE RECORDS SUMMARY | 2025-01-19 12:37 | XMS_ITS | Clinical Summary ---
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 [address] PCP - General Family Practice 05/02/19
--- OUTSIDE RECORDS SUMMARY | 2025-01-19 12:37 | XMS_ITS | Clinical Summary ---
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
== END 2025-01-19 11:28 | disposition home or self-care (01) ==
LOC: ANHLAB 11:28
PROVIDERS: PCP Internal Medicine; Visit Provider Internal Medicine
DX: R05.9 Cough, unspecified (principal)
CPT/HCPCS: 36415; 85025